=== PATIENT | female | born 1970 | race African-American/Black ===

== ENCOUNTER 2021-10-10 03:16 | Inpatient (IN) | payer OTHER ==
[2021-10-10] MEDS ORDERED: DEXAMETHASONE SOD PHOSPHATE 4 MG/1 ML VIAL IVPUSH ONE (04:01)
[2021-10-10 04:02] LABS: BASO % 1.1 % (0-2.0); EOS % 0.8 % (0-4.5); HEMATOCRIT 27.8 % (32.4-45.2); HEMOGLOBIN 9.1 GM/dL (10.7-15.3); LYMPH % 4.1 % (8-40); MCH 32.5 pg (25.7-33.7); MCHC 32.7 g/dl (32.0-36.0); MEAN CELL VOLUME 99.5 fl (80-96); MEAN PLT VOLUME 8.4 fl (7.5-11.1); MONO % 11.2 % (3.8-10.2); NEUT % 82.8 % (42.8-82.8); PLATELET COUNT 232 10^3/uL (134-434); RDW 18.2 % (11.6-15.6); WHITE BLOOD COUNT 8.8 K/mm3 (4.0-10.0)
[2021-10-10] MEDS ORDERED: DEXAMETHASONE SOD PHOSPHATE 10 MG/1 ML VIAL ONE (04:03)
[2021-10-10 04:19] LABS: CHLORIDE 93 mmol/L (98-107); SODIUM 133 mmol/L (136-145)
[2021-10-10 04:22] LABS: ALBUMIN 2.2 g/dl (3.4-5.0); ANION GAP 14 MMOL/L (8-16); BLOOD UREA NITROGEN 101.4 mg/dL (7-18); CALCIUM 7.9 mg/dL (8.5-10.1); CO2 27 mmol/L (21-32); GLUCOSE,RANDOM 122 mg/dL (74-106); MAGNESIUM 3.1 mg/dL (1.8-2.4)
[2021-10-10 04:25] LABS: PHOSPHOROUS 7.4 mg/dL (2.5-4.9); SGOT/AST 42 U/L (15-37); SGPT/ALT 29 U/L (13-61)
[2021-10-10 04:27] LABS: BILIRUBIN,TOTAL 0.6 mg/dL (0.2-1)
[2021-10-10 04:28] LABS: ALK PHOS 385 U/L (45-117)
[2021-10-10 04:37] LABS: CREATININE 9.6 mg/dL (0.55-1.3)
[2021-10-10 04:52] LABS: ACTIVATED PTT 36.1 SECONDS (25.2-36.5); INR 1.12 (0.83-1.09); PROTHROMBIN TIME (PATIENT) 12.9 SEC (9.7-13.0)
[2021-10-10] MEDS ORDERED: ACETAMINOPHEN 325 MG TABLET (FP) PO ONE (05:33)
[2021-10-10] MEDS ORDERED: morphine CARPU-JECT 2 MG/1 ML DISP.SYRIN IVPUSH ONE ×2 (07:35→08:09)
[2021-10-10] MEDS: GABAPENTIN 300 MG CAPSULE PO SCH ×3 (07:36→22:48)
[2021-10-10 08:33] LABS: BASO % 0.5 % (0-2.0); EOS % 0.2 % (0-4.5); HEMATOCRIT 26.8 % (32.4-45.2); LYMPH % 1.9 % (8-40); MCH 33.4 pg (25.7-33.7); MCHC 33.8 g/dl (32.0-36.0); MEAN CELL VOLUME 98.9 fl (80-96); MEAN PLT VOLUME 8.6 fl (7.5-11.1); MONO % 3.9 % (3.8-10.2); NEUT % 93.5 % (42.8-82.8); PLATELET COUNT 237 10^3/uL (134-434); RBC 2.71 M/mm3 (3.60-5.2); WHITE BLOOD COUNT 9.7 K/mm3 (4.0-10.0)
[2021-10-10] MEDS ORDERED: metoPROLOL SUCCINATE 25 MG TAB.SR.24H (FP) PO SCH (10:00)
[2021-10-10] MEDS ORDERED: FAMOTIDINE 20 MG TABLET ONE (10:18)
[2021-10-10] MEDS ORDERED: SODIUM ZIRCONIUM CYCLOSILICATE (LOKELMA) 5 GM PACKET ONE (10:18)
[2021-10-10] MEDS ORDERED: ASPIRIN 81 MG CHEWABLE TABLETS ONE (10:18)
[2021-10-10] MEDS ORDERED: MULTIVITAMINS (DAILY MVI) TABLET (FP) ONE (10:18)
[2021-10-10] MEDS ORDERED: oxyCODONE HCL 5 MG TABLET PO PRN (10:26)
[2021-10-10] MEDS ORDERED: HALOPERIDOL 2 MG TABLET PO PRN (10:26)
[2021-10-10] MEDS ORDERED: DOCUSATE SODIUM 100 MG CAPSULE (FP) PO PRN (10:26)
[2021-10-10] MEDS: TORSEMIDE 100 MG TABLET PO SCH (12:39)
[2021-10-10] MEDS: SODIUM ZIRCONIUM CYCLOSILICATE (LOKELMA) 10 GM PACKET PO SCH (12:39)
[2021-10-10] MEDS: ASPIRIN 81 MG CHEWABLE TABLETS PO SCH (12:39)
[2021-10-10] MEDS: VITAMIN B COMP W-C 1 EA TABLET (NEPHRO-VITE) PO SCH (12:39)
[2021-10-10] MEDS: MULTIVITAMINS (DAILY MVI) TABLET (FP) PO SCH (12:40)
[2021-10-10] MEDS: CALCITRIOL 0.25 MCG CAPSULE (FP) PO SCH (12:40)
[2021-10-10] MEDS: METOPROLOL SUCCINATE 100 MG, METOPROLOL SUCCINATE 25 MG PO SCH (12:40)
[2021-10-10] MEDS: FAMOTIDINE 20 MG TABLET PO SCH (12:40)
[2021-10-10 13:14] LABS: ALBUMIN 2.1 g/dl (3.4-5.0); ALK PHOS 385 U/L (45-117); ANION GAP 16 MMOL/L (8-16); BILIRUBIN,TOTAL 0.6 mg/dL (0.2-1); BLOOD UREA NITROGEN 99.4 mg/dL (7-18); CALCIUM 7.8 mg/dL (8.5-10.1); CHLORIDE 91 mmol/L (98-107); CO2 26 mmol/L (21-32); CREATININE 9.8 mg/dL (0.55-1.3); GLUCOSE,RANDOM 108 mg/dL (74-106); SGOT/AST 49 U/L (15-37); SGPT/ALT 32 U/L (13-61); SODIUM 133 mmol/L (136-145); TOT PROT 6.9 g/dl (6.4-8.2)
[2021-10-10] MEDS ORDERED: SODIUM CHLORIDE 250 ML IV PRN ×2 (14:04→14:09)
[2021-10-10] MEDS: HALOPERIDOL 5 MG TABLET PO PRN (15:16)
[2021-10-10] MEDS ORDERED: oxyCODONE HCL 5 MG TABLET ONE (17:31)
[2021-10-10] MEDS: oxyCODONE HCL 5 MG TABLET PO PRN (17:35)
[2021-10-10 18:58] VITALS: BMI 44.6
[2021-10-10] MEDS: ALBUMIN HUMAN 25% 12.5 GM/50 ML VIAL IV SCH ×4 (19:00→20:30)
[2021-10-10] MEDS ORDERED: PHENYTOIN NA EXTENDED 100 MG CAPSULE (FP) PO SCH (22:00)
[2021-10-10] MEDS ORDERED: VANCOMYCIN/WATER FOR INJ (PEG) 1,000 MG/200 ML BAG IVPB ONE (22:30)
[2021-10-10] MEDS: PHENYTOIN NA EXTENDED 100 MG CAPSULE (FP) PO SCH (22:40)
[2021-10-10] MEDS: MELATONIN 5 MG TABLETS PO SCH (22:48)
[2021-10-11] MEDS: oxyCODONE HCL 5 MG TABLET PO PRN (00:02)
[2021-10-11] MEDS: HALOPERIDOL 5 MG TABLET PO PRN ×2 (00:03→22:40)
[2021-10-11] MEDS: GABAPENTIN 300 MG CAPSULE PO SCH ×4 (06:03→22:15)
[2021-10-11] MEDS ORDERED: LORazepam 2 MG/ML SDV VIAL IVPUSH ONE (12:42)
[2021-10-11] MEDS ORDERED: metoPROLOL SUCCINATE 25 MG TAB.SR.24H (FP) ONE (13:13)
[2021-10-11] MEDS: ASPIRIN 81 MG CHEWABLE TABLETS PO SCH ×2 (13:22→13:51)
[2021-10-11] MEDS: MULTIVITAMINS (DAILY MVI) TABLET (FP) PO SCH ×2 (13:22→13:53)
[2021-10-11] MEDS: FAMOTIDINE 20 MG TABLET PO SCH ×2 (13:22→13:52)
[2021-10-11] MEDS: TORSEMIDE 100 MG TABLET PO SCH ×2 (13:22→13:27)
[2021-10-11] MEDS: VITAMIN B COMP W-C 1 EA TABLET (NEPHRO-VITE) PO SCH ×2 (13:22→13:51)
[2021-10-11] MEDS: CALCITRIOL 0.25 MCG CAPSULE (FP) PO SCH ×2 (13:23→13:53)
[2021-10-11] MEDS: PHENYTOIN NA EXTENDED 100 MG CAPSULE (FP) PO SCH ×3 (13:23→22:40)
[2021-10-11] MEDS: METOPROLOL SUCCINATE 100 MG, METOPROLOL SUCCINATE 25 MG PO SCH ×2 (13:23→13:53)
[2021-10-11] MEDS: HEPARIN NA (PORCINE) 5,000 UNITS/ML 1ML VIAL SQ SCH ×3 (13:24→22:15)
[2021-10-11] MEDS: SODIUM ZIRCONIUM CYCLOSILICATE (LOKELMA) 10 GM PACKET PO SCH (13:51)
[2021-10-11] MEDS: MELATONIN 5 MG TABLETS PO SCH (22:15)
[2021-10-12] MEDS: GABAPENTIN 300 MG CAPSULE PO SCH ×3 (06:41→23:37)
[2021-10-12] MEDS: HALOPERIDOL 5 MG TABLET PO PRN (06:48)
[2021-10-12] MEDS ORDERED: metoPROLOL SUCCINATE 25 MG TAB.SR.24H (FP) ONE (09:44)
[2021-10-12] MEDS: METOPROLOL SUCCINATE 100 MG, METOPROLOL SUCCINATE 25 MG PO SCH (10:25)
[2021-10-12] MEDS: TORSEMIDE 100 MG TABLET PO SCH (10:25)
[2021-10-12] MEDS: HEPARIN NA (PORCINE) 5,000 UNITS/ML 1ML VIAL SQ SCH ×2 (10:27→23:35)
[2021-10-12] MEDS: ASPIRIN 81 MG CHEWABLE TABLETS PO SCH (10:27)
[2021-10-12] MEDS: VITAMIN B COMP W-C 1 EA TABLET (NEPHRO-VITE) PO SCH (10:27)
[2021-10-12] MEDS: SODIUM ZIRCONIUM CYCLOSILICATE (LOKELMA) 10 GM PACKET PO SCH (10:27)
[2021-10-12] MEDS: CALCITRIOL 0.25 MCG CAPSULE (FP) PO SCH (10:27)
[2021-10-12] MEDS: FAMOTIDINE 20 MG TABLET PO SCH (10:27)
[2021-10-12] MEDS: MULTIVITAMINS (DAILY MVI) TABLET (FP) PO SCH (10:27)
[2021-10-12] MEDS: PHENYTOIN NA EXTENDED 100 MG CAPSULE (FP) PO SCH ×2 (10:28→23:36)
[2021-10-12] MEDS ORDERED: SODIUM CHLORIDE 250 ML IV PRN (11:22)
[2021-10-12] MEDS: CEFAZOLIN 500 MG in DEXTROSE 5%-WATER - 50 ML IVPB SCH ×2 (15:16→23:35)
[2021-10-12] MEDS: MELATONIN 5 MG TABLETS PO SCH (23:36)
[2021-10-13] MEDS: GABAPENTIN 300 MG CAPSULE PO SCH ×4 (06:22→23:00)
[2021-10-13] MEDS ORDERED: LORazepam 2 MG/ML SDV VIAL IVPB ONE ×2 (07:11)
[2021-10-13] MEDS: TORSEMIDE 100 MG TABLET PO SCH (10:08)
[2021-10-13] MEDS: PHENYTOIN NA EXTENDED 100 MG CAPSULE (FP) PO SCH ×2 (10:08→23:00)
[2021-10-13] MEDS: SODIUM ZIRCONIUM CYCLOSILICATE (LOKELMA) 10 GM PACKET PO SCH (10:08)
[2021-10-13] MEDS: ASPIRIN 81 MG CHEWABLE TABLETS PO SCH (10:08)
[2021-10-13] MEDS: MULTIVITAMINS (DAILY MVI) TABLET (FP) PO SCH (10:09)
[2021-10-13] MEDS: CALCITRIOL 0.25 MCG CAPSULE (FP) PO SCH (10:09)
[2021-10-13] MEDS: METOPROLOL SUCCINATE 100 MG, METOPROLOL SUCCINATE 25 MG PO SCH (10:09)
[2021-10-13] MEDS: VITAMIN B COMP W-C 1 EA TABLET (NEPHRO-VITE) PO SCH (10:09)
[2021-10-13] MEDS: FAMOTIDINE 20 MG TABLET PO SCH (10:09)
[2021-10-13] MEDS: HEPARIN NA (PORCINE) 5,000 UNITS/ML 1ML VIAL SQ SCH ×2 (13:02→23:00)
[2021-10-13] MEDS: CEFAZOLIN 500 MG in DEXTROSE 5%-WATER - 50 ML IVPB SCH ×2 (13:02→23:00)
[2021-10-13] MEDS ORDERED: EPOETIN ALFA-EPBX 4,000 UNIT/ML VIAL IVPUSH ONE (13:45)
[2021-10-13 14:24] LABS: HEMATOCRIT 24.9 % (32.4-45.2); HEMOGLOBIN 8.3 GM/dL (10.7-15.3); MCH 33.3 pg (25.7-33.7); MCHC 33.5 g/dl (32.0-36.0); MEAN CELL VOLUME 99.4 fl (80-96); MEAN PLT VOLUME 8.4 fl (7.5-11.1); PLATELET COUNT 218 10^3/uL (134-434); RDW 17.9 % (11.6-15.6); WHITE BLOOD COUNT 8.5 K/mm3 (4.0-10.0)
[2021-10-13 14:42] LABS: CHLORIDE 97 mmol/L (98-107); SODIUM 137 mmol/L (136-145)
[2021-10-13 14:43] LABS: CALCIUM 7.6 mg/dL (8.5-10.1)
[2021-10-13 14:45] LABS: ALBUMIN 1.8 g/dl (3.4-5.0); ANION GAP 13 MMOL/L (8-16); BLOOD UREA NITROGEN 82.4 mg/dL (7-18); CO2 27 mmol/L (21-32); GLUCOSE,RANDOM 104 mg/dL (74-106)
[2021-10-13 14:48] LABS: PHOSPHOROUS 6.9 mg/dL (2.5-4.9); SGOT/AST 37 U/L (15-37); SGPT/ALT 27 U/L (13-61)
[2021-10-13 14:49] LABS: BILIRUBIN,TOTAL 0.5 mg/dL (0.2-1); TOT PROT 6.7 g/dl (6.4-8.2)
[2021-10-13 14:50] LABS: ALK PHOS 485 U/L (45-117); CREATININE 8.4 mg/dL (0.55-1.3)
[2021-10-13 14:58] LABS: ANISOCYTOSIS 0; MACROCYTOSIS 0; ROULEAU 2+
[2021-10-13] MEDS: LORazepam 2 MG/ML SDV VIAL IVPUSH PRN ×2 (16:27→23:45)
[2021-10-13] MEDS: MELATONIN 5 MG TABLETS PO SCH (23:00)
[2021-10-13] MEDS: OLANZapine 5 MG TABLET PO SCH (23:00)
[2021-10-13] MEDS: oxyCODONE HCL 5 MG TABLET PO PRN (23:44)
[2021-10-14] MEDS: GABAPENTIN 300 MG CAPSULE PO SCH ×3 (06:03→22:16)
[2021-10-14] MEDS: LORazepam 2 MG/ML SDV VIAL IVPUSH PRN ×2 (06:59→18:20)
[2021-10-14] MEDS: oxyCODONE HCL 5 MG TABLET PO PRN (06:59)
[2021-10-14] MEDS: ASPIRIN 81 MG CHEWABLE TABLETS PO SCH (10:43)
[2021-10-14] MEDS: PHENYTOIN NA EXTENDED 100 MG CAPSULE (FP) PO SCH ×2 (10:43→22:16)
[2021-10-14] MEDS: VITAMIN B COMP W-C 1 EA TABLET (NEPHRO-VITE) PO SCH (10:44)
[2021-10-14] MEDS: SODIUM ZIRCONIUM CYCLOSILICATE (LOKELMA) 10 GM PACKET PO SCH (10:44)
[2021-10-14] MEDS: CALCITRIOL 0.25 MCG CAPSULE (FP) PO SCH (10:45)
[2021-10-14] MEDS: FAMOTIDINE 20 MG TABLET PO SCH (10:45)
[2021-10-14] MEDS: MULTIVITAMINS (DAILY MVI) TABLET (FP) PO SCH (10:45)
[2021-10-14] MEDS: OLANZapine 5 MG TABLET PO SCH ×2 (10:47→22:18)
[2021-10-14] MEDS: METOPROLOL SUCCINATE 100 MG, METOPROLOL SUCCINATE 25 MG PO SCH (10:47)
[2021-10-14] MEDS: FUROSEMIDE 40 MG/4 ML INJECTABLE VIAL IVPUSH SCH (11:13)
[2021-10-14] MEDS: HEPARIN NA (PORCINE) 5,000 UNITS/ML 1ML VIAL SQ SCH ×2 (11:14→22:15)
[2021-10-14] MEDS: CEFAZOLIN 500 MG in DEXTROSE 5%-WATER - 50 ML IVPB SCH ×2 (11:14→22:15)
[2021-10-14] MEDS ORDERED: HALOPERIDOL LACTATE 5 MG/ML IM ONE (19:15)
[2021-10-14] MEDS: MELATONIN 5 MG TABLETS PO SCH (22:16)
[2021-10-15] MEDS: GABAPENTIN 300 MG CAPSULE PO SCH ×3 (05:57→23:06)
[2021-10-15] MEDS: ASPIRIN 81 MG CHEWABLE TABLETS PO SCH (10:16)
[2021-10-15] MEDS: SODIUM ZIRCONIUM CYCLOSILICATE (LOKELMA) 10 GM PACKET PO SCH (10:17)
[2021-10-15] MEDS: PHENYTOIN NA EXTENDED 100 MG CAPSULE (FP) PO SCH ×2 (10:17→23:06)
[2021-10-15] MEDS: VITAMIN B COMP W-C 1 EA TABLET (NEPHRO-VITE) PO SCH (10:20)
[2021-10-15] MEDS: CALCITRIOL 0.25 MCG CAPSULE (FP) PO SCH (10:20)
[2021-10-15] MEDS: FAMOTIDINE 20 MG TABLET PO SCH (10:20)
[2021-10-15] MEDS: MULTIVITAMINS (DAILY MVI) TABLET (FP) PO SCH (10:21)
[2021-10-15] MEDS: METOPROLOL SUCCINATE 100 MG, METOPROLOL SUCCINATE 25 MG PO SCH (10:21)
[2021-10-15] MEDS: OLANZapine 5 MG TABLET PO SCH ×2 (10:22→23:11)
[2021-10-15] MEDS: CEFAZOLIN 500 MG in DEXTROSE 5%-WATER - 50 ML IVPB SCH ×2 (11:48→23:05)
[2021-10-15] MEDS: FUROSEMIDE 40 MG/4 ML INJECTABLE VIAL IVPUSH SCH (11:49)
[2021-10-15] MEDS: HEPARIN NA (PORCINE) 5,000 UNITS/ML 1ML VIAL SQ SCH ×2 (11:52→23:05)
[2021-10-15] MEDS: LORazepam 2 MG/ML SDV VIAL IVPUSH PRN (18:36)
[2021-10-15] MEDS: MELATONIN 5 MG TABLETS PO SCH (23:07)
[2021-10-16] MEDS: LORazepam 2 MG/ML SDV VIAL IVPUSH PRN ×2 (01:17→11:44)
[2021-10-16] MEDS: GABAPENTIN 300 MG CAPSULE PO SCH ×3 (06:56→22:57)
[2021-10-16] MEDS: CEFAZOLIN 500 MG in DEXTROSE 5%-WATER - 50 ML IVPB SCH ×2 (09:22→22:55)
[2021-10-16] MEDS: HEPARIN NA (PORCINE) 5,000 UNITS/ML 1ML VIAL SQ SCH ×2 (09:24→22:57)
[2021-10-16] MEDS: MULTIVITAMINS (DAILY MVI) TABLET (FP) PO SCH (09:32)
[2021-10-16] MEDS: FAMOTIDINE 20 MG TABLET PO SCH (09:32)
[2021-10-16] MEDS: VITAMIN B COMP W-C 1 EA TABLET (NEPHRO-VITE) PO SCH (09:32)
[2021-10-16] MEDS: CALCITRIOL 0.25 MCG CAPSULE (FP) PO SCH (09:32)
[2021-10-16] MEDS: OLANZapine 5 MG TABLET PO SCH (09:35)
[2021-10-16] MEDS: FUROSEMIDE 40 MG/4 ML INJECTABLE VIAL IVPUSH SCH (09:36)
[2021-10-16] MEDS: SODIUM ZIRCONIUM CYCLOSILICATE (LOKELMA) 10 GM PACKET PO SCH (09:36)
[2021-10-16] MEDS: PHENYTOIN NA EXTENDED 100 MG CAPSULE (FP) PO SCH ×2 (11:44→22:55)
[2021-10-16] MEDS ORDERED: SODIUM CHLORIDE 250 ML IV PRN (13:26)
[2021-10-16] MEDS ORDERED: EPOETIN ALFA-EPBX 10,000 UNIT/ML VIAL SQ ONE (14:00)
[2021-10-16] MEDS ORDERED: metoPROLOL SUCCINATE 25 MG TAB.SR.24H (FP) ONE ×2 (17:20→17:23)
[2021-10-16] MEDS: ASPIRIN 81 MG CHEWABLE TABLETS PO SCH (17:26)
[2021-10-16] MEDS: METOPROLOL SUCCINATE 100 MG, METOPROLOL SUCCINATE 25 MG PO SCH (17:27)
[2021-10-16] MEDS: MELATONIN 5 MG TABLETS PO SCH (22:55)
[2021-10-16] MEDS: oxyCODONE HCL 5 MG TABLET PO PRN (23:00)
[2021-10-17] MEDS: OLANZapine 5 MG TABLET PO SCH ×3 (00:24→21:39)
[2021-10-17] MEDS: LORazepam 2 MG/ML SDV VIAL IVPUSH PRN ×3 (00:27→21:41)
[2021-10-17] MEDS: GABAPENTIN 300 MG CAPSULE PO SCH ×3 (06:39→21:39)
[2021-10-17] MEDS: oxyCODONE HCL 5 MG TABLET PO PRN (07:22)
[2021-10-17] MEDS ORDERED: metoPROLOL SUCCINATE 25 MG TAB.SR.24H (FP) ONE (09:16)
[2021-10-17] MEDS: HEPARIN NA (PORCINE) 5,000 UNITS/ML 1ML VIAL SQ SCH ×2 (11:45→21:41)
[2021-10-17] MEDS: SODIUM ZIRCONIUM CYCLOSILICATE (LOKELMA) 10 GM PACKET PO SCH (11:45)
[2021-10-17] MEDS: VITAMIN B COMP W-C 1 EA TABLET (NEPHRO-VITE) PO SCH (11:46)
[2021-10-17] MEDS: CALCITRIOL 0.25 MCG CAPSULE (FP) PO SCH (11:46)
[2021-10-17] MEDS: METOPROLOL SUCCINATE 100 MG, METOPROLOL SUCCINATE 25 MG PO SCH (11:46)
[2021-10-17] MEDS: MULTIVITAMINS (DAILY MVI) TABLET (FP) PO SCH (11:46)
[2021-10-17] MEDS: ASPIRIN 81 MG CHEWABLE TABLETS PO SCH (11:47)
[2021-10-17] MEDS: PHENYTOIN NA EXTENDED 100 MG CAPSULE (FP) PO SCH ×2 (11:47→21:39)
[2021-10-17] MEDS: FUROSEMIDE 40 MG/4 ML INJECTABLE VIAL IVPUSH SCH (11:48)
[2021-10-17] MEDS: FAMOTIDINE 20 MG TABLET PO SCH (11:49)
[2021-10-17] MEDS: CEFAZOLIN 500 MG in DEXTROSE 5%-WATER - 50 ML IVPB SCH ×2 (12:40→21:41)
[2021-10-17] MEDS: MELATONIN 5 MG TABLETS PO SCH (21:39)
[2021-10-17] MEDS: TRIAMCINOLONE ACET 0.1% 60 ML LOTION TP SCH (22:20)
[2021-10-18] MEDS: GABAPENTIN 300 MG CAPSULE PO SCH ×3 (06:11→22:03)
[2021-10-18] MEDS ORDERED: SODIUM CHLORIDE 250 ML IV PRN (08:54)
[2021-10-18] MEDS ORDERED: EPOETIN ALFA-EPBX 10,000 UNIT/ML VIAL SQ ONE (09:00)
[2021-10-18] MEDS: HEPARIN NA (PORCINE) 5,000 UNITS/ML 1ML VIAL SQ SCH ×2 (09:55→22:03)
[2021-10-18] MEDS: VITAMIN B COMP W-C 1 EA TABLET (NEPHRO-VITE) PO SCH (09:57)
[2021-10-18] MEDS: SODIUM ZIRCONIUM CYCLOSILICATE (LOKELMA) 10 GM PACKET PO SCH (09:57)
[2021-10-18] MEDS: FAMOTIDINE 20 MG TABLET PO SCH (09:57)
[2021-10-18] MEDS: CALCITRIOL 0.25 MCG CAPSULE (FP) PO SCH (09:58)
[2021-10-18 10:27] LABS: HEMATOCRIT 24.7 % (32.4-45.2); HEMOGLOBIN 8.3 GM/dL (10.7-15.3); MCH 33.2 pg (25.7-33.7); MCHC 33.6 g/dl (32.0-36.0); MEAN CELL VOLUME 98.9 fl (80-96); MEAN PLT VOLUME 8.4 fl (7.5-11.1); PLATELET COUNT 247 10^3/uL (134-434); RBC 2.49 M/mm3 (3.60-5.2); RDW 18.2 % (11.6-15.6); WHITE BLOOD COUNT 7.2 K/mm3 (4.0-10.0)
[2021-10-18] MEDS: LORazepam 2 MG/ML SDV VIAL IVPUSH PRN (10:30)
[2021-10-18 10:38] LABS: CALCIUM 8.3 mg/dL (8.5-10.1)
[2021-10-18 10:39] LABS: BLOOD UREA NITROGEN 68.8 mg/dL (7-18)
[2021-10-18 10:42] LABS: CREATININE 7.4 mg/dL (0.55-1.3)
[2021-10-18] MEDS ORDERED: LORazepam 2 MG/ML SDV VIAL IVPUSH ONE (11:15)
[2021-10-18] MEDS: PHENYTOIN NA EXTENDED 100 MG CAPSULE (FP) PO SCH ×2 (11:55→22:05)
[2021-10-18] MEDS: ASPIRIN 81 MG CHEWABLE TABLETS PO SCH (11:55)
[2021-10-18] MEDS: OLANZapine 5 MG TABLET PO SCH ×2 (11:56→22:06)
[2021-10-18] MEDS: METOPROLOL SUCCINATE 100 MG, METOPROLOL SUCCINATE 25 MG PO SCH (11:56)
[2021-10-18] MEDS: CEFAZOLIN 500 MG in DEXTROSE 5%-WATER - 50 ML IVPB SCH ×2 (15:32→22:05)
[2021-10-18] MEDS: TRIAMCINOLONE ACET 0.1% 60 ML LOTION TP SCH ×2 (15:32→22:06)
[2021-10-18] MEDS: SILVER SULFADIAZINE 1% TOP CREAM 50 GM JAR TP SCH (15:33)
[2021-10-18] MEDS: FUROSEMIDE 40 MG/4 ML INJECTABLE VIAL IVPUSH SCH (15:33)
[2021-10-18] MEDS: MELATONIN 5 MG TABLETS PO SCH (22:03)
[2021-10-18] MEDS: oxyCODONE HCL 5 MG TABLET PO PRN (22:04)
[2021-10-19] MEDS: LORazepam 2 MG/ML SDV VIAL IVPUSH PRN ×3 (00:56→08:53)
[2021-10-19] MEDS: GABAPENTIN 300 MG CAPSULE PO SCH ×3 (06:36→22:00)
[2021-10-19] MEDS ORDERED: INSULIN (NOVOLOG) ASPART 100 UNITS/ML 10ML VIAL ONE (08:29)
[2021-10-19] MEDS ORDERED: metoPROLOL SUCCINATE 25 MG TAB.SR.24H (FP) ONE (09:05)
[2021-10-19] MEDS: ASPIRIN 81 MG CHEWABLE TABLETS PO SCH (09:12)
[2021-10-19] MEDS: CALCITRIOL 0.25 MCG CAPSULE (FP) PO SCH (09:12)
[2021-10-19] MEDS: FAMOTIDINE 20 MG TABLET PO SCH (09:12)
[2021-10-19] MEDS: METOPROLOL SUCCINATE 100 MG, METOPROLOL SUCCINATE 25 MG PO SCH (09:12)
[2021-10-19] MEDS: VITAMIN B COMP W-C 1 EA TABLET (NEPHRO-VITE) PO SCH (09:12)
[2021-10-19] MEDS: FUROSEMIDE 40 MG/4 ML INJECTABLE VIAL IVPUSH SCH ×2 (09:13→10:34)
[2021-10-19] MEDS: SILVER SULFADIAZINE 1% TOP CREAM 50 GM JAR TP SCH (09:13)
[2021-10-19] MEDS: PHENYTOIN NA EXTENDED 100 MG CAPSULE (FP) PO SCH ×2 (09:14→23:02)
[2021-10-19] MEDS: TRIAMCINOLONE ACET 0.1% 60 ML LOTION TP SCH ×2 (09:14→22:00)
[2021-10-19] MEDS: OLANZapine 5 MG TABLET PO SCH ×2 (09:14→23:02)
[2021-10-19] MEDS: HEPARIN NA (PORCINE) 5,000 UNITS/ML 1ML VIAL SQ SCH ×2 (09:14→22:00)
[2021-10-19] MEDS: CEFAZOLIN 500 MG in DEXTROSE 5%-WATER - 50 ML IVPB SCH ×2 (11:58→22:00)
[2021-10-19 12:08] LABS: SARS-CoV-2 NAA Not Detected (Not Detected)
[2021-10-19] MEDS: SODIUM ZIRCONIUM CYCLOSILICATE (LOKELMA) 10 GM PACKET PO SCH (13:52)
[2021-10-19 19:31] VITALS: BP 131/67; PULSE 76; TEMP 97.7
[2021-10-19] MEDS: MELATONIN 5 MG TABLETS PO SCH (22:00)
== END 2021-10-20 00:30 | DRG 194 ==
LOC: JER 03:16 → JERBED 04:58 → J7W 18:02
PROVIDERS: ADMIT Internal Medicine; ATTEND Internal Medicine
PROC: 5A1D70Z Performance of Urinary Filtration, Intermittent, Less than 6 Hours Per Day (ICD-10-PCS; principal; 2021-10-13)
PROC: 5A1D70Z Performance of Urinary Filtration, Intermittent, Less than 6 Hours Per Day (ICD-10-PCS; 2021-10-16)
PROC: 5A1D70Z Performance of Urinary Filtration, Intermittent, Less than 6 Hours Per Day (ICD-10-PCS; 2021-10-18)
DX: I13.2 Hypertensive heart and chronic kidney disease with heart failure and with stage 5 chronic kidney disease, or end stage renal disease (principal); N18.6 End stage renal disease; I50.22 Chronic systolic (congestive) heart failure; Z99.2 Dependence on renal dialysis; E66.9 Obesity, unspecified; Z68.41 Body mass index [BMI] 40.0-44.9, adult; E87.70 Fluid overload, unspecified; L03.115 Cellulitis of right lower limb; G62.9 Polyneuropathy, unspecified; B95.61 Methicillin susceptible Staphylococcus aureus infection as the cause of diseases classified elsewhere; Z91.15 Patient's noncompliance with renal dialysis; I44.7 Left bundle-branch block, unspecified; I25.10 Atherosclerotic heart disease of native coronary artery without angina pectoris; R45.1 Restlessness and agitation; R60.1 Generalized edema; E66.01 Morbid (severe) obesity due to excess calories; E87.5 Hyperkalemia; I43 Cardiomyopathy in diseases classified elsewhere; D64.9 Anemia, unspecified; G40.909 Epilepsy, unspecified, not intractable, without status epilepticus; L97.529 Non-pressure chronic ulcer of other part of left foot with unspecified severity; L97.519 Non-pressure chronic ulcer of other part of right foot with unspecified severity; B95.62 Methicillin resistant Staphylococcus aureus infection as the cause of diseases classified elsewhere; G92.8 Other toxic encephalopathy; Z91.19 Patient's noncompliance with other medical treatment and regimen; Z88.0 Allergy status to penicillin
CPT/HCPCS: 36415; 71045-TC-FY; 73610-TC-LT-FY; 73630-TC-LT; 73630-TC-RT-FY; 80048; 80053; 80185; 82962; 83735; 84100; 84484; 85025; 85027; 85610; 85730; 86803; 87040; 87186; 87340; 93005; 93010; 93306-TC; 97162-GP; 99285-25; C9803-CS; G0480; J1644; Q5106; U0003; U0005

== ENCOUNTER 2021-10-29 00:43 | Inpatient (IN) | payer OTHER ==
[2021-10-29] MEDS ORDERED: ACETAMINOPHEN 325 MG TABLET (FP) PO ONE (02:48)
[2021-10-29] MEDS ORDERED: ACETAMINOPHEN 325 MG TABLET (FP) ONE (03:28)
[2021-10-29 04:16] LABS: BASO % 0.6 % (0-2.0); EOS % 4.7 % (0-4.5); HEMATOCRIT 25.5 % (32.4-45.2); HEMOGLOBIN 8.5 GM/dL (10.7-15.3); LYMPH % 7.5 % (8-40); MCH 32.3 pg (25.7-33.7); MCHC 33.2 g/dl (32.0-36.0); MEAN CELL VOLUME 97.5 fl (80-96); MEAN PLT VOLUME 7.3 fl (7.5-11.1); MONO % 6.8 % (3.8-10.2); NEUT % 80.4 % (42.8-82.8); PLATELET COUNT 393 10^3/uL (134-434); RBC 2.62 M/mm3 (3.60-5.2); RDW 17.8 % (11.6-15.6); WHITE BLOOD COUNT 7.7 K/mm3 (4.0-10.0)
[2021-10-29 04:44] LABS: CALCIUM 8.1 mg/dL (8.5-10.1)
[2021-10-29 04:45] LABS: ALBUMIN 1.8 g/dl (3.4-5.0)
[2021-10-29 04:47] LABS: BILIRUBIN,TOTAL 0.3 mg/dL (0.2-1); TOT PROT 8.2 g/dl (6.4-8.2)
[2021-10-29 04:53] LABS: BLOOD UREA NITROGEN 34.6 mg/dL (7-18)
[2021-10-29] MEDS ORDERED: ACETAMINOPHEN 325 MG TABLET (FP) PO PRN (11:09)
[2021-10-29] MEDS ORDERED: metoPROLOL SUCCINATE 25 MG TAB.SR.24H (FP) PO SCH (11:15)
[2021-10-29] MEDS ORDERED: metoPROLOL SUCCINATE 25 MG TAB.SR.24H (FP) ONE (12:04)
[2021-10-29] MEDS: METOPROLOL SUCCINATE 100 MG, METOPROLOL SUCCINATE 25 MG PO SCH (12:07)
[2021-10-29] MEDS: HEPARIN NA (PORCINE) 5,000 UNITS/ML 1ML VIAL SQ SCH ×2 (13:17→21:04)
[2021-10-29] MEDS: GABAPENTIN 300 MG CAPSULE PO SCH ×2 (13:17→21:05)
[2021-10-29] MEDS: ACETAMINOPHEN 325 MG TABLET (FP) PO PRN (15:58)
[2021-10-29] MEDS ORDERED: SODIUM CHLORIDE 250 ML IV PRN (17:40)
[2021-10-29] MEDS: PHENYTOIN NA EXTENDED 100 MG CAPSULE (FP) PO SCH (21:04)
[2021-10-30] MEDS: ACETAMINOPHEN 325 MG TABLET (FP) PO PRN ×3 (02:08→17:50)
[2021-10-30] MEDS: GABAPENTIN 300 MG CAPSULE PO SCH ×3 (05:07→22:50)
[2021-10-30] MEDS: HEPARIN NA (PORCINE) 5,000 UNITS/ML 1ML VIAL SQ SCH ×3 (05:07→22:50)
[2021-10-30 08:34] LABS: BASO % 0.6 % (0-2.0); HEMATOCRIT 22.5 % (32.4-45.2); HEMOGLOBIN 7.3 GM/dL (10.7-15.3); LYMPH % 7.6 % (8-40); MCH 31.6 pg (25.7-33.7); MCHC 32.3 g/dl (32.0-36.0); MEAN CELL VOLUME 97.9 fl (80-96); MEAN PLT VOLUME 7.4 fl (7.5-11.1); MONO % 10.3 % (3.8-10.2); NEUT % 75.5 % (42.8-82.8); PLATELET COUNT 364 10^3/uL (134-434); RDW 17.6 % (11.6-15.6); WHITE BLOOD COUNT 6.6 K/mm3 (4.0-10.0)
[2021-10-30 08:59] LABS: ALBUMIN 1.8 g/dl (3.4-5.0); BLOOD UREA NITROGEN 47.4 mg/dL (7-18); CALCIUM 8.1 mg/dL (8.5-10.1); MAGNESIUM 2.6 mg/dL (1.8-2.4)
[2021-10-30 09:02] LABS: CREATININE 5.7 mg/dL (0.55-1.3); PHOSPHOROUS 4.9 mg/dL (2.5-4.9)
[2021-10-30 09:04] LABS: BILIRUBIN,TOTAL 0.4 mg/dL (0.2-1); TOT PROT 7.4 g/dl (6.4-8.2)
[2021-10-30] MEDS: TORSEMIDE 100 MG TABLET PO SCH (11:00)
[2021-10-30] MEDS ORDERED: HALOPERIDOL 5 MG TABLET PO ONE (11:30)
[2021-10-30] MEDS ORDERED: OXYBUTYNIN CHLORIDE 5 MG TABLET PO ONE (11:30)
[2021-10-30] MEDS ORDERED: LORazepam 2 MG/ML SDV VIAL IVPUSH ONE (11:30)
[2021-10-30] MEDS ORDERED: oxyCODONE HCL 5 MG TABLET PO ONE (12:30)
[2021-10-30] MEDS ORDERED: EPOETIN ALFA-EPBX 4,000 UNIT/ML VIAL IVPUSH ONE (13:00)
[2021-10-30] MEDS ORDERED: metoPROLOL SUCCINATE 25 MG TAB.SR.24H (FP) ONE (17:44)
[2021-10-30] MEDS: MULTIVITAMINS (DAILY MVI) TABLET (FP) PO SCH (17:45)
[2021-10-30] MEDS: VITAMIN B COMP W-C 1 EA TABLET (NEPHRO-VITE) PO SCH (17:45)
[2021-10-30] MEDS: METOPROLOL SUCCINATE 100 MG, METOPROLOL SUCCINATE 25 MG PO SCH (17:45)
[2021-10-30] MEDS: FAMOTIDINE 20 MG TABLET PO SCH (17:47)
[2021-10-30] MEDS: SILVER SULFADIAZINE 1% TOP CREAM 50 GM JAR TP SCH (17:50)
[2021-10-30] MEDS: PHENYTOIN NA EXTENDED 100 MG CAPSULE (FP) PO SCH (22:49)
[2021-10-31] MEDS: HEPARIN NA (PORCINE) 5,000 UNITS/ML 1ML VIAL SQ SCH ×3 (05:16→21:01)
[2021-10-31] MEDS: GABAPENTIN 300 MG CAPSULE PO SCH ×3 (05:16→21:01)
[2021-10-31 10:24] LABS: HEMATOCRIT 25.3 % (32.4-45.2); HEMOGLOBIN 8.4 GM/dL (10.7-15.3); MCH 32.4 pg (25.7-33.7); MCHC 33.1 g/dl (32.0-36.0); MEAN CELL VOLUME 98.1 fl (80-96); MEAN PLT VOLUME 7.7 fl (7.5-11.1); PLATELET COUNT 391 10^3/uL (134-434); RBC 2.58 M/mm3 (3.60-5.2); WHITE BLOOD COUNT 6.2 K/mm3 (4.0-10.0)
[2021-10-31] MEDS ORDERED: HALOPERIDOL 5 MG TABLET PO ONE ×2 (10:29)
[2021-10-31] MEDS ORDERED: metoPROLOL SUCCINATE 25 MG TAB.SR.24H (FP) ONE (10:44)
[2021-10-31 10:47] LABS: BLOOD UREA NITROGEN 37.9 mg/dL (7-18); CALCIUM 8.1 mg/dL (8.5-10.1)
[2021-10-31 10:48] LABS: ALBUMIN 1.9 g/dl (3.4-5.0); MAGNESIUM 2.6 mg/dL (1.8-2.4)
[2021-10-31 10:49] LABS: CREATININE 4.6 mg/dL (0.55-1.3); PHOSPHOROUS 4.4 mg/dL (2.5-4.9)
[2021-10-31 10:51] LABS: BILIRUBIN,TOTAL 0.4 mg/dL (0.2-1); TOT PROT 7.5 g/dl (6.4-8.2)
[2021-10-31] MEDS: METOPROLOL SUCCINATE 100 MG, METOPROLOL SUCCINATE 25 MG PO SCH (10:56)
[2021-10-31] MEDS: MULTIVITAMINS (DAILY MVI) TABLET (FP) PO SCH (10:56)
[2021-10-31] MEDS: VITAMIN B COMP W-C 1 EA TABLET (NEPHRO-VITE) PO SCH (10:56)
[2021-10-31] MEDS: FAMOTIDINE 20 MG TABLET PO SCH (10:56)
[2021-10-31] MEDS: TORSEMIDE 100 MG TABLET PO SCH (10:57)
[2021-10-31] MEDS: SILVER SULFADIAZINE 1% TOP CREAM 50 GM JAR TP SCH (17:10)
[2021-10-31] MEDS: LORazepam 2 MG/ML SDV VIAL IVPUSH SCH (17:13)
[2021-10-31] MEDS: PHENYTOIN NA EXTENDED 100 MG CAPSULE (FP) PO SCH (21:01)
[2021-11-01] MEDS: GABAPENTIN 300 MG CAPSULE PO SCH ×3 (05:10→21:24)
[2021-11-01] MEDS: HEPARIN NA (PORCINE) 5,000 UNITS/ML 1ML VIAL SQ SCH ×3 (05:10→21:24)
[2021-11-01] MEDS: HALOPERIDOL 5 MG TABLET PO PRN (10:28)
[2021-11-01] MEDS: AMINO ACIDS/PROTEIN HYDROLYS 30 ML LIQUID.PKT PO SCH (10:28)
[2021-11-01] MEDS: LORazepam 2 MG/ML SDV VIAL IVPUSH SCH (10:28)
[2021-11-01] MEDS ORDERED: EPOETIN ALFA-EPBX 10,000 UNIT/ML VIAL SQ ONE (11:00)
[2021-11-01 11:52] LABS: HEMATOCRIT 23.1 % (32.4-45.2); HEMOGLOBIN 7.6 GM/dL (10.7-15.3); MCH 31.7 pg (25.7-33.7); MCHC 32.8 g/dl (32.0-36.0); MEAN CELL VOLUME 96.6 fl (80-96); MEAN PLT VOLUME 7.7 fl (7.5-11.1); PLATELET COUNT 374 10^3/uL (134-434); RBC 2.39 M/mm3 (3.60-5.2); RDW 17.9 % (11.6-15.6); WHITE BLOOD COUNT 6.6 K/mm3 (4.0-10.0)
[2021-11-01 12:10] LABS: CALCIUM 7.7 mg/dL (8.5-10.1)
[2021-11-01 12:11] LABS: BLOOD UREA NITROGEN 43.1 mg/dL (7-18)
[2021-11-01 12:14] LABS: CREATININE 5.2 mg/dL (0.55-1.3)
[2021-11-01] MEDS ORDERED: metoPROLOL SUCCINATE 25 MG TAB.SR.24H (FP) ONE (13:41)
[2021-11-01] MEDS: VITAMIN B COMP W-C 1 EA TABLET (NEPHRO-VITE) PO SCH (14:47)
[2021-11-01] MEDS: METOPROLOL SUCCINATE 100 MG, METOPROLOL SUCCINATE 25 MG PO SCH (14:48)
[2021-11-01] MEDS: MULTIVITAMINS (DAILY MVI) TABLET (FP) PO SCH (14:48)
[2021-11-01] MEDS: ERGOCALCIFEROL (VIT D2) 50,000 UNIT (1.25 MG) CAPSULE PO SCH (14:48)
[2021-11-01] MEDS: FAMOTIDINE 20 MG TABLET PO SCH (14:49)
[2021-11-01] MEDS: SILVER SULFADIAZINE 1% TOP CREAM 50 GM JAR TP SCH (14:49)
[2021-11-01] MEDS: TORSEMIDE 100 MG TABLET PO SCH (14:50)
[2021-11-01] MEDS: PHENYTOIN NA EXTENDED 100 MG CAPSULE (FP) PO SCH (21:24)
[2021-11-02] MEDS: HEPARIN NA (PORCINE) 5,000 UNITS/ML 1ML VIAL SQ SCH ×2 (06:01→15:02)
[2021-11-02] MEDS: GABAPENTIN 300 MG CAPSULE PO SCH ×2 (06:01→15:00)
[2021-11-02] MEDS ORDERED: metoPROLOL SUCCINATE 25 MG TAB.SR.24H (FP) ONE ×2 (08:52→08:54)
[2021-11-02] MEDS: METOPROLOL SUCCINATE 100 MG, METOPROLOL SUCCINATE 25 MG PO SCH (09:29)
[2021-11-02] MEDS: VITAMIN B COMP W-C 1 EA TABLET (NEPHRO-VITE) PO SCH (09:29)
[2021-11-02] MEDS: AMINO ACIDS/PROTEIN HYDROLYS 30 ML LIQUID.PKT PO SCH (09:30)
[2021-11-02] MEDS: LORazepam 2 MG/ML SDV VIAL IVPUSH SCH (09:31)
[2021-11-02] MEDS: FAMOTIDINE 20 MG TABLET PO SCH (09:32)
[2021-11-02] MEDS: MULTIVITAMINS (DAILY MVI) TABLET (FP) PO SCH (09:33)
[2021-11-02] MEDS: ACETAMINOPHEN 325 MG TABLET (FP) PO PRN (09:58)
[2021-11-02] MEDS: TORSEMIDE 100 MG TABLET PO SCH (12:44)
[2021-11-02] MEDS: MINERAL OIL/PET HY-PHL TOPICAL OINTMENT 454 GM JAR TP SCH (16:27)
[2021-11-02] MEDS: SILVER SULFADIAZINE 1% TOP CREAM 50 GM JAR TP SCH (16:27)
[2021-11-03] MEDS: GABAPENTIN 300 MG CAPSULE PO SCH ×4 (00:02→21:13)
[2021-11-03] MEDS: PHENYTOIN NA EXTENDED 100 MG CAPSULE (FP) PO SCH ×2 (00:02→21:12)
[2021-11-03] MEDS: HEPARIN NA (PORCINE) 5,000 UNITS/ML 1ML VIAL SQ SCH ×4 (00:02→21:13)
[2021-11-03] MEDS: AMINO ACIDS/PROTEIN HYDROLYS 30 ML LIQUID.PKT PO SCH (07:46)
[2021-11-03] MEDS: MULTIVITAMINS (DAILY MVI) TABLET (FP) PO SCH (09:15)
[2021-11-03] MEDS: FAMOTIDINE 20 MG TABLET PO SCH (09:15)
[2021-11-03] MEDS: VITAMIN B COMP W-C 1 EA TABLET (NEPHRO-VITE) PO SCH (09:15)
[2021-11-03] MEDS: HALOPERIDOL 5 MG TABLET PO PRN (09:16)
[2021-11-03] MEDS: LORazepam 2 MG/ML SDV VIAL IVPUSH SCH (09:42)
[2021-11-03 10:25] LABS: BASO % 1.1 % (0-2.0); EOS % 8.1 % (0-4.5); HEMATOCRIT 23.3 % (32.4-45.2); HEMOGLOBIN 7.6 GM/dL (10.7-15.3); LYMPH % 7.5 % (8-40); MCH 31.6 pg (25.7-33.7); MCHC 32.6 g/dl (32.0-36.0); MEAN PLT VOLUME 7.8 fl (7.5-11.1); MONO % 14.3 % (3.8-10.2); PLATELET COUNT 358 10^3/uL (134-434); RDW 17.9 % (11.6-15.6); WHITE BLOOD COUNT 5.9 K/mm3 (4.0-10.0)
[2021-11-03 10:50] LABS: ALBUMIN 1.7 g/dl (3.4-5.0); BLOOD UREA NITROGEN 52.7 mg/dL (7-18); CALCIUM 7.7 mg/dL (8.5-10.1)
[2021-11-03 10:52] LABS: CREATININE 5.5 mg/dL (0.55-1.3)
[2021-11-03 10:54] LABS: BILIRUBIN,TOTAL 0.5 mg/dL (0.2-1); TOT PROT 7.3 g/dl (6.4-8.2)
[2021-11-03] MEDS ORDERED: SODIUM CHLORIDE 250 ML IV PRN (11:00)
[2021-11-03] MEDS ORDERED: EPOETIN ALFA-EPBX 10,000 UNIT/ML VIAL IVPUSH ONE (11:00)
[2021-11-03] MEDS: ALBUMIN HUMAN 25% 12.5 GM/50 ML VIAL IV SCH ×2 (11:00→11:30)
[2021-11-03] MEDS: ACETAMINOPHEN 325 MG TABLET (FP) PO PRN (12:41)
[2021-11-03] MEDS: MINERAL OIL/PET HY-PHL TOPICAL OINTMENT 454 GM JAR TP SCH (15:20)
[2021-11-03] MEDS: SILVER SULFADIAZINE 1% TOP CREAM 50 GM JAR TP SCH (15:25)
[2021-11-03] MEDS: TORSEMIDE 100 MG TABLET PO SCH (15:29)
[2021-11-03] MEDS: METOPROLOL SUCCINATE 100 MG, METOPROLOL SUCCINATE 25 MG PO SCH (15:29)
[2021-11-04] MEDS: HEPARIN NA (PORCINE) 5,000 UNITS/ML 1ML VIAL SQ SCH ×3 (05:36→21:10)
[2021-11-04] MEDS: GABAPENTIN 300 MG CAPSULE PO SCH ×3 (05:36→21:10)
[2021-11-04] MEDS: AMINO ACIDS/PROTEIN HYDROLYS 30 ML LIQUID.PKT PO SCH (08:41)
[2021-11-04] MEDS ORDERED: metoPROLOL SUCCINATE 25 MG TAB.SR.24H (FP) ONE (09:19)
[2021-11-04] MEDS: VITAMIN B COMP W-C 1 EA TABLET (NEPHRO-VITE) PO SCH (09:23)
[2021-11-04] MEDS: MULTIVITAMINS (DAILY MVI) TABLET (FP) PO SCH (09:23)
[2021-11-04] MEDS: METOPROLOL SUCCINATE 100 MG, METOPROLOL SUCCINATE 25 MG PO SCH (09:23)
[2021-11-04] MEDS: FAMOTIDINE 20 MG TABLET PO SCH (09:23)
[2021-11-04] MEDS: LORazepam 2 MG/ML SDV VIAL IVPUSH SCH (09:25)
[2021-11-04] MEDS: TORSEMIDE 100 MG TABLET PO SCH (09:33)
[2021-11-04 09:34] LABS: BASO % 1.2 % (0-2.0); EOS % 7.2 % (0-4.5); HEMATOCRIT 23.4 % (32.4-45.2); HEMOGLOBIN 7.8 GM/dL (10.7-15.3); LYMPH % 8.4 % (8-40); MCH 32.4 pg (25.7-33.7); MCHC 33.2 g/dl (32.0-36.0); MEAN CELL VOLUME 97.6 fl (80-96); MEAN PLT VOLUME 7.6 fl (7.5-11.1); NEUT % 66.2 % (42.8-82.8); PLATELET COUNT 357 10^3/uL (134-434); RDW 18.2 % (11.6-15.6); WHITE BLOOD COUNT 5.2 K/mm3 (4.0-10.0)
[2021-11-04 10:00] LABS: ALBUMIN 1.7 g/dl (3.4-5.0); CALCIUM 7.7 mg/dL (8.5-10.1)
[2021-11-04 10:03] LABS: BILIRUBIN,TOTAL 0.6 mg/dL (0.2-1); CREATININE 4.9 mg/dL (0.55-1.3)
[2021-11-04 10:04] LABS: TOT PROT 7.2 g/dl (6.4-8.2)
[2021-11-04] MEDS: MINERAL OIL/PET HY-PHL TOPICAL OINTMENT 454 GM JAR TP SCH (13:01)
[2021-11-04] MEDS: SILVER SULFADIAZINE 1% TOP CREAM 50 GM JAR TP SCH (13:08)
[2021-11-04] MEDS: PHENYTOIN NA EXTENDED 100 MG CAPSULE (FP) PO SCH (21:10)
[2021-11-05] MEDS: HEPARIN NA (PORCINE) 5,000 UNITS/ML 1ML VIAL SQ SCH ×4 (05:34→21:39)
[2021-11-05] MEDS: GABAPENTIN 300 MG CAPSULE PO SCH ×3 (05:34→21:35)
[2021-11-05] MEDS ORDERED: metoPROLOL SUCCINATE 25 MG TAB.SR.24H (FP) ONE ×2 (09:15→15:57)
[2021-11-05] MEDS: AMINO ACIDS/PROTEIN HYDROLYS 30 ML LIQUID.PKT PO SCH (09:47)
[2021-11-05] MEDS: VITAMIN B COMP W-C 1 EA TABLET (NEPHRO-VITE) PO SCH (09:47)
[2021-11-05] MEDS: FAMOTIDINE 20 MG TABLET PO SCH (09:47)
[2021-11-05] MEDS: LORazepam 2 MG/ML SDV VIAL IVPUSH SCH (13:45)
[2021-11-05] MEDS: MULTIVITAMINS (DAILY MVI) TABLET (FP) PO SCH (13:45)
[2021-11-05 14:21] LABS: BF WBC & OTHER NUCLEATED CELLS 738 /mm3
[2021-11-05 14:34] LABS: BODY FLUID MACROPHAGES 56 %; BODY FLUID MESOTHELIAL 1 %; BODY FLUID MONOCYTE 13 %
[2021-11-05] MEDS: TORSEMIDE 100 MG TABLET PO SCH (15:27)
[2021-11-05] MEDS: METOPROLOL SUCCINATE 100 MG, METOPROLOL SUCCINATE 25 MG PO SCH (16:01)
[2021-11-05] MEDS: SILVER SULFADIAZINE 1% TOP CREAM 50 GM JAR TP SCH (16:02)
[2021-11-05] MEDS: MINERAL OIL/PET HY-PHL TOPICAL OINTMENT 454 GM JAR TP SCH (16:02)
[2021-11-05] MEDS: PHENYTOIN NA EXTENDED 100 MG CAPSULE (FP) PO SCH (21:36)
[2021-11-06] MEDS: GABAPENTIN 300 MG CAPSULE PO SCH ×3 (07:04→22:09)
[2021-11-06] MEDS: HEPARIN NA (PORCINE) 5,000 UNITS/ML 1ML VIAL SQ SCH ×3 (07:04→22:09)
[2021-11-06] MEDS ORDERED: metoPROLOL SUCCINATE 25 MG TAB.SR.24H (FP) ONE (09:13)
[2021-11-06] MEDS: AMINO ACIDS/PROTEIN HYDROLYS 30 ML LIQUID.PKT PO SCH (09:24)
[2021-11-06] MEDS: TORSEMIDE 100 MG TABLET PO SCH (09:24)
[2021-11-06] MEDS: METOPROLOL SUCCINATE 100 MG, METOPROLOL SUCCINATE 25 MG PO SCH (09:24)
[2021-11-06] MEDS: MULTIVITAMINS (DAILY MVI) TABLET (FP) PO SCH (09:25)
[2021-11-06] MEDS: FAMOTIDINE 20 MG TABLET PO SCH (09:25)
[2021-11-06] MEDS: VITAMIN B COMP W-C 1 EA TABLET (NEPHRO-VITE) PO SCH (09:26)
[2021-11-06] MEDS: SILVER SULFADIAZINE 1% TOP CREAM 50 GM JAR TP SCH (09:27)
[2021-11-06] MEDS: MINERAL OIL/PET HY-PHL TOPICAL OINTMENT 454 GM JAR TP SCH (09:28)
[2021-11-06] MEDS: LORazepam 2 MG/ML SDV VIAL IVPUSH SCH (11:30)
[2021-11-06] MEDS ORDERED: SODIUM CHLORIDE 250 ML IV PRN (12:37)
[2021-11-06] MEDS: PHENYTOIN NA EXTENDED 100 MG CAPSULE (FP) PO SCH (22:08)
[2021-11-07] MEDS: HEPARIN NA (PORCINE) 5,000 UNITS/ML 1ML VIAL SQ SCH ×3 (05:44→21:22)
[2021-11-07] MEDS: GABAPENTIN 300 MG CAPSULE PO SCH ×3 (05:44→21:21)
[2021-11-07 07:44] LABS: BASO % 1.3 % (0-2.0); EOS % 7.8 % (0-4.5); LYMPH % 9.7 % (8-40); MCH 32.3 pg (25.7-33.7); MCHC 33.1 g/dl (32.0-36.0); MEAN CELL VOLUME 97.5 fl (80-96); MEAN PLT VOLUME 7.5 fl (7.5-11.1); MONO % 17.3 % (3.8-10.2); NEUT % 63.9 % (42.8-82.8); PLATELET COUNT 336 10^3/uL (134-434); RBC 2.46 M/mm3 (3.60-5.2); RDW 18.1 % (11.6-15.6)
[2021-11-07 08:01] LABS: BLOOD UREA NITROGEN 44.8 mg/dL (7-18); CALCIUM 7.9 mg/dL (8.5-10.1)
[2021-11-07] MEDS ORDERED: metoPROLOL SUCCINATE 25 MG TAB.SR.24H (FP) ONE (12:12)
[2021-11-07] MEDS: LORazepam 2 MG/ML SDV VIAL IVPUSH SCH (12:42)
[2021-11-07] MEDS: AMINO ACIDS/PROTEIN HYDROLYS 30 ML LIQUID.PKT PO SCH (12:42)
[2021-11-07] MEDS: METOPROLOL SUCCINATE 100 MG, METOPROLOL SUCCINATE 25 MG PO SCH (12:43)
[2021-11-07] MEDS: MULTIVITAMINS (DAILY MVI) TABLET (FP) PO SCH (12:44)
[2021-11-07] MEDS: VITAMIN B COMP W-C 1 EA TABLET (NEPHRO-VITE) PO SCH (12:44)
[2021-11-07] MEDS: MINERAL OIL/PET HY-PHL TOPICAL OINTMENT 454 GM JAR TP SCH (12:44)
[2021-11-07] MEDS: FAMOTIDINE 20 MG TABLET PO SCH (12:44)
[2021-11-07] MEDS: TORSEMIDE 100 MG TABLET PO SCH (12:45)
[2021-11-07] MEDS: SILVER SULFADIAZINE 1% TOP CREAM 50 GM JAR TP SCH (12:46)
[2021-11-07 14:11] LABS: BODY FLUID ALBUMIN 1.6 g/dL (Not Estab.)
[2021-11-07] MEDS: DOXYCYCLINE HYCLATE 100 MG CAPSULE PO SCH (18:54)
[2021-11-07] MEDS: PHENYTOIN NA EXTENDED 100 MG CAPSULE (FP) PO SCH (21:21)
[2021-11-08] MEDS: HEPARIN NA (PORCINE) 5,000 UNITS/ML 1ML VIAL SQ SCH ×3 (05:12→21:48)
[2021-11-08] MEDS: GABAPENTIN 300 MG CAPSULE PO SCH ×3 (05:12→21:48)
[2021-11-08] MEDS ORDERED: metoPROLOL SUCCINATE 25 MG TAB.SR.24H (FP) ONE (09:46)
[2021-11-08] MEDS: FAMOTIDINE 20 MG TABLET PO SCH (09:51)
[2021-11-08] MEDS: VITAMIN B COMP W-C 1 EA TABLET (NEPHRO-VITE) PO SCH (09:51)
[2021-11-08] MEDS: MULTIVITAMINS (DAILY MVI) TABLET (FP) PO SCH (09:51)
[2021-11-08] MEDS: AMINO ACIDS/PROTEIN HYDROLYS 30 ML LIQUID.PKT PO SCH (09:51)
[2021-11-08] MEDS: METOPROLOL SUCCINATE 100 MG, METOPROLOL SUCCINATE 25 MG PO SCH (09:52)
[2021-11-08] MEDS: DOXYCYCLINE HYCLATE 100 MG CAPSULE PO SCH ×2 (09:52→18:46)
[2021-11-08] MEDS: SILVER SULFADIAZINE 1% TOP CREAM 50 GM JAR TP SCH (09:53)
[2021-11-08] MEDS: MINERAL OIL/PET HY-PHL TOPICAL OINTMENT 454 GM JAR TP SCH (09:53)
[2021-11-08] MEDS: TORSEMIDE 100 MG TABLET PO SCH (09:55)
[2021-11-08] MEDS: ERGOCALCIFEROL (VIT D2) 50,000 UNIT (1.25 MG) CAPSULE PO SCH (09:56)
[2021-11-08] MEDS ORDERED: SODIUM CHLORIDE 250 ML IV PRN (13:03)
[2021-11-08] MEDS ORDERED: EPOETIN ALFA-EPBX 10,000 UNIT/ML VIAL SQ ONE (13:15)
[2021-11-08] MEDS: LORazepam 2 MG/ML SDV VIAL IVPUSH SCH (13:50)
[2021-11-08] MEDS: PHENYTOIN NA EXTENDED 100 MG CAPSULE (FP) PO SCH (21:48)
[2021-11-09] MEDS: GABAPENTIN 300 MG CAPSULE PO SCH ×4 (05:08→21:49)
[2021-11-09] MEDS: HEPARIN NA (PORCINE) 5,000 UNITS/ML 1ML VIAL SQ SCH ×2 (05:08→05:22)
[2021-11-09] MEDS ORDERED: ONDANSETRON 4 MG/2 ML VIAL IVPUSH PRN (09:05)
[2021-11-09] MEDS ORDERED: PROMETHAZINE HCL 25 MG/1 ML VIAL IVPUSH PRN (09:05)
[2021-11-09] MEDS ORDERED: MIDAZOLAM HCL 2 MG/2 ML SINGLE DOSE VIAL ONE (09:22)
[2021-11-09] MEDS ORDERED: LIDOCAINE HCL 1%, 10 MG/ML (20ML VIAL) NR ONE (09:28)
[2021-11-09] MEDS ORDERED: METOPROLOL TARTRATE 5 MG/5 ML VIAL ONE (09:30)
[2021-11-09] MEDS ORDERED: metoPROLOL SUCCINATE 25 MG TAB.SR.24H (FP) ONE (09:58)
[2021-11-09] MEDS: METOPROLOL SUCCINATE 100 MG, METOPROLOL SUCCINATE 25 MG PO SCH (10:44)
[2021-11-09] MEDS: AMINO ACIDS/PROTEIN HYDROLYS 30 ML LIQUID.PKT PO SCH (10:44)
[2021-11-09] MEDS: FAMOTIDINE 20 MG TABLET PO SCH (10:44)
[2021-11-09] MEDS: MULTIVITAMINS (DAILY MVI) TABLET (FP) PO SCH (10:44)
[2021-11-09] MEDS: TORSEMIDE 100 MG TABLET PO SCH (10:44)
[2021-11-09] MEDS: DOXYCYCLINE HYCLATE 100 MG CAPSULE PO SCH ×2 (10:45→17:24)
[2021-11-09] MEDS: VITAMIN B COMP W-C 1 EA TABLET (NEPHRO-VITE) PO SCH (10:45)
[2021-11-09] MEDS: MINERAL OIL/PET HY-PHL TOPICAL OINTMENT 454 GM JAR TP SCH (10:46)
[2021-11-09] MEDS: LORazepam 2 MG/ML SDV VIAL IVPUSH SCH (10:48)
[2021-11-09] MEDS: LACTATED RINGERS SOLUTION 1,000 ML IV SCH (10:50)
[2021-11-09] MEDS: SILVER SULFADIAZINE 1% TOP CREAM 50 GM JAR TP SCH (10:50)
[2021-11-09] MEDS ORDERED: ACETAMINOPHEN 325 MG TABLET (FP) PO ONE (19:45)
[2021-11-09] MEDS: PHENYTOIN NA EXTENDED 100 MG CAPSULE (FP) PO SCH (21:49)
[2021-11-10] MEDS ORDERED: ACETAMINOPHEN 325 MG TABLET (FP) PO ONE (02:48)
[2021-11-10] MEDS: GABAPENTIN 300 MG CAPSULE PO SCH ×3 (05:06→22:03)
[2021-11-10] MEDS: AMINO ACIDS/PROTEIN HYDROLYS 30 ML LIQUID.PKT PO SCH (08:59)
[2021-11-10] MEDS: LORazepam 2 MG/ML SDV VIAL IVPUSH SCH (08:59)
[2021-11-10] MEDS: MINERAL OIL/PET HY-PHL TOPICAL OINTMENT 454 GM JAR TP SCH (09:00)
[2021-11-10] MEDS: DOXYCYCLINE HYCLATE 100 MG CAPSULE PO SCH ×2 (09:03→17:19)
[2021-11-10] MEDS: MULTIVITAMINS (DAILY MVI) TABLET (FP) PO SCH (09:03)
[2021-11-10] MEDS: FAMOTIDINE 20 MG TABLET PO SCH (09:03)
[2021-11-10] MEDS: VITAMIN B COMP W-C 1 EA TABLET (NEPHRO-VITE) PO SCH (09:03)
[2021-11-10] MEDS: LACTATED RINGERS SOLUTION 1,000 ML IV SCH (09:04)
[2021-11-10] MEDS: SILVER SULFADIAZINE 1% TOP CREAM 50 GM JAR TP SCH (09:04)
[2021-11-10] MEDS ORDERED: SIMETHICONE 80 MG TAB.CHEW (FP) PO PRN ×2 (09:22→09:50)
[2021-11-10] MEDS ORDERED: BISMUTH SUBSALICYLATE 262 MG/15 ML BTL PO ONE (09:28)
[2021-11-10] MEDS: METOPROLOL SUCCINATE 100 MG, METOPROLOL SUCCINATE 25 MG PO SCH (10:40)
[2021-11-10] MEDS ORDERED: SODIUM CHLORIDE 250 ML IV PRN (10:50)
[2021-11-10] MEDS ORDERED: EPOETIN ALFA-EPBX 10,000 UNIT/ML VIAL SQ ONE (11:00)
[2021-11-10] MEDS: ACETAMINOPHEN 500 MG TABLET (FP) PO PRN (13:38)
[2021-11-10] MEDS: TORSEMIDE 100 MG TABLET PO SCH (13:39)
[2021-11-10] MEDS: PANTOPRAZOLE 40 MG TABLET PO SCH (13:39)
[2021-11-10] MEDS: HEPARIN NA (PORCINE) 5,000 UNITS/ML 1ML VIAL SQ SCH ×2 (13:39→22:03)
[2021-11-10] MEDS ORDERED: LORazepam 1 MG TABLET PO ONE (15:39)
[2021-11-10] MEDS ORDERED: ALPRAZolam 1 MG TABLET PO PRN (19:05)
[2021-11-10] MEDS: PHENYTOIN NA EXTENDED 100 MG CAPSULE (FP) PO SCH (22:03)
[2021-11-11] MEDS: GABAPENTIN 300 MG CAPSULE PO SCH ×3 (05:23→21:11)
[2021-11-11] MEDS: HEPARIN NA (PORCINE) 5,000 UNITS/ML 1ML VIAL SQ SCH ×3 (05:23→21:11)
[2021-11-11] MEDS ORDERED: metoPROLOL SUCCINATE 25 MG TAB.SR.24H (FP) ONE (09:46)
[2021-11-11] MEDS: PANTOPRAZOLE 40 MG TABLET PO SCH (09:52)
[2021-11-11] MEDS: ACETAMINOPHEN 500 MG TABLET (FP) PO PRN (09:52)
[2021-11-11] MEDS: DOXYCYCLINE HYCLATE 100 MG CAPSULE PO SCH ×2 (09:52→18:11)
[2021-11-11] MEDS: METOPROLOL SUCCINATE 100 MG, METOPROLOL SUCCINATE 25 MG PO SCH (09:52)
[2021-11-11] MEDS: FAMOTIDINE 20 MG TABLET PO SCH (09:53)
[2021-11-11] MEDS: MINERAL OIL/PET HY-PHL TOPICAL OINTMENT 454 GM JAR TP SCH (09:53)
[2021-11-11] MEDS: VITAMIN B COMP W-C 1 EA TABLET (NEPHRO-VITE) PO SCH (09:53)
[2021-11-11] MEDS: SILVER SULFADIAZINE 1% TOP CREAM 50 GM JAR TP SCH (09:54)
[2021-11-11] MEDS: TORSEMIDE 100 MG TABLET PO SCH (09:54)
[2021-11-11] MEDS: AMINO ACIDS/PROTEIN HYDROLYS 30 ML LIQUID.PKT PO SCH (09:54)
[2021-11-11] MEDS: MULTIVITAMINS (DAILY MVI) TABLET (FP) PO SCH (09:55)
[2021-11-11 10:57] LABS: HEMATOCRIT 25.2 % (32.4-45.2); HEMOGLOBIN 8.4 GM/dL (10.7-15.3); MCHC 33.2 g/dl (32.0-36.0); MEAN CELL VOLUME 96.4 fl (80-96); MEAN PLT VOLUME 7.6 fl (7.5-11.1); PLATELET COUNT 298 10^3/uL (134-434); RBC 2.61 M/mm3 (3.60-5.2); RDW 17.7 % (11.6-15.6); WHITE BLOOD COUNT 5.6 K/mm3 (4.0-10.0)
[2021-11-11 11:00] LABS: CALCIUM 7.7 mg/dL (8.5-10.1)
[2021-11-11 11:01] LABS: ALBUMIN 1.8 g/dl (3.4-5.0); MAGNESIUM 2.1 mg/dL (1.8-2.4); PHOSPHOROUS 5.9 mg/dL (2.5-4.9)
[2021-11-11 11:03] LABS: BILIRUBIN,TOTAL 0.4 mg/dL (0.2-1); CREATININE 5.2 mg/dL (0.55-1.3); TOT PROT 6.9 g/dl (6.4-8.2)
[2021-11-11 16:49] VITALS: BMI 40.8
[2021-11-11] MEDS: PHENYTOIN NA EXTENDED 100 MG CAPSULE (FP) PO SCH (21:11)
[2021-11-12] MEDS: ACETAMINOPHEN 500 MG TABLET (FP) PO PRN ×3 (03:13→18:49)
[2021-11-12] MEDS: HEPARIN NA (PORCINE) 5,000 UNITS/ML 1ML VIAL SQ SCH ×3 (05:08→21:33)
[2021-11-12] MEDS: GABAPENTIN 300 MG CAPSULE PO SCH ×3 (05:08→21:34)
[2021-11-12] MEDS: AMINO ACIDS/PROTEIN HYDROLYS 30 ML LIQUID.PKT PO SCH (08:53)
[2021-11-12] MEDS ORDERED: metoPROLOL SUCCINATE 25 MG TAB.SR.24H (FP) ONE ×2 (10:51→11:04)
[2021-11-12] MEDS: MULTIVITAMINS (DAILY MVI) TABLET (FP) PO SCH (10:59)
[2021-11-12] MEDS: VITAMIN B COMP W-C 1 EA TABLET (NEPHRO-VITE) PO SCH (11:00)
[2021-11-12] MEDS: PANTOPRAZOLE 40 MG TABLET PO SCH (11:00)
[2021-11-12] MEDS: DOXYCYCLINE HYCLATE 100 MG CAPSULE PO SCH (11:00)
[2021-11-12] MEDS: FAMOTIDINE 20 MG TABLET PO SCH (11:00)
[2021-11-12] MEDS: METOPROLOL SUCCINATE 100 MG, METOPROLOL SUCCINATE 25 MG PO SCH (11:06)
[2021-11-12] MEDS: TORSEMIDE 100 MG TABLET PO SCH (11:08)
[2021-11-12] MEDS: MINERAL OIL/PET HY-PHL TOPICAL OINTMENT 454 GM JAR TP SCH (17:58)
[2021-11-12] MEDS: SILVER SULFADIAZINE 1% TOP CREAM 50 GM JAR TP SCH (18:00)
[2021-11-12] MEDS: PHENYTOIN NA EXTENDED 100 MG CAPSULE (FP) PO SCH (21:34)
[2021-11-13] MEDS: ACETAMINOPHEN 500 MG TABLET (FP) PO PRN ×2 (04:31→22:16)
[2021-11-13] MEDS: HEPARIN NA (PORCINE) 5,000 UNITS/ML 1ML VIAL SQ SCH ×3 (05:20→22:15)
[2021-11-13] MEDS: GABAPENTIN 300 MG CAPSULE PO SCH ×3 (05:21→22:15)
[2021-11-13] MEDS: LORazepam 2 MG/ML SDV VIAL IVPUSH SCH (09:30)
[2021-11-13] MEDS ORDERED: EPOETIN ALFA-EPBX 10,000 UNIT/ML VIAL IVPUSH ONE (10:00)
[2021-11-13] MEDS ORDERED: SODIUM CHLORIDE 250 ML IV PRN (10:00)
[2021-11-13 12:24] LABS: BASO % 1.1 % (0-2.0); EOS % 7.8 % (0-4.5); HEMATOCRIT 25.1 % (32.4-45.2); HEMOGLOBIN 8.3 GM/dL (10.7-15.3); LYMPH % 13.5 % (8-40); MCH 31.4 pg (25.7-33.7); MCHC 32.9 g/dl (32.0-36.0); MEAN CELL VOLUME 95.4 fl (80-96); MEAN PLT VOLUME 7.3 fl (7.5-11.1); NEUT % 65.6 % (42.8-82.8); PLATELET COUNT 262 10^3/uL (134-434); RBC 2.63 M/mm3 (3.60-5.2); RDW 17.4 % (11.6-15.6); WHITE BLOOD COUNT 4.6 K/mm3 (4.0-10.0)
[2021-11-13 12:29] LABS: INR 1.34 (0.83-1.09); PROTHROMBIN TIME (PATIENT) 15.4 SEC (9.7-13.0)
[2021-11-13 12:32] LABS: ACTIVATED PTT 31.5 SECONDS (25.2-36.5)
[2021-11-13 12:43] LABS: CALCIUM 7.5 mg/dL (8.5-10.1)
[2021-11-13 12:44] LABS: BLOOD UREA NITROGEN 50.8 mg/dL (7-18); MAGNESIUM 2.1 mg/dL (1.8-2.4)
[2021-11-13 12:47] LABS: CREATININE 4.7 mg/dL (0.55-1.3); PHOSPHOROUS 5.8 mg/dL (2.5-4.9)
[2021-11-13] MEDS: AMINO ACIDS/PROTEIN HYDROLYS 30 ML LIQUID.PKT PO SCH (14:29)
[2021-11-13] MEDS: VITAMIN B COMP W-C 1 EA TABLET (NEPHRO-VITE) PO SCH (14:30)
[2021-11-13] MEDS: PANTOPRAZOLE 40 MG TABLET PO SCH (14:31)
[2021-11-13] MEDS: FAMOTIDINE 20 MG TABLET PO SCH (14:31)
[2021-11-13] MEDS: MULTIVITAMINS (DAILY MVI) TABLET (FP) PO SCH (14:31)
[2021-11-13] MEDS: MINERAL OIL/PET HY-PHL TOPICAL OINTMENT 454 GM JAR TP SCH (14:32)
[2021-11-13] MEDS ORDERED: metoPROLOL SUCCINATE 25 MG TAB.SR.24H (FP) ONE (14:34)
[2021-11-13] MEDS: METOPROLOL SUCCINATE 100 MG, METOPROLOL SUCCINATE 25 MG PO SCH (14:39)
[2021-11-13] MEDS ORDERED: MIDAZOLAM HCL 2 MG/2 ML SINGLE DOSE VIAL ONE ×2 (16:25)
[2021-11-13] MEDS ORDERED: LIDOCAINE HCL 1%, 10 MG/ML (20ML VIAL) NR ONE (16:44)
[2021-11-13] MEDS: TORSEMIDE 100 MG TABLET PO SCH (17:08)
[2021-11-13] MEDS: PHENYTOIN NA EXTENDED 100 MG CAPSULE (FP) PO SCH (22:15)
[2021-11-14] MEDS: HEPARIN NA (PORCINE) 5,000 UNITS/ML 1ML VIAL SQ SCH ×3 (05:27→22:00)
[2021-11-14] MEDS: GABAPENTIN 300 MG CAPSULE PO SCH ×3 (05:27→22:00)
[2021-11-14] MEDS ORDERED: metoPROLOL SUCCINATE 25 MG TAB.SR.24H (FP) ONE (09:52)
[2021-11-14] MEDS: METOPROLOL SUCCINATE 100 MG, METOPROLOL SUCCINATE 25 MG PO SCH (09:58)
[2021-11-14] MEDS: AMINO ACIDS/PROTEIN HYDROLYS 30 ML LIQUID.PKT PO SCH (09:58)
[2021-11-14] MEDS: MULTIVITAMINS (DAILY MVI) TABLET (FP) PO SCH (09:59)
[2021-11-14] MEDS: FAMOTIDINE 20 MG TABLET PO SCH (09:59)
[2021-11-14] MEDS: PANTOPRAZOLE 40 MG TABLET PO SCH (09:59)
[2021-11-14] MEDS: VITAMIN B COMP W-C 1 EA TABLET (NEPHRO-VITE) PO SCH (09:59)
[2021-11-14] MEDS: TORSEMIDE 100 MG TABLET PO SCH (10:00)
[2021-11-14] MEDS: MINERAL OIL/PET HY-PHL TOPICAL OINTMENT 454 GM JAR TP SCH (10:04)
[2021-11-14] MEDS: ACETAMINOPHEN 500 MG TABLET (FP) PO PRN ×2 (10:52→22:04)
[2021-11-14] MEDS ORDERED: VANCOMYCIN/WATER 1250 MG 1,250 MG/250 ML BAG IVPB SCH (11:45)
[2021-11-14] MEDS ORDERED: AZTREONAM 1 GM in DEXTROSE 5%-WATER - 50 ML IVPB ONE (14:15)
[2021-11-14] MEDS: PHENYTOIN NA EXTENDED 100 MG CAPSULE (FP) PO SCH (21:59)
[2021-11-15] MEDS ORDERED: AZTREONAM 1 GM in DEXTROSE 5%-WATER - 50 ML IVPB SCH (01:00)
[2021-11-15] MEDS: ACETAMINOPHEN 500 MG TABLET (FP) PO PRN ×3 (04:31→17:04)
[2021-11-15] MEDS: HEPARIN NA (PORCINE) 5,000 UNITS/ML 1ML VIAL SQ SCH ×3 (06:36→21:09)
[2021-11-15] MEDS: GABAPENTIN 300 MG CAPSULE PO SCH ×3 (06:36→21:10)
[2021-11-15] MEDS: LORazepam 2 MG/ML SDV VIAL IVPUSH SCH (08:31)
[2021-11-15] MEDS ORDERED: SODIUM CHLORIDE 250 ML IV PRN (08:36)
[2021-11-15] MEDS ORDERED: ACETAMINOPHEN 500 MG TABLET (FP) PO ONE (08:43)
[2021-11-15] MEDS ORDERED: VANCOMYCIN 1 GM in D5W (PRE-DOCKED) 1,000 MG/250 ML IVPB ONE (08:45)
[2021-11-15] MEDS ORDERED: LORazepam 2 MG/ML SDV VIAL IM SCH (10:00)
[2021-11-15] MEDS ORDERED: VANCOMYCIN 1 GM in D5W (PRE-DOCKED) 1,000 MG/250 ML IVPB SCH (10:00)
[2021-11-15] MEDS ORDERED: EPOETIN ALFA-EPBX 20,000 UNIT/ML VIAL IVPUSH ONE (10:00)
[2021-11-15] MEDS ORDERED: AZTREONAM 1 GM VIAL (RESTRICTED TO ID) IVPB SCH (11:45)
[2021-11-15 12:09] LABS: SARS-CoV-2 NAA Not Detected (Not Detected)
[2021-11-15] MEDS: AZTREONAM 1 GM in DEXTROSE 5%-WATER - 50 ML IVPB SCH (12:54)
[2021-11-15] MEDS ORDERED: metoPROLOL SUCCINATE 25 MG TAB.SR.24H (FP) ONE (13:51)
[2021-11-15] MEDS: ERGOCALCIFEROL (VIT D2) 50,000 UNIT (1.25 MG) CAPSULE PO SCH (14:05)
[2021-11-15] MEDS: TORSEMIDE 100 MG TABLET PO SCH (14:05)
[2021-11-15] MEDS: MULTIVITAMINS (DAILY MVI) TABLET (FP) PO SCH (14:06)
[2021-11-15] MEDS: FAMOTIDINE 20 MG TABLET PO SCH (14:06)
[2021-11-15] MEDS: PANTOPRAZOLE 40 MG TABLET PO SCH (14:06)
[2021-11-15] MEDS: AMINO ACIDS/PROTEIN HYDROLYS 30 ML LIQUID.PKT PO SCH (14:06)
[2021-11-15] MEDS: METOPROLOL SUCCINATE 100 MG, METOPROLOL SUCCINATE 25 MG PO SCH (14:07)
[2021-11-15] MEDS: VITAMIN B COMP W-C 1 EA TABLET (NEPHRO-VITE) PO SCH (14:07)
[2021-11-15] MEDS: MINERAL OIL/PET HY-PHL TOPICAL OINTMENT 454 GM JAR TP SCH (14:10)
[2021-11-15] MEDS: PHENYTOIN NA EXTENDED 100 MG CAPSULE (FP) PO SCH (21:10)
[2021-11-16] MEDS: AZTREONAM 1 GM in DEXTROSE 5%-WATER - 50 ML IVPB SCH ×2 (00:30→10:28)
[2021-11-16] MEDS ORDERED: AZTREONAM 1 GM VIAL (RESTRICTED TO ID) ONE ×2 (00:55→09:29)
[2021-11-16] MEDS ORDERED: DEXTROSE 5%-WATER - 50 ML IVPB ONE ×3 (00:56→21:09)
[2021-11-16] MEDS: HEPARIN NA (PORCINE) 5,000 UNITS/ML 1ML VIAL SQ SCH ×3 (06:02→21:28)
[2021-11-16] MEDS: GABAPENTIN 300 MG CAPSULE PO SCH ×4 (06:02→21:29)
[2021-11-16] MEDS: ACETAMINOPHEN 500 MG TABLET (FP) PO PRN ×2 (06:28→15:24)
[2021-11-16] MEDS ORDERED: metoPROLOL SUCCINATE 25 MG TAB.SR.24H (FP) ONE (09:28)
[2021-11-16] MEDS ORDERED: AZTREONAM 1 GM in DEXTROSE 5%-WATER - 50 ML IVPB SCH (10:00)
[2021-11-16] MEDS: AMINO ACIDS/PROTEIN HYDROLYS 30 ML LIQUID.PKT PO SCH (10:20)
[2021-11-16] MEDS: MINERAL OIL/PET HY-PHL TOPICAL OINTMENT 454 GM JAR TP SCH (10:20)
[2021-11-16] MEDS: TORSEMIDE 100 MG TABLET PO SCH (10:20)
[2021-11-16] MEDS: FAMOTIDINE 20 MG TABLET PO SCH (10:23)
[2021-11-16] MEDS: MULTIVITAMINS (DAILY MVI) TABLET (FP) PO SCH (10:24)
[2021-11-16] MEDS: METOPROLOL SUCCINATE 100 MG, METOPROLOL SUCCINATE 25 MG PO SCH (10:24)
[2021-11-16] MEDS: PANTOPRAZOLE 40 MG TABLET PO SCH (10:24)
[2021-11-16] MEDS: VITAMIN B COMP W-C 1 EA TABLET (NEPHRO-VITE) PO SCH (10:25)
[2021-11-16] MEDS ORDERED: AZTREONAM 2 GM in DEXTROSE 5%-WATER - 50 ML IVPB SCH (10:30)
[2021-11-16] MEDS: AZTREONAM 2 GM in DEXTROSE 5%-WATER - 50 ML IVPB SCH ×2 (11:09→23:30)
[2021-11-16 12:10] LABS: LACTIC ACID 3.4 mmol/L (0.4-2.0)
[2021-11-16] MEDS ORDERED: SODIUM CHLORIDE 250 ML IV PRN (13:21)
[2021-11-16] MEDS: COLLAGENASE CLOSTRIDIUM HIST. 30 GRAMS TUBE TP SCH (15:26)
[2021-11-16] MEDS ORDERED: SODIUM CHLORIDE 250 ML IV STA (17:40)
[2021-11-16] MEDS ORDERED: AMIKACIN SO4 IVPB ONE (18:01)
[2021-11-16] MEDS ORDERED: SODIUM CHLORIDE IVPB ONE (18:01)
[2021-11-16] MEDS ORDERED: ACETAMINOPHEN 325 MG TABLET (FP) PO ONE (19:49)
[2021-11-16] MEDS ORDERED: SIMETHICONE 80 MG TAB.CHEW (FP) PO PRN (20:18)
[2021-11-16] MEDS ORDERED: ACETAMINOPHEN 1000 MG/100 ML BAG IVPB PRN (20:29)
[2021-11-16] MEDS ORDERED: AZTREONAM 2 GM VIAL (RESTRICTED TO ID) ONE (21:08)
[2021-11-16] MEDS: PHENYTOIN NA EXTENDED 100 MG CAPSULE (FP) PO SCH (21:28)
[2021-11-17] MEDS ORDERED: SODIUM CHLORIDE 250 ML IV STA (01:14)
[2021-11-17] MEDS ORDERED: IBUPROFEN 800 MG/8 ML IJ IVPB PRN (01:20)
[2021-11-17] MEDS ORDERED: SODIUM CHLORIDE 500 ML IV STA (02:36)
[2021-11-17] MEDS: HEPARIN NA (PORCINE) 5,000 UNITS/ML 1ML VIAL SQ SCH ×3 (06:35→21:38)
[2021-11-17] MEDS: GABAPENTIN 300 MG CAPSULE PO SCH ×3 (06:36→21:37)
[2021-11-17] MEDS ORDERED: EPOETIN ALFA-EPBX 20,000 UNIT/ML VIAL IVPUSH ONE (08:00)
[2021-11-17 09:04] LABS: HEMOGLOBIN 7.7 GM/dL (10.7-15.3); MCH 30.4 pg (25.7-33.7); MCHC 32.2 g/dl (32.0-36.0); MEAN CELL VOLUME 94.5 fl (80-96); MEAN PLT VOLUME 8.5 fl (7.5-11.1); PLATELET COUNT 155 10^3/uL (134-434); RBC 2.54 M/mm3 (3.60-5.2); RDW 18.2 % (11.6-15.6); WHITE BLOOD COUNT 4.9 K/mm3 (4.0-10.0)
[2021-11-17 09:07] LABS: CALCIUM 8.2 mg/dL (8.5-10.1)
[2021-11-17 09:08] LABS: BLOOD UREA NITROGEN 66.3 mg/dL (7-18)
[2021-11-17 09:10] LABS: CREATININE 6.8 mg/dL (0.55-1.3)
[2021-11-17 09:11] LABS: PHOSPHOROUS 6.9 mg/dL (2.5-4.9)
[2021-11-17 09:12] LABS: BILIRUBIN,TOTAL 1.3 mg/dL (0.2-1)
[2021-11-17 09:13] LABS: ALBUMIN 1.4 g/dl (3.4-5.0)
[2021-11-17] MEDS: ALBUMIN HUMAN 25% 12.5 GM/50 ML VIAL IV SCH ×4 (09:15→13:28)
[2021-11-17 09:51] LABS: ANISOCYTOSIS 1+; MACROCYTOSIS 1+
[2021-11-17] MEDS ORDERED: LOSARTAN POTASSIUM 25 MG TABLET PO SCH (10:00)
[2021-11-17] MEDS: METOPROLOL SUCCINATE 100 MG, METOPROLOL SUCCINATE 25 MG PO SCH (10:48)
[2021-11-17] MEDS ORDERED: DEXTROSE 5%-WATER - 50 ML IVPB ONE (10:52)
[2021-11-17] MEDS ORDERED: AZTREONAM 2 GM VIAL (RESTRICTED TO ID) ONE (10:52)
[2021-11-17] MEDS: AMINO ACIDS/PROTEIN HYDROLYS 30 ML LIQUID.PKT PO SCH (10:56)
[2021-11-17] MEDS: LORazepam 2 MG/ML SDV VIAL IM SCH (10:56)
[2021-11-17] MEDS: FAMOTIDINE 20 MG TABLET PO SCH (10:58)
[2021-11-17] MEDS: VITAMIN B COMP W-C 1 EA TABLET (NEPHRO-VITE) PO SCH (10:58)
[2021-11-17] MEDS: AZTREONAM 2 GM in DEXTROSE 5%-WATER - 50 ML IVPB SCH (10:58)
[2021-11-17] MEDS: PANTOPRAZOLE 40 MG TABLET PO SCH (10:58)
[2021-11-17] MEDS: MULTIVITAMINS (DAILY MVI) TABLET (FP) PO SCH (10:58)
[2021-11-17] MEDS: ACETAMINOPHEN 500 MG TABLET (FP) PO PRN (11:01)
[2021-11-17] MEDS: TORSEMIDE 100 MG TABLET PO SCH (12:08)
[2021-11-17] MEDS: COLLAGENASE CLOSTRIDIUM HIST. 30 GRAMS TUBE TP SCH (12:09)
[2021-11-17] MEDS: MINERAL OIL/PET HY-PHL TOPICAL OINTMENT 454 GM JAR TP SCH (12:10)
[2021-11-17] MEDS ORDERED: ALBUMIN HUMAN 25% 12.5 GM/50 ML VIAL IV SCH (12:30)
[2021-11-17] MEDS ORDERED: SODIUM CHLORIDE 250 ML IV PRN (13:22)
[2021-11-17] MEDS: PHENYTOIN NA EXTENDED 100 MG CAPSULE (FP) PO SCH (21:37)
[2021-11-17] MEDS: MELATONIN 5 MG TABLETS PO PRN (21:37)
[2021-11-17] MEDS: LORazepam 2 MG/ML SDV VIAL IM ONE (23:46)
[2021-11-18] MEDS: LORazepam 2 MG/ML SDV VIAL IM ONE (01:35)
[2021-11-18] MEDS: HEPARIN NA (PORCINE) 5,000 UNITS/ML 1ML VIAL SQ SCH ×3 (05:18→21:38)
[2021-11-18] MEDS: GABAPENTIN 300 MG CAPSULE PO SCH ×3 (05:18→21:38)
[2021-11-18 07:29] LABS: HEMATOCRIT 25.3 % (32.4-45.2); MCH 30.2 pg (25.7-33.7); MCHC 31.6 g/dl (32.0-36.0); MEAN CELL VOLUME 95.5 fl (80-96); MEAN PLT VOLUME 8.8 fl (7.5-11.1); PLATELET COUNT 170 10^3/uL (134-434); RBC 2.65 M/mm3 (3.60-5.2); RDW 17.9 % (11.6-15.6); WHITE BLOOD COUNT 8.7 K/mm3 (4.0-10.0)
[2021-11-18 07:52] LABS: CALCIUM 8.5 mg/dL (8.5-10.1)
[2021-11-18 07:53] LABS: BLOOD UREA NITROGEN 57.5 mg/dL (7-18)
[2021-11-18 07:56] LABS: CREATININE 5.8 mg/dL (0.55-1.3)
[2021-11-18 07:57] LABS: BILIRUBIN,TOTAL 0.8 mg/dL (0.2-1)
[2021-11-18 07:58] LABS: TOT PROT 6.1 g/dl (6.4-8.2)
[2021-11-18 08:19] LABS: ALBUMIN 1.7 g/dl (3.4-5.0)
[2021-11-18] MEDS: AMINO ACIDS/PROTEIN HYDROLYS 30 ML LIQUID.PKT PO SCH (08:48)
[2021-11-18] MEDS ORDERED: metoPROLOL SUCCINATE 25 MG TAB.SR.24H (FP) ONE (09:16)
[2021-11-18 09:32] LABS: ANISOCYTOSIS 1+; MACROCYTOSIS 1+; PLATELET ESTIMATE NORMAL; TARGET CELLS 1+
[2021-11-18] MEDS: MINERAL OIL/PET HY-PHL TOPICAL OINTMENT 454 GM JAR TP SCH (09:32)
[2021-11-18] MEDS: VITAMIN B COMP W-C 1 EA TABLET (NEPHRO-VITE) PO SCH (09:32)
[2021-11-18] MEDS: COLLAGENASE CLOSTRIDIUM HIST. 30 GRAMS TUBE TP SCH (09:33)
[2021-11-18] MEDS: TORSEMIDE 100 MG TABLET PO SCH (09:33)
[2021-11-18] MEDS: MULTIVITAMINS (DAILY MVI) TABLET (FP) PO SCH (09:33)
[2021-11-18] MEDS: FAMOTIDINE 20 MG TABLET PO SCH (09:33)
[2021-11-18] MEDS: PANTOPRAZOLE 40 MG TABLET PO SCH (09:33)
[2021-11-18] MEDS: METOPROLOL SUCCINATE 100 MG, METOPROLOL SUCCINATE 25 MG PO SCH (09:33)
[2021-11-18] MEDS ORDERED: TIGECYCLINE 100 MG in DEXTROSE 5%-WATER - 100 ML IVPB ONE (13:00)
[2021-11-18] MEDS ORDERED: AZTREONAM 2 GM VIAL (RESTRICTED TO ID) ONE (13:02)
[2021-11-18] MEDS ORDERED: DEXTROSE 5%-WATER 100 ML IVPB ONE (13:03)
[2021-11-18] MEDS ORDERED: AZTREONAM 2 GM in DEXTROSE 5%-WATER 100 ML IVPB SCH (14:00)
[2021-11-18] MEDS ORDERED: SODIUM CHLORIDE IVPB ONE (14:00)
[2021-11-18] MEDS ORDERED: AMIKACIN SO4 IVPB ONE (14:00)
[2021-11-18] MEDS ORDERED: LORazepam 2 MG/ML SDV VIAL IVPUSH ONE ×2 (16:43→18:45)
[2021-11-18] MEDS: PHENYTOIN NA EXTENDED 100 MG CAPSULE (FP) PO SCH (21:38)
[2021-11-18] MEDS: MELATONIN 5 MG TABLETS PO PRN (21:38)
[2021-11-19] MEDS: TIGECYCLINE 50 MG in DEXTROSE 5%-WATER - 100 ML IVPB SCH ×2 (02:00→12:30)
[2021-11-19] MEDS: GABAPENTIN 300 MG CAPSULE PO SCH ×3 (05:51→21:33)
[2021-11-19] MEDS: HEPARIN NA (PORCINE) 5,000 UNITS/ML 1ML VIAL SQ SCH ×3 (05:51→21:33)
[2021-11-19] MEDS: AMINO ACIDS/PROTEIN HYDROLYS 30 ML LIQUID.PKT PO SCH (07:47)
[2021-11-19] MEDS ORDERED: metoPROLOL SUCCINATE 25 MG TAB.SR.24H (FP) ONE (09:53)
[2021-11-19] MEDS: FAMOTIDINE 20 MG TABLET PO SCH (09:56)
[2021-11-19] MEDS: TORSEMIDE 100 MG TABLET PO SCH (09:56)
[2021-11-19] MEDS: MULTIVITAMINS (DAILY MVI) TABLET (FP) PO SCH (09:56)
[2021-11-19] MEDS: VITAMIN B COMP W-C 1 EA TABLET (NEPHRO-VITE) PO SCH (09:56)
[2021-11-19] MEDS: MINERAL OIL/PET HY-PHL TOPICAL OINTMENT 454 GM JAR TP SCH (09:56)
[2021-11-19] MEDS: COLLAGENASE CLOSTRIDIUM HIST. 30 GRAMS TUBE TP SCH (09:56)
[2021-11-19] MEDS: PANTOPRAZOLE 40 MG TABLET PO SCH (09:56)
[2021-11-19] MEDS: METOPROLOL SUCCINATE 100 MG, METOPROLOL SUCCINATE 25 MG PO SCH (09:57)
[2021-11-19] MEDS ORDERED: TIGECYCLINE 50 MG in DEXTROSE 5%-WATER - 100 ML IVPB SCH (10:00)
[2021-11-19] MEDS: LORazepam 2 MG/ML SDV VIAL IM SCH (11:48)
[2021-11-19] MEDS ORDERED: SODIUM CHLORIDE 250 ML IV PRN ×2 (14:00→14:12)
[2021-11-19 16:23] LABS: BASO % 0.4 % (0-2.0); EOS % 1.9 % (0-4.5); HEMATOCRIT 26.2 % (32.4-45.2); HEMOGLOBIN 8.3 GM/dL (10.7-15.3); LYMPH % 1.8 % (8-40); MCH 29.6 pg (25.7-33.7); MCHC 31.8 g/dl (32.0-36.0); MEAN CELL VOLUME 92.9 fl (80-96); MEAN PLT VOLUME 8.3 fl (7.5-11.1); MONO % 3.8 % (3.8-10.2); NEUT % 92.1 % (42.8-82.8); PLATELET COUNT 204 10^3/uL (134-434); RBC 2.82 M/mm3 (3.60-5.2); RDW 18.6 % (11.6-15.6); WHITE BLOOD COUNT 19.5 K/mm3 (4.0-10.0)
[2021-11-19 16:31] LABS: CALCIUM 7.9 mg/dL (8.5-10.1)
[2021-11-19 16:32] LABS: ALBUMIN 1.5 g/dl (3.4-5.0); BLOOD UREA NITROGEN 70.3 mg/dL (7-18); MAGNESIUM 2.1 mg/dL (1.8-2.4)
[2021-11-19 16:35] LABS: CREATININE 6.4 mg/dL (0.55-1.3); PHOSPHOROUS 6.1 mg/dL (2.5-4.9); TOT PROT 6.2 g/dl (6.4-8.2)
[2021-11-19 16:37] LABS: BILIRUBIN,TOTAL 0.7 mg/dL (0.2-1)
[2021-11-19 17:30] LABS: ANISOCYTOSIS 1+; MACROCYTOSIS 0; OVALOCYTE 1+
[2021-11-19] MEDS ORDERED: VANCOMYCIN/WATER FOR INJ (PEG) 1,000 MG/200 ML BAG IVPB ONE (19:20)
[2021-11-19] MEDS: PHENYTOIN NA EXTENDED 100 MG CAPSULE (FP) PO SCH (21:32)
[2021-11-19] MEDS: MELATONIN 5 MG TABLETS PO PRN (21:33)
[2021-11-20] MEDS: TIGECYCLINE 50 MG in DEXTROSE 5%-WATER - 100 ML IVPB SCH ×2 (00:36→10:40)
[2021-11-20] MEDS: GABAPENTIN 300 MG CAPSULE PO SCH ×3 (05:41→21:19)
[2021-11-20] MEDS: HEPARIN NA (PORCINE) 5,000 UNITS/ML 1ML VIAL SQ SCH ×3 (05:41→21:19)
[2021-11-20] MEDS ORDERED: EPOETIN ALFA-EPBX 10,000 UNIT/ML VIAL IVPUSH ONE (07:00)
[2021-11-20] MEDS ORDERED: LORazepam 2 MG/ML SDV VIAL IM ONE (07:04)
[2021-11-20] MEDS: AMINO ACIDS/PROTEIN HYDROLYS 30 ML LIQUID.PKT PO SCH (07:54)
[2021-11-20 09:13] LABS: HEMATOCRIT 25.1 % (32.4-45.2); MCH 29.5 pg (25.7-33.7); MCHC 31.7 g/dl (32.0-36.0); MEAN PLT VOLUME 8.7 fl (7.5-11.1); PLATELET COUNT 203 10^3/uL (134-434); RDW 18.9 % (11.6-15.6); WHITE BLOOD COUNT 21.4 K/mm3 (4.0-10.0)
[2021-11-20 09:43] LABS: BLOOD UREA NITROGEN 74.4 mg/dL (7-18); CALCIUM 7.9 mg/dL (8.5-10.1); MAGNESIUM 2.1 mg/dL (1.8-2.4)
[2021-11-20 09:47] LABS: CREATININE 6.8 mg/dL (0.55-1.3); PHOSPHOROUS 6.5 mg/dL (2.5-4.9)
[2021-11-20] MEDS: PANTOPRAZOLE 40 MG TABLET PO SCH (10:38)
[2021-11-20] MEDS: VITAMIN B COMP W-C 1 EA TABLET (NEPHRO-VITE) PO SCH (10:38)
[2021-11-20] MEDS: FAMOTIDINE 20 MG TABLET PO SCH (10:38)
[2021-11-20] MEDS: MINERAL OIL/PET HY-PHL TOPICAL OINTMENT 454 GM JAR TP SCH (10:38)
[2021-11-20] MEDS: MULTIVITAMINS (DAILY MVI) TABLET (FP) PO SCH (10:39)
[2021-11-20 11:25] LABS: ANISOCYTOSIS 1+; MACROCYTOSIS 1+
[2021-11-20] MEDS: COLLAGENASE CLOSTRIDIUM HIST. 30 GRAMS TUBE TP SCH (12:39)
[2021-11-20] MEDS: METOPROLOL SUCCINATE 100 MG, METOPROLOL SUCCINATE 25 MG PO SCH (12:44)
[2021-11-20] MEDS ORDERED: VANCOMYCIN/WATER FOR INJ (PEG) 1,000 MG/200 ML BAG IVPB ONE (20:30)
[2021-11-20] MEDS: PHENYTOIN NA EXTENDED 100 MG CAPSULE (FP) PO SCH (21:18)
[2021-11-21] MEDS: TIGECYCLINE 50 MG in DEXTROSE 5%-WATER - 100 ML IVPB SCH ×2 (01:06→13:38)
[2021-11-21] MEDS: GABAPENTIN 300 MG CAPSULE PO SCH ×3 (05:17→22:57)
[2021-11-21] MEDS ORDERED: metoPROLOL SUCCINATE 25 MG TAB.SR.24H (FP) ONE (09:40)
[2021-11-21] MEDS: LORazepam 2 MG/ML SDV VIAL IM SCH (10:01)
[2021-11-21] MEDS: AMINO ACIDS/PROTEIN HYDROLYS 30 ML LIQUID.PKT PO SCH (10:03)
[2021-11-21] MEDS: MINERAL OIL/PET HY-PHL TOPICAL OINTMENT 454 GM JAR TP SCH (10:03)
[2021-11-21] MEDS: VITAMIN B COMP W-C 1 EA TABLET (NEPHRO-VITE) PO SCH (10:04)
[2021-11-21] MEDS: PANTOPRAZOLE 40 MG TABLET PO SCH (10:04)
[2021-11-21] MEDS: COLLAGENASE CLOSTRIDIUM HIST. 30 GRAMS TUBE TP SCH (10:04)
[2021-11-21] MEDS: METOPROLOL SUCCINATE 100 MG, METOPROLOL SUCCINATE 25 MG PO SCH (10:04)
[2021-11-21] MEDS: FAMOTIDINE 20 MG TABLET PO SCH (10:04)
[2021-11-21] MEDS: ACETAMINOPHEN 500 MG TABLET (FP) PO PRN (10:05)
[2021-11-21] MEDS: MULTIVITAMINS (DAILY MVI) TABLET (FP) PO SCH (10:58)
[2021-11-21] MEDS ORDERED: oxyCODONE HCL 5 MG TABLET PO ONE (11:10)
[2021-11-21] MEDS ORDERED: SODIUM CHLORIDE 250 ML IV PRN (13:07)
[2021-11-21 15:50] LABS: HEMOGLOBIN 8.6 GM/dL (10.7-15.3); MCH 29.3 pg (25.7-33.7); MCHC 31.8 g/dl (32.0-36.0); MEAN CELL VOLUME 92.1 fl (80-96); MEAN PLT VOLUME 8.3 fl (7.5-11.1); PLATELET COUNT 214 10^3/uL (134-434); RBC 2.93 M/mm3 (3.60-5.2); RDW 19.5 % (11.6-15.6); WHITE BLOOD COUNT 18.2 K/mm3 (4.0-10.0)
[2021-11-21 16:00] LABS: ALBUMIN 1.4 g/dl (3.4-5.0); BLOOD UREA NITROGEN 76.4 mg/dL (7-18); CALCIUM 7.9 mg/dL (8.5-10.1); MAGNESIUM 2.2 mg/dL (1.8-2.4)
[2021-11-21 16:03] LABS: CREATININE 5.9 mg/dL (0.55-1.3); PHOSPHOROUS 6.8 mg/dL (2.5-4.9)
[2021-11-21 16:05] LABS: TOT PROT 6.2 g/dl (6.4-8.2)
[2021-11-21 16:10] LABS: BILIRUBIN,TOTAL 0.6 mg/dL (0.2-1)
[2021-11-21 16:59] LABS: ERYTHROCYTE SEDIMENTATION RATE > 140 mm/hr (0-30)
[2021-11-21 17:03] LABS: ANISOCYTOSIS 0; MACROCYTOSIS 0; TARGET CELLS 1+
[2021-11-21] MEDS ORDERED: SODIUM CHLORIDE IVPB ONE (19:30)
[2021-11-21] MEDS ORDERED: AMIKACIN SO4 IVPB ONE (19:30)
[2021-11-21] MEDS: PHENYTOIN NA EXTENDED 100 MG CAPSULE (FP) PO SCH (22:56)
[2021-11-22] MEDS: TIGECYCLINE 50 MG in DEXTROSE 5%-WATER - 100 ML IVPB SCH ×2 (01:17→13:16)
[2021-11-22] MEDS: GABAPENTIN 300 MG CAPSULE PO SCH ×3 (06:44→21:23)
[2021-11-22] MEDS ORDERED: metoPROLOL SUCCINATE 25 MG TAB.SR.24H (FP) ONE (07:40)
[2021-11-22] MEDS ORDERED: EPOETIN ALFA-EPBX 10,000 UNIT/ML VIAL IVPUSH ONE (08:00)
[2021-11-22] MEDS: AMINO ACIDS/PROTEIN HYDROLYS 30 ML LIQUID.PKT PO SCH (08:10)
[2021-11-22] MEDS ORDERED: LORazepam 2 MG/ML SDV VIAL IVPUSH ONE (08:41)
[2021-11-22 09:08] LABS: HEMOGLOBIN 8.6 GM/dL (10.7-15.3); MCH 29.3 pg (25.7-33.7); MCHC 31.8 g/dl (32.0-36.0); MEAN PLT VOLUME 8.6 fl (7.5-11.1); PLATELET COUNT 245 10^3/uL (134-434); RBC 2.93 M/mm3 (3.60-5.2); RDW 18.8 % (11.6-15.6); WHITE BLOOD COUNT 17.9 K/mm3 (4.0-10.0)
[2021-11-22 09:37] LABS: MAGNESIUM 2.1 mg/dL (1.8-2.4)
[2021-11-22 09:40] LABS: CREATININE 6.3 mg/dL (0.55-1.3)
[2021-11-22] MEDS: MINERAL OIL/PET HY-PHL TOPICAL OINTMENT 454 GM JAR TP SCH (09:49)
[2021-11-22] MEDS: COLLAGENASE CLOSTRIDIUM HIST. 30 GRAMS TUBE TP SCH (09:53)
[2021-11-22] MEDS ORDERED: ERGOCALCIFEROL (VIT D2) 50,000 UNIT (1.25 MG) CAPSULE PO SCH (10:00)
[2021-11-22 11:20] LABS: ANISOCYTOSIS 2+; MACROCYTOSIS 2+; TOXIC GRANULATION 2+
[2021-11-22] MEDS: METOPROLOL SUCCINATE 100 MG, METOPROLOL SUCCINATE 25 MG PO SCH (12:00)
[2021-11-22] MEDS: FAMOTIDINE 20 MG TABLET PO SCH (12:00)
[2021-11-22] MEDS: MULTIVITAMINS (DAILY MVI) TABLET (FP) PO SCH (12:00)
[2021-11-22] MEDS: PANTOPRAZOLE 40 MG TABLET PO SCH (12:00)
[2021-11-22] MEDS: VITAMIN B COMP W-C 1 EA TABLET (NEPHRO-VITE) PO SCH (12:00)
[2021-11-22] MEDS: ACETAMINOPHEN 500 MG TABLET (FP) PO PRN (13:17)
[2021-11-22] MEDS ORDERED: oxyCODONE HCL 5 MG TABLET PO ONE (17:17)
[2021-11-22] MEDS ORDERED: SODIUM CHLORIDE 250 ML IV STA (17:24)
[2021-11-22] MEDS: PHENYTOIN NA EXTENDED 100 MG CAPSULE (FP) PO SCH (21:23)
[2021-11-22] MEDS: HEPARIN NA (PORCINE) 5,000 UNITS/ML 1ML VIAL SQ SCH (21:23)
[2021-11-23] MEDS: TIGECYCLINE 50 MG in DEXTROSE 5%-WATER - 100 ML IVPB SCH ×2 (00:13→13:00)
[2021-11-23] MEDS: GABAPENTIN 300 MG CAPSULE PO SCH ×3 (05:56→21:23)
[2021-11-23] MEDS: HEPARIN NA (PORCINE) 5,000 UNITS/ML 1ML VIAL SQ SCH ×3 (05:56→21:23)
[2021-11-23] MEDS: AMINO ACIDS/PROTEIN HYDROLYS 30 ML LIQUID.PKT PO SCH (08:24)
[2021-11-23] MEDS: MINERAL OIL/PET HY-PHL TOPICAL OINTMENT 454 GM JAR TP SCH (10:24)
[2021-11-23] MEDS: PANTOPRAZOLE 40 MG TABLET PO SCH (10:25)
[2021-11-23] MEDS: LORazepam 2 MG/ML SDV VIAL IM SCH (10:25)
[2021-11-23] MEDS: FAMOTIDINE 20 MG TABLET PO SCH (10:25)
[2021-11-23] MEDS: VITAMIN B COMP W-C 1 EA TABLET (NEPHRO-VITE) PO SCH (10:25)
[2021-11-23] MEDS: COLLAGENASE CLOSTRIDIUM HIST. 30 GRAMS TUBE TP SCH (10:26)
[2021-11-23] MEDS: MULTIVITAMINS (DAILY MVI) TABLET (FP) PO SCH (10:26)
[2021-11-23] MEDS: METOPROLOL SUCCINATE 100 MG, METOPROLOL SUCCINATE 25 MG PO SCH (10:35)
[2021-11-23] MEDS ORDERED: SODIUM CHLORIDE 250 ML IV PRN (13:37)
[2021-11-23 18:20] LABS: BASO % 0.4 % (0-2.0); EOS % 2.1 % (0-4.5); HEMATOCRIT 26.7 % (32.4-45.2); HEMOGLOBIN 8.6 GM/dL (10.7-15.3); LYMPH % 4.2 % (8-40); MCH 29.7 pg (25.7-33.7); MCHC 32.4 g/dl (32.0-36.0); MEAN CELL VOLUME 91.7 fl (80-96); MEAN PLT VOLUME 8.2 fl (7.5-11.1); MONO % 5.1 % (3.8-10.2); NEUT % 88.2 % (42.8-82.8); PLATELET COUNT 243 10^3/uL (134-434); RBC 2.91 M/mm3 (3.60-5.2); RDW 19.2 % (11.6-15.6); WHITE BLOOD COUNT 18.6 K/mm3 (4.0-10.0)
[2021-11-23 18:42] LABS: CALCIUM 7.7 mg/dL (8.5-10.1)
[2021-11-23 18:43] LABS: BLOOD UREA NITROGEN 86.7 mg/dL (7-18); MAGNESIUM 2.2 mg/dL (1.8-2.4)
[2021-11-23 18:46] LABS: CREATININE 5.9 mg/dL (0.55-1.3)
[2021-11-23] MEDS: PHENYTOIN NA EXTENDED 100 MG CAPSULE (FP) PO SCH (21:23)
[2021-11-24] MEDS: TIGECYCLINE 50 MG in DEXTROSE 5%-WATER - 100 ML IVPB SCH ×2 (01:30→13:45)
[2021-11-24] MEDS: GABAPENTIN 300 MG CAPSULE PO SCH ×3 (05:05→21:54)
[2021-11-24] MEDS: HEPARIN NA (PORCINE) 5,000 UNITS/ML 1ML VIAL SQ SCH ×3 (05:05→21:54)
[2021-11-24] MEDS ORDERED: EPOETIN ALFA-EPBX 10,000 UNIT/ML VIAL IVPUSH ONE (08:15)
[2021-11-24 08:37] LABS: HEMATOCRIT 28.1 % (32.4-45.2); HEMOGLOBIN 8.8 GM/dL (10.7-15.3); MCH 28.9 pg (25.7-33.7); MCHC 31.4 g/dl (32.0-36.0); MEAN CELL VOLUME 91.9 fl (80-96); MEAN PLT VOLUME 8.7 fl (7.5-11.1); PLATELET COUNT 266 10^3/uL (134-434); RBC 3.06 M/mm3 (3.60-5.2); RDW 19.4 % (11.6-15.6); WHITE BLOOD COUNT 16.9 K/mm3 (4.0-10.0)
[2021-11-24 08:50] LABS: CALCIUM 7.6 mg/dL (8.5-10.1)
[2021-11-24 08:51] LABS: BLOOD UREA NITROGEN 94.6 mg/dL (7-18); MAGNESIUM 2.2 mg/dL (1.8-2.4)
[2021-11-24 08:54] LABS: CREATININE 6.2 mg/dL (0.55-1.3); PHOSPHOROUS 8.4 mg/dL (2.5-4.9)
[2021-11-24] MEDS: PANTOPRAZOLE 40 MG TABLET PO SCH (10:24)
[2021-11-24] MEDS: AMINO ACIDS/PROTEIN HYDROLYS 30 ML LIQUID.PKT PO SCH (10:24)
[2021-11-24] MEDS: VITAMIN B COMP W-C 1 EA TABLET (NEPHRO-VITE) PO SCH (10:24)
[2021-11-24] MEDS: FAMOTIDINE 20 MG TABLET PO SCH (10:24)
[2021-11-24] MEDS: MINERAL OIL/PET HY-PHL TOPICAL OINTMENT 454 GM JAR TP SCH (10:24)
[2021-11-24] MEDS: MULTIVITAMINS (DAILY MVI) TABLET (FP) PO SCH (10:24)
[2021-11-24] MEDS: COLLAGENASE CLOSTRIDIUM HIST. 30 GRAMS TUBE TP SCH (10:24)
[2021-11-24] MEDS ORDERED: VANCOMYCIN/WATER FOR INJ (PEG) 1,000 MG/200 ML BAG IVPB ONE (10:30)
[2021-11-24 11:29] LABS: ANISOCYTOSIS 2+; MACROCYTOSIS 0
[2021-11-24] MEDS ORDERED: metoPROLOL SUCCINATE 25 MG TAB.SR.24H (FP) ONE (13:00)
[2021-11-24] MEDS: METOPROLOL SUCCINATE 100 MG, METOPROLOL SUCCINATE 25 MG PO SCH (13:07)
[2021-11-24] MEDS ORDERED: AMIKACIN SO4 IVPB ONE (14:00)
[2021-11-24] MEDS ORDERED: SODIUM CHLORIDE IVPB ONE (14:00)
[2021-11-24] MEDS: ACETAMINOPHEN 500 MG TABLET (FP) PO PRN (15:03)
[2021-11-24] MEDS: PHENYTOIN NA EXTENDED 100 MG CAPSULE (FP) PO SCH (21:54)
[2021-11-25] MEDS: TIGECYCLINE 50 MG in DEXTROSE 5%-WATER - 100 ML IVPB SCH ×2 (01:19→13:09)
[2021-11-25] MEDS: HEPARIN NA (PORCINE) 5,000 UNITS/ML 1ML VIAL SQ SCH ×3 (05:59→22:23)
[2021-11-25] MEDS: GABAPENTIN 300 MG CAPSULE PO SCH ×3 (06:00→22:23)
[2021-11-25 06:47] LABS: CHLORIDE 97 mmol/L (98-107); SODIUM 134 mmol/L (136-145)
[2021-11-25 06:53] LABS: ANION GAP 10 MMOL/L (8-16); CALCIUM 7.5 mg/dL (8.5-10.1); CO2 27 mmol/L (21-32); GLUCOSE,RANDOM 112 mg/dL (74-106); MAGNESIUM 2.1 mg/dL (1.8-2.4)
[2021-11-25 06:54] LABS: ALBUMIN 1.4 g/dl (3.4-5.0)
[2021-11-25 06:56] LABS: SGOT/AST 16 U/L (15-37); SGPT/ALT < 6 U/L (13-61)
[2021-11-25 06:57] LABS: CREATININE 4.9 mg/dL (0.55-1.3)
[2021-11-25 06:58] LABS: BILIRUBIN,TOTAL 0.5 mg/dL (0.2-1); TOT PROT 6.3 g/dl (6.4-8.2)
[2021-11-25 06:59] LABS: ALK PHOS 433 U/L (45-117)
[2021-11-25 07:24] LABS: BLOOD UREA NITROGEN 67.4 mg/dL (7-18)
[2021-11-25] MEDS ORDERED: metoPROLOL SUCCINATE 25 MG TAB.SR.24H (FP) ONE (10:01)
[2021-11-25] MEDS: LORazepam 2 MG/ML SDV VIAL IM SCH (10:02)
[2021-11-25] MEDS: MINERAL OIL/PET HY-PHL TOPICAL OINTMENT 454 GM JAR TP SCH (10:02)
[2021-11-25] MEDS: AMINO ACIDS/PROTEIN HYDROLYS 30 ML LIQUID.PKT PO SCH (10:02)
[2021-11-25] MEDS: PANTOPRAZOLE 40 MG TABLET PO SCH (10:03)
[2021-11-25] MEDS: MULTIVITAMINS (DAILY MVI) TABLET (FP) PO SCH (10:03)
[2021-11-25] MEDS: FAMOTIDINE 20 MG TABLET PO SCH (10:03)
[2021-11-25] MEDS: VITAMIN B COMP W-C 1 EA TABLET (NEPHRO-VITE) PO SCH (10:03)
[2021-11-25] MEDS: METOPROLOL SUCCINATE 100 MG, METOPROLOL SUCCINATE 25 MG PO SCH (10:03)
[2021-11-25] MEDS: COLLAGENASE CLOSTRIDIUM HIST. 30 GRAMS TUBE TP SCH (10:03)
[2021-11-25 14:28] LABS: BASO % 0.6 % (0-2.0); EOS % 1.6 % (0-4.5); HEMATOCRIT 28.1 % (32.4-45.2); HEMOGLOBIN 8.8 GM/dL (10.7-15.3); LYMPH % 4.8 % (8-40); MCH 28.9 pg (25.7-33.7); MCHC 31.1 g/dl (32.0-36.0); MEAN CELL VOLUME 92.7 fl (80-96); MEAN PLT VOLUME 8.9 fl (7.5-11.1); MONO % 5.1 % (3.8-10.2); NEUT % 87.9 % (42.8-82.8); PLATELET COUNT 258 10^3/uL (134-434); RBC 3.03 M/mm3 (3.60-5.2); RDW 19.2 % (11.6-15.6); WHITE BLOOD COUNT 19.4 K/mm3 (4.0-10.0)
[2021-11-25 15:00] LABS: ANISOCYTOSIS 2+; MACROCYTOSIS 2+
[2021-11-25] MEDS ORDERED: LORazepam 2 MG/ML SDV VIAL IM ONE ×2 (20:05→20:28)
[2021-11-25] MEDS: PHENYTOIN NA EXTENDED 100 MG CAPSULE (FP) PO SCH (22:23)
[2021-11-26] MEDS: TIGECYCLINE 50 MG in DEXTROSE 5%-WATER - 100 ML IVPB SCH ×2 (02:13→13:11)
[2021-11-26] MEDS: HEPARIN NA (PORCINE) 5,000 UNITS/ML 1ML VIAL SQ SCH ×4 (06:55→22:20)
[2021-11-26] MEDS: GABAPENTIN 300 MG CAPSULE PO SCH ×4 (06:55→22:20)
[2021-11-26] MEDS: AMINO ACIDS/PROTEIN HYDROLYS 30 ML LIQUID.PKT PO SCH (09:00)
[2021-11-26] MEDS ORDERED: SODIUM CHLORIDE 250 ML IV PRN (10:10)
[2021-11-26] MEDS ORDERED: EPOETIN ALFA-EPBX 10,000 UNIT/ML VIAL IVPUSH ONE (10:10)
[2021-11-26] MEDS: MINERAL OIL/PET HY-PHL TOPICAL OINTMENT 454 GM JAR TP SCH (10:24)
[2021-11-26] MEDS: VITAMIN B COMP W-C 1 EA TABLET (NEPHRO-VITE) PO SCH (10:24)
[2021-11-26] MEDS: FAMOTIDINE 20 MG TABLET PO SCH (10:24)
[2021-11-26] MEDS: METOPROLOL SUCCINATE 100 MG, METOPROLOL SUCCINATE 25 MG PO SCH (10:25)
[2021-11-26] MEDS: PANTOPRAZOLE 40 MG TABLET PO SCH (10:25)
[2021-11-26] MEDS: MULTIVITAMINS (DAILY MVI) TABLET (FP) PO SCH (10:25)
[2021-11-26] MEDS: COLLAGENASE CLOSTRIDIUM HIST. 30 GRAMS TUBE TP SCH (10:43)
[2021-11-26] MEDS ORDERED: HALOPERIDOL 2 MG TABLET PO PRN (12:52)
[2021-11-26] MEDS ORDERED: metoPROLOL SUCCINATE 25 MG TAB.SR.24H (FP) ONE (13:03)
[2021-11-26] MEDS ORDERED: HALOPERIDOL 1 MG TABLET PO PRN (13:55)
[2021-11-26] MEDS ORDERED: HALOPERIDOL LACTATE 5 MG/ML IM ONE (16:56)
[2021-11-26] MEDS: MELATONIN 5 MG TABLETS PO PRN (21:09)
[2021-11-26] MEDS: PHENYTOIN NA EXTENDED 100 MG CAPSULE (FP) PO SCH ×2 (21:09→22:20)
[2021-11-26] MEDS ORDERED: SIMETHICONE 80 MG TAB.CHEW (FP) PO PRN (21:41)
[2021-11-27] MEDS: TIGECYCLINE 50 MG in DEXTROSE 5%-WATER - 100 ML IVPB SCH ×2 (01:14→15:41)
[2021-11-27] MEDS: GABAPENTIN 300 MG CAPSULE PO SCH ×3 (06:11→22:00)
[2021-11-27] MEDS: HEPARIN NA (PORCINE) 5,000 UNITS/ML 1ML VIAL SQ SCH ×3 (06:12→22:00)
[2021-11-27] MEDS: AMINO ACIDS/PROTEIN HYDROLYS 30 ML LIQUID.PKT PO SCH (08:23)
[2021-11-27] MEDS: LORazepam 2 MG/ML SDV VIAL IM SCH (09:01)
[2021-11-27] MEDS ORDERED: EPOETIN ALFA-EPBX 10,000 UNIT/ML VIAL IVPUSH ONE (10:00)
[2021-11-27] MEDS ORDERED: SODIUM CHLORIDE 250 ML IV PRN (10:00)
[2021-11-27] MEDS: HALOPERIDOL 2 MG TABLET PO SCH ×2 (10:37→22:01)
[2021-11-27] MEDS ORDERED: LORazepam 2 MG/ML SDV VIAL IVPUSH ONE (11:00)
[2021-11-27 11:29] LABS: HEMATOCRIT 26.9 % (32.4-45.2); HEMOGLOBIN 8.7 GM/dL (10.7-15.3); MCH 29.3 pg (25.7-33.7); MCHC 32.2 g/dl (32.0-36.0); MEAN PLT VOLUME 8.6 fl (7.5-11.1); PLATELET COUNT 292 10^3/uL (134-434); RBC 2.95 M/mm3 (3.60-5.2); RDW 19.5 % (11.6-15.6)
[2021-11-27 12:16] LABS: ANISOCYTOSIS 1+; MACROCYTOSIS 1+; OVALOCYTE 1+
[2021-11-27] MEDS ORDERED: metoPROLOL SUCCINATE 25 MG TAB.SR.24H (FP) ONE (14:13)
[2021-11-27] MEDS: MULTIVITAMINS (DAILY MVI) TABLET (FP) PO SCH (14:26)
[2021-11-27] MEDS: METOPROLOL SUCCINATE 100 MG, METOPROLOL SUCCINATE 25 MG PO SCH (14:26)
[2021-11-27] MEDS: PANTOPRAZOLE 40 MG TABLET PO SCH (14:26)
[2021-11-27] MEDS: FAMOTIDINE 10 MG TABLET PO SCH (14:27)
[2021-11-27 15:18] LABS: CALCIUM 7.9 mg/dL (8.5-10.1)
[2021-11-27 15:19] LABS: ALBUMIN 1.4 g/dl (3.4-5.0); BLOOD UREA NITROGEN 63.9 mg/dL (7-18); MAGNESIUM 2.1 mg/dL (1.8-2.4)
[2021-11-27 15:22] LABS: CREATININE 4.1 mg/dL (0.55-1.3)
[2021-11-27 15:23] LABS: BILIRUBIN,TOTAL 0.4 mg/dL (0.2-1); TOT PROT 6.4 g/dl (6.4-8.2)
[2021-11-27] MEDS: MINERAL OIL/PET HY-PHL TOPICAL OINTMENT 454 GM JAR TP SCH (16:36)
[2021-11-27] MEDS: COLLAGENASE CLOSTRIDIUM HIST. 30 GRAMS TUBE TP SCH (16:36)
[2021-11-27] MEDS: VITAMIN B COMP W-C 1 EA TABLET (NEPHRO-VITE) PO SCH (16:37)
[2021-11-27] MEDS ORDERED: VANCOMYCIN 1 GM PREMIX - 1 GM/200 ML BAG IVPB ONE (17:19)
[2021-11-27] MEDS ORDERED: AMIKACIN SO4 IVPB ONE (17:20)
[2021-11-27] MEDS ORDERED: SODIUM CHLORIDE IVPB ONE (17:20)
[2021-11-27 18:13] LABS: BASO % 0.6 % (0-2.0); EOS % 1.9 % (0-4.5); HEMATOCRIT 29.9 % (32.4-45.2); HEMOGLOBIN 9.5 GM/dL (10.7-15.3); LYMPH % 4.3 % (8-40); MCH 29.6 pg (25.7-33.7); MCHC 31.6 g/dl (32.0-36.0); MEAN CELL VOLUME 93.7 fl (80-96); MEAN PLT VOLUME 8.9 fl (7.5-11.1); MONO % 5.9 % (3.8-10.2); NEUT % 87.3 % (42.8-82.8); PLATELET COUNT 232 10^3/uL (134-434); RBC 3.19 M/mm3 (3.60-5.2); WHITE BLOOD COUNT 17.6 K/mm3 (4.0-10.0)
[2021-11-27] MEDS: PHENYTOIN NA EXTENDED 100 MG CAPSULE (FP) PO SCH (21:59)
[2021-11-28] MEDS: TIGECYCLINE 50 MG in DEXTROSE 5%-WATER - 100 ML IVPB SCH ×2 (00:51→12:59)
[2021-11-28] MEDS: GABAPENTIN 300 MG CAPSULE PO SCH ×2 (06:08→13:00)
[2021-11-28] MEDS: HEPARIN NA (PORCINE) 5,000 UNITS/ML 1ML VIAL SQ SCH ×2 (06:08→13:00)
[2021-11-28] MEDS ORDERED: LORazepam 2 MG/ML SDV VIAL IM ONE ×2 (07:56→10:30)
[2021-11-28] MEDS ORDERED: metoPROLOL SUCCINATE 25 MG TAB.SR.24H (FP) ONE (09:00)
[2021-11-28] MEDS: AMINO ACIDS/PROTEIN HYDROLYS 30 ML LIQUID.PKT PO SCH (09:12)
[2021-11-28] MEDS: MULTIVITAMINS (DAILY MVI) TABLET (FP) PO SCH (09:13)
[2021-11-28] MEDS: METOPROLOL SUCCINATE 100 MG, METOPROLOL SUCCINATE 25 MG PO SCH (09:13)
[2021-11-28] MEDS: VITAMIN B COMP W-C 1 EA TABLET (NEPHRO-VITE) PO SCH (09:14)
[2021-11-28] MEDS: HALOPERIDOL 1 MG TABLET PO SCH (09:14)
[2021-11-28] MEDS: MINERAL OIL/PET HY-PHL TOPICAL OINTMENT 454 GM JAR TP SCH (09:14)
[2021-11-28] MEDS: PANTOPRAZOLE 40 MG TABLET PO SCH (09:14)
[2021-11-28] MEDS: COLLAGENASE CLOSTRIDIUM HIST. 30 GRAMS TUBE TP SCH (09:15)
[2021-11-29] MEDS: PHENYTOIN NA EXTENDED 100 MG CAPSULE (FP) PO SCH ×2 (00:01→22:02)
[2021-11-29] MEDS: ACETAMINOPHEN 500 MG TABLET (FP) PO PRN (00:02)
[2021-11-29] MEDS: GABAPENTIN 300 MG CAPSULE PO SCH ×4 (00:07→22:02)
[2021-11-29] MEDS: HALOPERIDOL 1 MG TABLET PO SCH ×2 (00:07→09:16)
[2021-11-29] MEDS: HEPARIN NA (PORCINE) 5,000 UNITS/ML 1ML VIAL SQ SCH ×5 (00:07→22:02)
[2021-11-29] MEDS: MELATONIN 5 MG TABLETS PO PRN (00:07)
[2021-11-29] MEDS: TIGECYCLINE 50 MG in DEXTROSE 5%-WATER - 100 ML IVPB SCH ×2 (00:08→12:01)
[2021-11-29] MEDS: AMINO ACIDS/PROTEIN HYDROLYS 30 ML LIQUID.PKT PO SCH (08:37)
[2021-11-29] MEDS ORDERED: SODIUM CHLORIDE 250 ML IV PRN (09:00)
[2021-11-29] MEDS ORDERED: metoPROLOL SUCCINATE 25 MG TAB.SR.24H (FP) ONE (09:09)
[2021-11-29] MEDS: METOPROLOL SUCCINATE 100 MG, METOPROLOL SUCCINATE 25 MG PO SCH (09:14)
[2021-11-29] MEDS: VITAMIN B COMP W-C 1 EA TABLET (NEPHRO-VITE) PO SCH (09:14)
[2021-11-29] MEDS: MULTIVITAMINS (DAILY MVI) TABLET (FP) PO SCH (09:14)
[2021-11-29] MEDS: PANTOPRAZOLE 40 MG TABLET PO SCH (09:14)
[2021-11-29] MEDS: FAMOTIDINE 10 MG TABLET PO SCH (09:14)
[2021-11-29] MEDS ORDERED: EPOETIN ALFA-EPBX 10,000 UNIT/ML VIAL SQ ONE (09:15)
[2021-11-29] MEDS: MINERAL OIL/PET HY-PHL TOPICAL OINTMENT 454 GM JAR TP SCH (09:15)
[2021-11-29] MEDS: COLLAGENASE CLOSTRIDIUM HIST. 30 GRAMS TUBE TP SCH (09:16)
[2021-11-29] MEDS: ERGOCALCIFEROL (VIT D2) 50,000 UNIT (1.25 MG) CAPSULE PO SCH (09:16)
[2021-11-29 09:44] LABS: BASO % 0.7 % (0-2.0); HEMATOCRIT 27.6 % (32.4-45.2); HEMOGLOBIN 8.8 GM/dL (10.7-15.3); LYMPH % 3.5 % (8-40); MCH 29.3 pg (25.7-33.7); MCHC 31.9 g/dl (32.0-36.0); MEAN CELL VOLUME 91.9 fl (80-96); MEAN PLT VOLUME 8.9 fl (7.5-11.1); NEUT % 89.8 % (42.8-82.8); PLATELET COUNT 329 10^3/uL (134-434); RDW 20.6 % (11.6-15.6); WHITE BLOOD COUNT 19.9 K/mm3 (4.0-10.0)
[2021-11-29] MEDS: LORazepam 2 MG/ML SDV VIAL IM SCH (09:59)
[2021-11-29 10:09] LABS: ALBUMIN 1.7 g/dl (3.4-5.0); CALCIUM 7.9 mg/dL (8.5-10.1); MAGNESIUM 2.5 mg/dL (1.8-2.4)
[2021-11-29 10:14] LABS: BILIRUBIN,TOTAL 0.6 mg/dL (0.2-1)
[2021-11-29 10:20] LABS: ANISOCYTOSIS 1+; MACROCYTOSIS 1+
[2021-11-29] MEDS: LORazepam 0.5 MG TABLET PO PRN ×2 (10:25→18:11)
[2021-11-29 11:48] LABS: PHOSPHOROUS 8.4 mg/dL (2.5-4.9)
[2021-11-29 12:12] LABS: SARS-CoV-2 NAA Not Detected (Not Detected)
[2021-11-30] MEDS: HEPARIN NA (PORCINE) 5,000 UNITS/ML 1ML VIAL SQ SCH ×3 (06:00→22:18)
[2021-11-30] MEDS: GABAPENTIN 300 MG CAPSULE PO SCH ×4 (06:08→22:18)
[2021-11-30] MEDS: AMINO ACIDS/PROTEIN HYDROLYS 30 ML LIQUID.PKT PO SCH (08:52)
[2021-11-30] MEDS ORDERED: metoPROLOL SUCCINATE 25 MG TAB.SR.24H (FP) ONE (09:44)
[2021-11-30] MEDS: MINERAL OIL/PET HY-PHL TOPICAL OINTMENT 454 GM JAR TP SCH (10:17)
[2021-11-30] MEDS: MULTIVITAMINS (DAILY MVI) TABLET (FP) PO SCH (10:18)
[2021-11-30] MEDS: COLLAGENASE CLOSTRIDIUM HIST. 30 GRAMS TUBE TP SCH (10:18)
[2021-11-30] MEDS: PANTOPRAZOLE 40 MG TABLET PO SCH (10:18)
[2021-11-30] MEDS: VITAMIN B COMP W-C 1 EA TABLET (NEPHRO-VITE) PO SCH (10:19)
[2021-11-30] MEDS ORDERED: EPOETIN ALFA-EPBX 10,000 UNIT/ML VIAL IVPUSH ONE (12:45)
[2021-11-30] MEDS: METOPROLOL SUCCINATE 100 MG, METOPROLOL SUCCINATE 25 MG PO SCH (12:58)
[2021-11-30] MEDS: LORazepam 0.5 MG TABLET PO PRN (13:37)
[2021-11-30] MEDS: SACUBITRIL/VALSARTAN 24 MG-26 MG TABLET PO SCH (22:17)
[2021-11-30] MEDS: PHENYTOIN NA EXTENDED 100 MG CAPSULE (FP) PO SCH (22:18)
[2021-12-01] MEDS: GABAPENTIN 300 MG CAPSULE PO SCH ×3 (06:36→22:17)
[2021-12-01] MEDS: HEPARIN NA (PORCINE) 5,000 UNITS/ML 1ML VIAL SQ SCH ×3 (06:38→22:16)
[2021-12-01] MEDS ORDERED: LORazepam 2 MG/ML SDV VIAL IVPUSH ONE ×2 (08:37→10:22)
[2021-12-01 10:04] LABS: BASO % 0.9 % (0-2.0); EOS % 0.9 % (0-4.5); HEMATOCRIT 29.5 % (32.4-45.2); HEMOGLOBIN 9.2 GM/dL (10.7-15.3); LYMPH % 3.7 % (8-40); MCH 28.8 pg (25.7-33.7); MCHC 31.2 g/dl (32.0-36.0); MEAN CELL VOLUME 92.1 fl (80-96); MEAN PLT VOLUME 8.6 fl (7.5-11.1); MONO % 6.9 % (3.8-10.2); NEUT % 87.6 % (42.8-82.8); PLATELET COUNT 403 10^3/uL (134-434); RDW 20.3 % (11.6-15.6)
[2021-12-01 10:14] LABS: CHLORIDE 97 mmol/L (98-107); SODIUM 135 mmol/L (136-145)
[2021-12-01] MEDS ORDERED: EPOETIN ALFA-EPBX 10,000 UNIT/ML VIAL IVPUSH ONE (10:15)
[2021-12-01 10:24] LABS: ALBUMIN 1.7 g/dl (3.4-5.0); ANION GAP 16 MMOL/L (8-16); CALCIUM 7.6 mg/dL (8.5-10.1); CO2 22 mmol/L (21-32); GLUCOSE,RANDOM 114 mg/dL (74-106); MAGNESIUM 2.7 mg/dL (1.8-2.4)
[2021-12-01 10:27] LABS: SGOT/AST 16 U/L (15-37); SGPT/ALT 8 U/L (13-61)
[2021-12-01 10:29] LABS: BILIRUBIN,TOTAL 0.7 mg/dL (0.2-1)
[2021-12-01 10:30] LABS: ALK PHOS 381 U/L (45-117); TOT PROT 7.1 g/dl (6.4-8.2)
[2021-12-01 11:02] LABS: BLOOD UREA NITROGEN 106.9 mg/dL (7-18); PHOSPHOROUS 10.2 mg/dL (2.5-4.9)
[2021-12-01] MEDS ORDERED: metoPROLOL SUCCINATE 25 MG TAB.SR.24H (FP) ONE (13:09)
[2021-12-01] MEDS: MULTIVITAMINS (DAILY MVI) TABLET (FP) PO SCH (13:29)
[2021-12-01] MEDS: PANTOPRAZOLE 40 MG TABLET PO SCH (13:30)
[2021-12-01] MEDS: FAMOTIDINE 10 MG TABLET PO SCH (13:30)
[2021-12-01] MEDS: VITAMIN B COMP W-C 1 EA TABLET (NEPHRO-VITE) PO SCH (13:30)
[2021-12-01] MEDS: MINERAL OIL/PET HY-PHL TOPICAL OINTMENT 454 GM JAR TP SCH (13:31)
[2021-12-01] MEDS: COLLAGENASE CLOSTRIDIUM HIST. 30 GRAMS TUBE TP SCH (13:31)
[2021-12-01] MEDS: AMINO ACIDS/PROTEIN HYDROLYS 30 ML LIQUID.PKT PO SCH (13:31)
[2021-12-01] MEDS: SACUBITRIL/VALSARTAN 24 MG-26 MG TABLET PO SCH ×2 (18:39→22:15)
[2021-12-01] MEDS: METOPROLOL SUCCINATE 100 MG, METOPROLOL SUCCINATE 25 MG PO SCH (18:39)
[2021-12-01] MEDS: PHENYTOIN NA EXTENDED 100 MG CAPSULE (FP) PO SCH (22:17)
[2021-12-01] MEDS: ACETAMINOPHEN 500 MG TABLET (FP) PO PRN (22:18)
[2021-12-02] MEDS: GABAPENTIN 300 MG CAPSULE PO SCH ×4 (05:34→23:06)
[2021-12-02] MEDS: HEPARIN NA (PORCINE) 5,000 UNITS/ML 1ML VIAL SQ SCH ×3 (05:35→23:07)
[2021-12-02] MEDS ORDERED: metoPROLOL SUCCINATE 25 MG TAB.SR.24H (FP) ONE (10:08)
[2021-12-02] MEDS: AMINO ACIDS/PROTEIN HYDROLYS 30 ML LIQUID.PKT PO SCH (10:16)
[2021-12-02] MEDS: MULTIVITAMINS (DAILY MVI) TABLET (FP) PO SCH (10:16)
[2021-12-02] MEDS: PANTOPRAZOLE 40 MG TABLET PO SCH (10:16)
[2021-12-02] MEDS: VITAMIN B COMP W-C 1 EA TABLET (NEPHRO-VITE) PO SCH (10:16)
[2021-12-02] MEDS: METOPROLOL SUCCINATE 100 MG, METOPROLOL SUCCINATE 25 MG PO SCH (10:16)
[2021-12-02] MEDS: COLLAGENASE CLOSTRIDIUM HIST. 30 GRAMS TUBE TP SCH (10:16)
[2021-12-02] MEDS: MINERAL OIL/PET HY-PHL TOPICAL OINTMENT 454 GM JAR TP SCH (10:17)
[2021-12-02] MEDS: OLANZapine 10 MG TABLET PO SCH (14:04)
[2021-12-02] MEDS: SACUBITRIL/VALSARTAN 24 MG-26 MG TABLET PO SCH ×2 (14:04→23:06)
[2021-12-02] MEDS: PHENYTOIN NA EXTENDED 100 MG CAPSULE (FP) PO SCH (23:06)
[2021-12-02] MEDS: MELATONIN 5 MG TABLETS PO PRN (23:06)
[2021-12-02] MEDS: ACETAMINOPHEN 500 MG TABLET (FP) PO PRN (23:10)
[2021-12-03] MEDS: ACETAMINOPHEN 500 MG TABLET (FP) PO PRN (06:37)
[2021-12-03] MEDS: OLANZapine 10 MG TABLET PO SCH ×3 (06:40→12:16)
[2021-12-03] MEDS: GABAPENTIN 300 MG CAPSULE PO SCH ×4 (06:41→22:11)
[2021-12-03] MEDS: HEPARIN NA (PORCINE) 5,000 UNITS/ML 1ML VIAL SQ SCH ×3 (06:48→21:44)
[2021-12-03 11:25] LABS: BASO % 1.3 % (0-2.0); HEMATOCRIT 28.7 % (32.4-45.2); HEMOGLOBIN 9.2 GM/dL (10.7-15.3); LYMPH % 7.2 % (8-40); MCH 29.6 pg (25.7-33.7); MEAN CELL VOLUME 92.5 fl (80-96); MEAN PLT VOLUME 8.5 fl (7.5-11.1); MONO % 13.1 % (3.8-10.2); NEUT % 75.4 % (42.8-82.8); PLATELET COUNT 372 10^3/uL (134-434); RDW 21.2 % (11.6-15.6); WHITE BLOOD COUNT 7.9 K/mm3 (4.0-10.0)
[2021-12-03] MEDS: AMINO ACIDS/PROTEIN HYDROLYS 30 ML LIQUID.PKT PO SCH ×2 (11:32→12:20)
[2021-12-03] MEDS: FAMOTIDINE 10 MG TABLET PO SCH ×2 (11:32→12:20)
[2021-12-03] MEDS: PANTOPRAZOLE 40 MG TABLET PO SCH ×2 (11:32→12:20)
[2021-12-03] MEDS: VITAMIN B COMP W-C 1 EA TABLET (NEPHRO-VITE) PO SCH (11:32)
[2021-12-03] MEDS: MULTIVITAMINS (DAILY MVI) TABLET (FP) PO SCH ×2 (11:33→12:20)
[2021-12-03] MEDS: COLLAGENASE CLOSTRIDIUM HIST. 30 GRAMS TUBE TP SCH (11:33)
[2021-12-03] MEDS: MINERAL OIL/PET HY-PHL TOPICAL OINTMENT 454 GM JAR TP SCH (11:34)
[2021-12-03] MEDS: METOPROLOL SUCCINATE 100 MG, METOPROLOL SUCCINATE 25 MG PO SCH (11:35)
[2021-12-03] MEDS: SACUBITRIL/VALSARTAN 24 MG-26 MG TABLET PO SCH ×3 (11:36→22:13)
[2021-12-03 12:00] LABS: ALBUMIN 1.5 g/dl (3.4-5.0); MAGNESIUM 2.4 mg/dL (1.8-2.4)
[2021-12-03 12:04] LABS: BILIRUBIN,TOTAL 0.5 mg/dL (0.2-1); TOT PROT 6.4 g/dl (6.4-8.2)
[2021-12-03 12:31] LABS: BLOOD UREA NITROGEN 77.4 mg/dL (7-18); CALCIUM 7.1 mg/dL (8.5-10.1); PHOSPHOROUS 8.7 mg/dL (2.5-4.9)
[2021-12-03 12:58] LABS: ANISOCYTOSIS 0; MACROCYTOSIS 0; TARGET CELLS 1+
[2021-12-03] MEDS ORDERED: LORazepam 0.5 MG TABLET PO ONE (14:16)
[2021-12-03] MEDS ORDERED: LORazepam 2 MG/ML SDV VIAL IVPUSH ONE (15:08)
[2021-12-03] MEDS ORDERED: EPOETIN ALFA-EPBX 10,000 UNIT/ML VIAL IVPUSH ONE (15:15)
[2021-12-03] MEDS: PHENYTOIN NA EXTENDED 100 MG CAPSULE (FP) PO SCH ×2 (21:44→22:13)
[2021-12-03] MEDS: OLANZapine 5 MG TABLET PO SCH ×2 (21:44→22:13)
[2021-12-04] MEDS: GABAPENTIN 300 MG CAPSULE PO SCH ×3 (05:42→21:28)
[2021-12-04] MEDS: HEPARIN NA (PORCINE) 5,000 UNITS/ML 1ML VIAL SQ SCH ×3 (05:45→21:29)
[2021-12-04] MEDS ORDERED: metoPROLOL SUCCINATE 25 MG TAB.SR.24H (FP) ONE (09:59)
[2021-12-04] MEDS: METOPROLOL SUCCINATE 100 MG, METOPROLOL SUCCINATE 25 MG PO SCH (10:08)
[2021-12-04] MEDS: MULTIVITAMINS (DAILY MVI) TABLET (FP) PO SCH (10:08)
[2021-12-04] MEDS: VITAMIN B COMP W-C 1 EA TABLET (NEPHRO-VITE) PO SCH (10:10)
[2021-12-04] MEDS: PANTOPRAZOLE 40 MG TABLET PO SCH (10:11)
[2021-12-04] MEDS: AMINO ACIDS/PROTEIN HYDROLYS 30 ML LIQUID.PKT PO SCH (10:11)
[2021-12-04] MEDS: SACUBITRIL/VALSARTAN 24 MG-26 MG TABLET PO SCH ×2 (10:12→22:29)
[2021-12-04] MEDS: OLANZapine 5 MG TABLET PO SCH ×2 (10:13→21:28)
[2021-12-04] MEDS ORDERED: SODIUM CHLORIDE 250 ML IV PRN (15:46)
[2021-12-04] MEDS: MINERAL OIL/PET HY-PHL TOPICAL OINTMENT 454 GM JAR TP SCH (15:46)
[2021-12-04] MEDS: COLLAGENASE CLOSTRIDIUM HIST. 30 GRAMS TUBE TP SCH (15:46)
[2021-12-04] MEDS: PHENYTOIN NA EXTENDED 100 MG CAPSULE (FP) PO SCH (21:28)
[2021-12-05] MEDS: HEPARIN NA (PORCINE) 5,000 UNITS/ML 1ML VIAL SQ SCH ×3 (05:57→22:26)
[2021-12-05] MEDS: GABAPENTIN 300 MG CAPSULE PO SCH ×3 (05:57→22:26)
[2021-12-05] MEDS ORDERED: metoPROLOL SUCCINATE 25 MG TAB.SR.24H (FP) ONE (09:30)
[2021-12-05] MEDS: AMINO ACIDS/PROTEIN HYDROLYS 30 ML LIQUID.PKT PO SCH (10:18)
[2021-12-05] MEDS: METOPROLOL SUCCINATE 100 MG, METOPROLOL SUCCINATE 25 MG PO SCH (10:18)
[2021-12-05] MEDS: SACUBITRIL/VALSARTAN 24 MG-26 MG TABLET PO SCH ×2 (10:19→22:26)
[2021-12-05] MEDS: OLANZapine 5 MG TABLET PO SCH ×2 (10:19→22:26)
[2021-12-05] MEDS: MULTIVITAMINS (DAILY MVI) TABLET (FP) PO SCH (10:19)
[2021-12-05] MEDS: PANTOPRAZOLE 40 MG TABLET PO SCH (10:19)
[2021-12-05] MEDS: MINERAL OIL/PET HY-PHL TOPICAL OINTMENT 454 GM JAR TP SCH (10:20)
[2021-12-05] MEDS: FAMOTIDINE 10 MG TABLET PO SCH (10:20)
[2021-12-05] MEDS: VITAMIN B COMP W-C 1 EA TABLET (NEPHRO-VITE) PO SCH (10:21)
[2021-12-05] MEDS ORDERED: EPOETIN ALFA-EPBX 10,000 UNIT/ML VIAL IVPUSH ONE (11:00)
[2021-12-05] MEDS: COLLAGENASE CLOSTRIDIUM HIST. 30 GRAMS TUBE TP SCH (11:45)
[2021-12-05] MEDS ORDERED: LORazepam 1 MG TABLET PO ONE (13:20)
[2021-12-05 14:08] LABS: SARS-CoV-2 NAA Not Detected (Not Detected)
[2021-12-05] MEDS ORDERED: LORazepam 2 MG/ML SDV VIAL IVPUSH ONE (15:30)
[2021-12-05] MEDS ORDERED: LORazepam 2 MG/ML SDV VIAL IVPUSH PRN (15:38)
[2021-12-05] MEDS: PHENYTOIN NA EXTENDED 100 MG CAPSULE (FP) PO SCH (22:25)
[2021-12-06] MEDS: HEPARIN NA (PORCINE) 5,000 UNITS/ML 1ML VIAL SQ SCH ×3 (05:39→21:18)
[2021-12-06] MEDS: GABAPENTIN 300 MG CAPSULE PO SCH ×3 (05:39→21:18)
[2021-12-06] MEDS: AMINO ACIDS/PROTEIN HYDROLYS 30 ML LIQUID.PKT PO SCH (08:45)
[2021-12-06 09:06] LABS: EOS % 5.1 % (0-4.5); HEMATOCRIT 27.8 % (32.4-45.2); HEMOGLOBIN 8.7 GM/dL (10.7-15.3); LYMPH % 8.9 % (8-40); MCH 29.3 pg (25.7-33.7); MCHC 31.2 g/dl (32.0-36.0); MEAN CELL VOLUME 93.9 fl (80-96); MEAN PLT VOLUME 7.9 fl (7.5-11.1); PLATELET COUNT 300 10^3/uL (134-434); RBC 2.96 M/mm3 (3.60-5.2); WHITE BLOOD COUNT 6.4 K/mm3 (4.0-10.0)
[2021-12-06 09:10] LABS: ALBUMIN 1.6 g/dl (3.4-5.0); MAGNESIUM 2.3 mg/dL (1.8-2.4)
[2021-12-06 09:13] LABS: CREATININE 4.8 mg/dL (0.55-1.3)
[2021-12-06 09:14] LABS: BILIRUBIN,TOTAL 0.4 mg/dL (0.2-1)
[2021-12-06 09:15] LABS: TOT PROT 6.4 g/dl (6.4-8.2)
[2021-12-06 09:18] LABS: BLOOD UREA NITROGEN 51.9 mg/dL (7-18)
[2021-12-06] MEDS ORDERED: metoPROLOL SUCCINATE 25 MG TAB.SR.24H (FP) ONE (09:41)
[2021-12-06] MEDS: MULTIVITAMINS (DAILY MVI) TABLET (FP) PO SCH (09:48)
[2021-12-06] MEDS: VITAMIN B COMP W-C 1 EA TABLET (NEPHRO-VITE) PO SCH (09:49)
[2021-12-06] MEDS: METOPROLOL SUCCINATE 100 MG, METOPROLOL SUCCINATE 25 MG PO SCH (09:49)
[2021-12-06] MEDS: PANTOPRAZOLE 40 MG TABLET PO SCH (09:49)
[2021-12-06] MEDS: OLANZapine 5 MG TABLET PO SCH ×2 (09:49→21:18)
[2021-12-06] MEDS: ERGOCALCIFEROL (VIT D2) 50,000 UNIT (1.25 MG) CAPSULE PO SCH (10:08)
[2021-12-06] MEDS: COLLAGENASE CLOSTRIDIUM HIST. 30 GRAMS TUBE TP SCH (10:18)
[2021-12-06] MEDS: MINERAL OIL/PET HY-PHL TOPICAL OINTMENT 454 GM JAR TP SCH (10:19)
[2021-12-06] MEDS: SACUBITRIL/VALSARTAN 24 MG-26 MG TABLET PO SCH ×2 (11:35→21:18)
[2021-12-06] MEDS: PHENYTOIN NA EXTENDED 100 MG CAPSULE (FP) PO SCH (21:18)
[2021-12-07] MEDS: GABAPENTIN 300 MG CAPSULE PO SCH ×2 (06:22→17:38)
[2021-12-07] MEDS: HEPARIN NA (PORCINE) 5,000 UNITS/ML 1ML VIAL SQ SCH ×2 (06:22→17:38)
[2021-12-07 13:10] LABS: BASO % 0.7 % (0-2.0); EOS % 4.9 % (0-4.5); HEMATOCRIT 23.2 % (32.4-45.2); HEMOGLOBIN 7.3 GM/dL (10.7-15.3); MCH 29.2 pg (25.7-33.7); MCHC 31.3 g/dl (32.0-36.0); MEAN CELL VOLUME 93.2 fl (80-96); MEAN PLT VOLUME 8.2 fl (7.5-11.1); MONO % 14.4 % (3.8-10.2); PLATELET COUNT 255 10^3/uL (134-434); RBC 2.49 M/mm3 (3.60-5.2); RDW 21.3 % (11.6-15.6); WHITE BLOOD COUNT 6.5 K/mm3 (4.0-10.0)
[2021-12-07 13:24] LABS: CHLORIDE 105 mmol/L (98-107); SODIUM 142 mmol/L (136-145)
[2021-12-07 13:28] LABS: ALBUMIN 1.4 g/dl (3.4-5.0); ANION GAP 7 MMOL/L (8-16); BLOOD UREA NITROGEN 38.5 mg/dL (7-18); CO2 30 mmol/L (21-32); MAGNESIUM 2.1 mg/dL (1.8-2.4)
[2021-12-07 13:29] LABS: GLUCOSE,RANDOM 155 mg/dL (74-106)
[2021-12-07 13:31] LABS: CREATININE 3.6 mg/dL (0.55-1.3); PHOSPHOROUS 4.6 mg/dL (2.5-4.9); SGOT/AST 18 U/L (15-37)
[2021-12-07 13:32] LABS: BILIRUBIN,TOTAL 0.6 mg/dL (0.2-1); TOT PROT 5.6 g/dl (6.4-8.2)
[2021-12-07 13:35] LABS: ALK PHOS 272 U/L (45-117); CALCIUM 6.9 mg/dL (8.5-10.1); SGPT/ALT 11 U/L (13-61)
[2021-12-07] MEDS ORDERED: EPOETIN ALFA-EPBX 10,000 UNIT/ML VIAL IVPUSH ONE (14:00)
[2021-12-07 14:24] LABS: ANISOCYTOSIS 2+; MACROCYTOSIS 0; TEAR DROP CELLS 1+
[2021-12-07] MEDS ORDERED: POTASSIUM CHLORIDE ORAL LIQUID 20 MEQ/15 ML PO ONE ×3 (15:40→23:15)
[2021-12-07] MEDS: AMINO ACIDS/PROTEIN HYDROLYS 30 ML LIQUID.PKT PO SCH (17:30)
[2021-12-07] MEDS: SACUBITRIL/VALSARTAN 24 MG-26 MG TABLET PO SCH (17:36)
[2021-12-07] MEDS: VITAMIN B COMP W-C 1 EA TABLET (NEPHRO-VITE) PO SCH (17:36)
[2021-12-07] MEDS: FAMOTIDINE 10 MG TABLET PO SCH (17:36)
[2021-12-07] MEDS: MULTIVITAMINS (DAILY MVI) TABLET (FP) PO SCH (17:37)
[2021-12-07] MEDS: METOPROLOL SUCCINATE 100 MG, METOPROLOL SUCCINATE 25 MG PO SCH (17:37)
[2021-12-07] MEDS: OLANZapine 5 MG TABLET PO SCH (17:37)
[2021-12-07] MEDS: PANTOPRAZOLE 40 MG TABLET PO SCH (18:34)
[2021-12-07] MEDS: KCL 10 MEQ IVPB 10 MEQ/100 ML INFUS.BAG IVPB SCH (18:35)
[2021-12-07] MEDS: MINERAL OIL/PET HY-PHL TOPICAL OINTMENT 454 GM JAR TP SCH (18:39)
[2021-12-07] MEDS: COLLAGENASE CLOSTRIDIUM HIST. 30 GRAMS TUBE TP SCH (18:40)
[2021-12-07] MEDS ORDERED: LORazepam 2 MG/ML SDV VIAL IVPUSH ONE (23:52)
[2021-12-08] MEDS ORDERED: LORazepam 2 MG/ML SDV VIAL IM ONE (00:17)
[2021-12-08] MEDS: PHENYTOIN NA EXTENDED 100 MG CAPSULE (FP) PO SCH ×2 (00:30→21:32)
[2021-12-08] MEDS: SACUBITRIL/VALSARTAN 24 MG-26 MG TABLET PO SCH ×3 (00:30→21:31)
[2021-12-08] MEDS: GABAPENTIN 300 MG CAPSULE PO SCH ×4 (00:30→21:33)
[2021-12-08] MEDS: OLANZapine 5 MG TABLET PO SCH ×4 (00:30→21:33)
[2021-12-08] MEDS: HEPARIN NA (PORCINE) 5,000 UNITS/ML 1ML VIAL SQ SCH ×4 (00:30→21:32)
[2021-12-08] MEDS ORDERED: metoPROLOL SUCCINATE 25 MG TAB.SR.24H (FP) ONE (09:22)
[2021-12-08] MEDS: METOPROLOL SUCCINATE 100 MG, METOPROLOL SUCCINATE 25 MG PO SCH ×2 (09:27→13:35)
[2021-12-08] MEDS: AMINO ACIDS/PROTEIN HYDROLYS 30 ML LIQUID.PKT PO SCH (09:27)
[2021-12-08] MEDS: VITAMIN B COMP W-C 1 EA TABLET (NEPHRO-VITE) PO SCH (10:05)
[2021-12-08] MEDS: MULTIVITAMINS (DAILY MVI) TABLET (FP) PO SCH (10:05)
[2021-12-08] MEDS: PANTOPRAZOLE 40 MG TABLET PO SCH (10:05)
[2021-12-08 13:53] LABS: HEMATOCRIT 28.4 % (32.4-45.2); HEMOGLOBIN 8.9 GM/dL (10.7-15.3); MCH 29.2 pg (25.7-33.7); MCHC 31.3 g/dl (32.0-36.0); MEAN CELL VOLUME 93.4 fl (80-96); MEAN PLT VOLUME 7.7 fl (7.5-11.1); PLATELET COUNT 300 10^3/uL (134-434); RBC 3.04 M/mm3 (3.60-5.2); RDW 21.7 % (11.6-15.6); WHITE BLOOD COUNT 6.8 K/mm3 (4.0-10.0)
[2021-12-08] MEDS: COLLAGENASE CLOSTRIDIUM HIST. 30 GRAMS TUBE TP SCH (16:25)
[2021-12-08] MEDS: MINERAL OIL/PET HY-PHL TOPICAL OINTMENT 454 GM JAR TP SCH (16:25)
[2021-12-08] MEDS: ACETAMINOPHEN 500 MG TABLET (FP) PO PRN (21:33)
[2021-12-09 01:50] VITALS: BP 119/43; PULSE 84; TEMP 98.8
== END 2021-12-09 01:51 | DRG 180 ==
LOC: JER 00:43 → JERBED 05:57 → OBSVTOIN 09:41 → J5S 12:29 → J8W 11-13 18:50 → J2W 11-16 20:16 → J8W 11-26 21:28
PROVIDERS: ADMIT Internal Medicine; ATTEND Internal Medicine
PROC: 0W9G3ZX Drainage of Peritoneal Cavity, Percutaneous Approach, Diagnostic (ICD-10-PCS; principal; 2021-11-05)
PROC: 0HBNXZZ Excision of Left Foot Skin, External Approach (ICD-10-PCS; 2021-11-09)
PROC: 0Y9N0ZZ Drainage of Left Foot, Open Approach (ICD-10-PCS; 2021-11-09)
PROC: 3E10X8Z Irrigation of Skin and Mucous Membranes using Irrigating Substance (ICD-10-PCS; 2021-11-09)
PROC: 0JBR0ZZ Excision of Left Foot Subcutaneous Tissue and Fascia, Open Approach (ICD-10-PCS; 2021-11-13)
PROC: 3E10X8Z Irrigation of Skin and Mucous Membranes using Irrigating Substance (ICD-10-PCS; 2021-11-13)
PROC: 5A1D70Z Performance of Urinary Filtration, Intermittent, Less than 6 Hours Per Day (ICD-10-PCS; 2021-11-28)
PROC: 5A1D70Z Performance of Urinary Filtration, Intermittent, Less than 6 Hours Per Day (ICD-10-PCS; 2021-12-02)
DX: I13.2 Hypertensive heart and chronic kidney disease with heart failure and with stage 5 chronic kidney disease, or end stage renal disease (principal); N18.6 End stage renal disease; Z99.2 Dependence on renal dialysis; G40.909 Epilepsy, unspecified, not intractable, without status epilepticus; I50.23 Acute on chronic systolic (congestive) heart failure; F41.9 Anxiety disorder, unspecified; R18.8 Other ascites; E87.5 Hyperkalemia; I73.9 Peripheral vascular disease, unspecified; I25.10 Atherosclerotic heart disease of native coronary artery without angina pectoris; E66.9 Obesity, unspecified; L03.116 Cellulitis of left lower limb; M25.562 Pain in left knee; R94.31 Abnormal electrocardiogram [ECG] [EKG]; I31.9 Disease of pericardium, unspecified; I43 Cardiomyopathy in diseases classified elsewhere; D63.1 Anemia in chronic kidney disease; A41.51 Sepsis due to Escherichia coli [E. coli]; I31.3 Pericardial effusion (noninflammatory); I44.7 Left bundle-branch block, unspecified; F31.9 Bipolar disorder, unspecified; L89.153 Pressure ulcer of sacral region, stage 3; I32 Pericarditis in diseases classified elsewhere; L97.529 Non-pressure chronic ulcer of other part of left foot with unspecified severity; S80.822A Blister (nonthermal), left lower leg, initial encounter; W19.XXXA Unspecified fall, initial encounter; Y93.9 Activity, unspecified; Y92.009 Unspecified place in unspecified non-institutional (private) residence as the place of occurrence of the external cause; Y99.8 Other external cause status
CPT/HCPCS: 36415; 70450-TC; 71045-TC-FY; 72125-TC; 72131-TC; 72170-TC-FY; 73560-TC-LT-FY; 73630-TC-LT; 73718-TC-LT; 74176-TC; 76700-TC; 76705-TC; 76942-TC; 80048; 80053; 80150; 82042; 82150; 82465; 82945; 82962; 82977; 83605; 83615; 83735; 83986; 84100; 84155; 84157; 84165; 84478; 84484; 85025; 85027; 85610; 85651; 85730; 86140; 86803; 86850; 86900; 86901; 87040; 87070; 87075; 87102; 87116; 87186; 87205; 87206; 87210; 87340; 88108; 88305-TC; 93005; 93010; 93306-TC; 93926-TC; 93970-TC; 94760; 97116-GP; 97162-GP; 99285-25; C9803-CS; G0378; G0480; J1644; J3243; P9047; Q5106; U0003; U0005

== ENCOUNTER 2021-12-11 15:00 | Inpatient (IN) | payer OTHER ==
[2021-12-11 18:33] LABS: BASO % 0.8 % (0-2.0); EOS % 3.9 % (0-4.5); HEMATOCRIT 30.1 % (32.4-45.2); HEMOGLOBIN 9.3 GM/dL (10.7-15.3); LYMPH % 5.4 % (8-40); MCH 29.1 pg (25.7-33.7); MCHC 30.9 g/dl (32.0-36.0); MEAN CELL VOLUME 94.2 fl (80-96); MEAN PLT VOLUME 8.7 fl (7.5-11.1); MONO % 11.6 % (3.8-10.2); NEUT % 78.3 % (42.8-82.8); PLATELET COUNT 372 10^3/uL (134-434); WHITE BLOOD COUNT 8.1 K/mm3 (4.0-10.0)
[2021-12-11 18:51] LABS: CALCIUM 7.9 mg/dL (8.5-10.1)
[2021-12-11 18:53] LABS: CREATININE 6.4 mg/dL (0.55-1.3)
[2021-12-11 18:55] LABS: ALBUMIN 1.7 g/dl (3.4-5.0)
[2021-12-11 18:56] LABS: BILIRUBIN,TOTAL 0.4 mg/dL (0.2-1)
[2021-12-11 18:57] LABS: TOT PROT 7.7 g/dl (6.4-8.2)
[2021-12-11 20:06] LABS: ANISOCYTOSIS 2+; MACROCYTOSIS 1+; OVALOCYTE 1+; PLATELET ESTIMATE ADEQUATE; TARGET CELLS 1+
[2021-12-11] MEDS ORDERED: DAPTOMYCIN 400 MG in SODIUM CHLORIDE 50 ML IVPB ONE (21:15)
[2021-12-12] MEDS ORDERED: MAG HYDROX/AL HYDROX/SIMETH 30 ML UNIT-DOSE CUP PO PRN (01:39)
[2021-12-12] MEDS ORDERED: OLANZapine 5 MG TABLET PO SCH (01:42)
[2021-12-12] MEDS ORDERED: SODIUM PHOSPHATE/NA BIPHOS 133 ML ENEMA RC PRN (01:50)
[2021-12-12] MEDS: INSULIN SLIDING SCALE (NOVOLOG) 1 VIAL SQ SCH ×5 (03:03→22:17)
[2021-12-12] MEDS ORDERED: LORazepam 2 MG/ML SDV VIAL IVPUSH ONE (03:23)
[2021-12-12] MEDS ORDERED: HALOPERIDOL LACTATE 5 MG/ML IM ONE (03:27)
[2021-12-12] MEDS: MELATONIN 5 MG TABLETS PO SCH ×2 (04:31→22:17)
[2021-12-12] MEDS: PHENYTOIN NA EXTENDED 100 MG CAPSULE (FP) PO SCH ×2 (04:31→22:16)
[2021-12-12] MEDS: GABAPENTIN 300 MG CAPSULE PO SCH ×4 (04:31→22:16)
[2021-12-12] MEDS: ACETAMINOPHEN 325 MG TABLET (FP) PO PRN ×2 (04:32→22:17)
[2021-12-12 08:06] VITALS: BMI 34.3
[2021-12-12] MEDS ORDERED: LORazepam 2 MG/ML SDV VIAL IVPUSH SCH (09:30)
[2021-12-12] MEDS: VITAMIN B COMP W-C 1 EA TABLET (NEPHRO-VITE) PO SCH (09:52)
[2021-12-12] MEDS: TORSEMIDE 100 MG TABLET PO SCH (09:52)
[2021-12-12] MEDS: SACUBITRIL/VALSARTAN 24 MG-26 MG TABLET PO SCH ×2 (09:52→22:17)
[2021-12-12] MEDS: CALCIUM (OYSTER SHELL) 500 MG TABLET (FP) PO SCH (09:52)
[2021-12-12] MEDS: FAMOTIDINE 20 MG TABLET PO SCH (09:52)
[2021-12-12] MEDS: MULTIVITAMINS (DAILY MVI) TABLET (FP) PO SCH (09:52)
[2021-12-12] MEDS: ASPIRIN 81 MG CHEWABLE TABLETS PO SCH (09:52)
[2021-12-12] MEDS: CALCITRIOL 0.25 MCG CAPSULE (FP) PO SCH (09:53)
[2021-12-12] MEDS: metoPROLOL SUCCINATE 25 MG TAB.SR.24H (FP) PO SCH (09:54)
[2021-12-12] MEDS: SODIUM ZIRCONIUM CYCLOSILICATE (LOKELMA) 5 GM PACKET PO SCH (09:56)
[2021-12-12] MEDS ORDERED: LORazepam 2 MG/ML SDV VIAL IVPUSH PRN (10:04)
[2021-12-12 11:44] LABS: BASO % 0.5 % (0-2.0); EOS % 4.3 % (0-4.5); HEMATOCRIT 30.1 % (32.4-45.2); HEMOGLOBIN 9.2 GM/dL (10.7-15.3); LYMPH % 9.1 % (8-40); MCH 28.8 pg (25.7-33.7); MCHC 30.7 g/dl (32.0-36.0); MEAN CELL VOLUME 93.8 fl (80-96); MEAN PLT VOLUME 8.2 fl (7.5-11.1); MONO % 13.3 % (3.8-10.2); NEUT % 72.8 % (42.8-82.8); PLATELET COUNT 291 10^3/uL (134-434); RBC 3.21 M/mm3 (3.60-5.2); RDW 22.5 % (11.6-15.6)
[2021-12-12] MEDS: COLLAGENASE CLOSTRIDIUM HIST. 30 GRAMS TUBE TP SCH (12:37)
[2021-12-12] MEDS ORDERED: SODIUM CHLORIDE 250 ML IV PRN (13:00)
[2021-12-12] MEDS ORDERED: EPOETIN ALFA-EPBX 10,000 UNIT/ML VIAL IVPUSH ONE (13:00)
[2021-12-12] MEDS ORDERED: LORazepam 2 MG/ML SDV VIAL IM PRN (20:36)
[2021-12-12] MEDS: OLANZapine 5 MG TABLET PO SCH (22:17)
[2021-12-12] MEDS: LORazepam 0.5 MG TABLET PO PRN (22:17)
[2021-12-13] MEDS: GABAPENTIN 300 MG CAPSULE PO SCH ×3 (05:42→21:18)
[2021-12-13] MEDS: INSULIN SLIDING SCALE (NOVOLOG) 1 VIAL SQ SCH ×4 (06:00→21:18)
[2021-12-13] MEDS: metoPROLOL SUCCINATE 25 MG TAB.SR.24H (FP) PO SCH ×2 (07:35→11:45)
[2021-12-13] MEDS: CALCITRIOL 0.25 MCG CAPSULE (FP) PO SCH (10:58)
[2021-12-13] MEDS: TORSEMIDE 100 MG TABLET PO SCH (11:01)
[2021-12-13] MEDS: FAMOTIDINE 20 MG TABLET PO SCH (11:02)
[2021-12-13] MEDS: SODIUM ZIRCONIUM CYCLOSILICATE (LOKELMA) 5 GM PACKET PO SCH (11:02)
[2021-12-13] MEDS: VITAMIN B COMP W-C 1 EA TABLET (NEPHRO-VITE) PO SCH (11:02)
[2021-12-13] MEDS: OLANZapine 5 MG TABLET PO SCH ×2 (11:02→21:18)
[2021-12-13] MEDS: SACUBITRIL/VALSARTAN 24 MG-26 MG TABLET PO SCH ×2 (11:02→21:18)
[2021-12-13] MEDS: MULTIVITAMINS (DAILY MVI) TABLET (FP) PO SCH (11:02)
[2021-12-13] MEDS: ASPIRIN 81 MG CHEWABLE TABLETS PO SCH (11:04)
[2021-12-13] MEDS: ERGOCALCIFEROL (VIT D2) 50,000 UNIT (1.25 MG) CAPSULE PO SCH (11:04)
[2021-12-13] MEDS: PHENYTOIN NA EXTENDED 100 MG CAPSULE (FP) PO SCH ×2 (11:05→21:18)
[2021-12-13] MEDS: COLLAGENASE CLOSTRIDIUM HIST. 30 GRAMS TUBE TP SCH (11:06)
[2021-12-13] MEDS: CALCIUM (OYSTER SHELL) 500 MG TABLET (FP) PO SCH (11:44)
[2021-12-13] MEDS: MINERAL OIL/PET HY-PHL TOPICAL OINTMENT 454 GM JAR TP SCH (13:15)
[2021-12-13] MEDS: SILVER SULFADIAZINE 1% TOP CREAM 50 GM JAR TP SCH (16:17)
[2021-12-13] MEDS: MELATONIN 5 MG TABLETS PO SCH (21:18)
[2021-12-14] MEDS: LORazepam 0.5 MG TABLET PO PRN ×2 (01:38→22:10)
[2021-12-14] MEDS: GABAPENTIN 300 MG CAPSULE PO SCH ×3 (06:31→22:09)
[2021-12-14] MEDS: INSULIN SLIDING SCALE (NOVOLOG) 1 VIAL SQ SCH ×4 (06:31→22:10)
[2021-12-14] MEDS ORDERED: EPOETIN ALFA-EPBX 10,000 UNIT/ML VIAL IVPUSH ONE (09:00)
[2021-12-14] MEDS ORDERED: SODIUM CHLORIDE 250 ML IV PRN (09:00)
[2021-12-14] MEDS: AMINO ACIDS/PROTEIN HYDROLYS 30 ML LIQUID.PKT PO SCH (11:48)
[2021-12-14] MEDS: MINERAL OIL/PET HY-PHL TOPICAL OINTMENT 454 GM JAR TP SCH (11:49)
[2021-12-14] MEDS: SODIUM ZIRCONIUM CYCLOSILICATE (LOKELMA) 5 GM PACKET PO SCH (11:49)
[2021-12-14] MEDS: TORSEMIDE 100 MG TABLET PO SCH (11:49)
[2021-12-14] MEDS: OLANZapine 5 MG TABLET PO SCH ×2 (11:50→22:10)
[2021-12-14] MEDS: SACUBITRIL/VALSARTAN 24 MG-26 MG TABLET PO SCH ×2 (11:50→22:10)
[2021-12-14] MEDS: FAMOTIDINE 20 MG TABLET PO SCH (11:50)
[2021-12-14] MEDS: CALCITRIOL 0.25 MCG CAPSULE (FP) PO SCH (11:51)
[2021-12-14] MEDS: ZINC SULFATE 220 MG CAPSULE (FP) PO SCH (11:51)
[2021-12-14] MEDS: MULTIVITAMINS (DAILY MVI) TABLET (FP) PO SCH (11:51)
[2021-12-14] MEDS: VITAMIN B COMP W-C 1 EA TABLET (NEPHRO-VITE) PO SCH (11:51)
[2021-12-14] MEDS: CALCIUM (OYSTER SHELL) 500 MG TABLET (FP) PO SCH (11:51)
[2021-12-14] MEDS: ASPIRIN 81 MG CHEWABLE TABLETS PO SCH (11:51)
[2021-12-14] MEDS: SILVER SULFADIAZINE 1% TOP CREAM 50 GM JAR TP SCH (12:00)
[2021-12-14] MEDS: metoPROLOL SUCCINATE 25 MG TAB.SR.24H (FP) PO SCH (12:04)
[2021-12-14] MEDS: AZTREONAM 1 GM in DEXTROSE 5%-WATER - 50 ML IVPB SCH (14:46)
[2021-12-14] MEDS ORDERED: DEXTROSE 5%-WATER - 50 ML IVPB ONE (14:46)
[2021-12-14] MEDS ORDERED: AZTREONAM 1 GM VIAL (RESTRICTED TO ID) ONE (14:46)
[2021-12-14] MEDS: MELATONIN 5 MG TABLETS PO SCH (22:09)
[2021-12-14] MEDS: PHENYTOIN NA EXTENDED 100 MG CAPSULE (FP) PO SCH (22:09)
[2021-12-15] MEDS: INSULIN SLIDING SCALE (NOVOLOG) 1 VIAL SQ SCH ×4 (06:02→22:49)
[2021-12-15] MEDS: GABAPENTIN 300 MG CAPSULE PO SCH ×3 (06:21→22:27)
[2021-12-15] MEDS: AMINO ACIDS/PROTEIN HYDROLYS 30 ML LIQUID.PKT PO SCH (09:20)
[2021-12-15] MEDS: SODIUM ZIRCONIUM CYCLOSILICATE (LOKELMA) 5 GM PACKET PO SCH (09:20)
[2021-12-15] MEDS: TORSEMIDE 100 MG TABLET PO SCH (09:21)
[2021-12-15] MEDS: ASPIRIN 81 MG CHEWABLE TABLETS PO SCH (09:21)
[2021-12-15] MEDS: CALCITRIOL 0.25 MCG CAPSULE (FP) PO SCH (09:21)
[2021-12-15] MEDS: VITAMIN B COMP W-C 1 EA TABLET (NEPHRO-VITE) PO SCH (09:23)
[2021-12-15] MEDS: ZINC SULFATE 220 MG CAPSULE (FP) PO SCH (09:23)
[2021-12-15] MEDS: FAMOTIDINE 20 MG TABLET PO SCH (09:23)
[2021-12-15] MEDS: MULTIVITAMINS (DAILY MVI) TABLET (FP) PO SCH (09:23)
[2021-12-15] MEDS: OLANZapine 5 MG TABLET PO SCH ×2 (09:23→22:27)
[2021-12-15] MEDS: SACUBITRIL/VALSARTAN 24 MG-26 MG TABLET PO SCH ×2 (09:23→22:27)
[2021-12-15] MEDS: CALCIUM (OYSTER SHELL) 500 MG TABLET (FP) PO SCH (09:23)
[2021-12-15] MEDS: SILVER SULFADIAZINE 1% TOP CREAM 50 GM JAR TP SCH (09:24)
[2021-12-15] MEDS: MINERAL OIL/PET HY-PHL TOPICAL OINTMENT 454 GM JAR TP SCH (09:24)
[2021-12-15] MEDS: metoPROLOL SUCCINATE 25 MG TAB.SR.24H (FP) PO SCH (11:36)
[2021-12-15] MEDS ORDERED: AZTREONAM 1 GM VIAL (RESTRICTED TO ID) ONE (13:45)
[2021-12-15] MEDS ORDERED: DEXTROSE 5%-WATER - 50 ML IVPB ONE (13:46)
[2021-12-15] MEDS: AZTREONAM 1 GM in DEXTROSE 5%-WATER - 50 ML IVPB SCH (13:49)
[2021-12-15] MEDS: PHENYTOIN NA EXTENDED 100 MG CAPSULE (FP) PO SCH ×2 (22:27→23:59)
[2021-12-16] MEDS: MELATONIN 5 MG TABLETS PO SCH ×2 (01:28→23:21)
[2021-12-16] MEDS: GABAPENTIN 300 MG CAPSULE PO SCH ×3 (06:13→23:22)
[2021-12-16] MEDS: INSULIN SLIDING SCALE (NOVOLOG) 1 VIAL SQ SCH ×4 (06:13→22:36)
[2021-12-16] MEDS: AMINO ACIDS/PROTEIN HYDROLYS 30 ML LIQUID.PKT PO SCH ×2 (09:32→18:10)
[2021-12-16] MEDS: FAMOTIDINE 20 MG TABLET PO SCH (09:32)
[2021-12-16] MEDS: CALCIUM (OYSTER SHELL) 500 MG TABLET (FP) PO SCH (09:32)
[2021-12-16] MEDS: SODIUM ZIRCONIUM CYCLOSILICATE (LOKELMA) 5 GM PACKET PO SCH (09:32)
[2021-12-16] MEDS: ASPIRIN 81 MG CHEWABLE TABLETS PO SCH (09:32)
[2021-12-16] MEDS: ZINC SULFATE 220 MG CAPSULE (FP) PO SCH (09:33)
[2021-12-16] MEDS: SACUBITRIL/VALSARTAN 24 MG-26 MG TABLET PO SCH ×2 (09:33→23:21)
[2021-12-16] MEDS: OLANZapine 5 MG TABLET PO SCH ×2 (09:33→23:22)
[2021-12-16] MEDS: CALCITRIOL 0.25 MCG CAPSULE (FP) PO SCH (09:33)
[2021-12-16] MEDS: VITAMIN B COMP W-C 1 EA TABLET (NEPHRO-VITE) PO SCH (09:33)
[2021-12-16] MEDS: TORSEMIDE 100 MG TABLET PO SCH (09:34)
[2021-12-16] MEDS: MINERAL OIL/PET HY-PHL TOPICAL OINTMENT 454 GM JAR TP SCH (09:43)
[2021-12-16] MEDS: SILVER SULFADIAZINE 1% TOP CREAM 50 GM JAR TP SCH (09:43)
[2021-12-16] MEDS: MULTIVITAMINS (DAILY MVI) TABLET (FP) PO SCH (09:43)
[2021-12-16] MEDS: metoPROLOL SUCCINATE 25 MG TAB.SR.24H (FP) PO SCH (09:45)
[2021-12-16] MEDS: PHENYTOIN NA EXTENDED 100 MG CAPSULE (FP) PO SCH ×2 (09:48→23:21)
[2021-12-16] MEDS ORDERED: AZTREONAM 1 GM VIAL (RESTRICTED TO ID) ONE (13:04)
[2021-12-16] MEDS ORDERED: DEXTROSE 5%-WATER - 50 ML IVPB ONE (13:04)
[2021-12-16] MEDS: AZTREONAM 1 GM in DEXTROSE 5%-WATER - 50 ML IVPB SCH (13:05)
[2021-12-16] MEDS: HEPARIN NA (PORCINE) 5,000 UNITS/ML 1ML VIAL SQ SCH ×2 (13:57→22:25)
[2021-12-16] MEDS ORDERED: SODIUM CHLORIDE 0.9% 250 ML INFUS.BAG IV ONE (17:45)
[2021-12-16] MEDS ORDERED: SODIUM CHLORIDE 250 ML IV PRN (18:13)
[2021-12-16 20:26] LABS: ALBUMIN 1.5 g/dl (3.4-5.0); BLOOD UREA NITROGEN 37.4 mg/dL (7-18)
[2021-12-16 20:29] LABS: CREATININE 5.9 mg/dL (0.55-1.3)
[2021-12-16 20:30] LABS: TOT PROT 7.1 g/dl (6.4-8.2)
[2021-12-16 20:31] LABS: BILIRUBIN,TOTAL 0.3 mg/dL (0.2-1)
[2021-12-16] MEDS ORDERED: LORazepam 2 MG/ML SDV VIAL IVPUSH ONE (20:33)
[2021-12-16] MEDS: NYSTATIN 500,000 UNITS/5 ML SUSPENSION PO SCH (23:23)
[2021-12-17] MEDS: HEPARIN NA (PORCINE) 5,000 UNITS/ML 1ML VIAL SQ SCH ×3 (05:35→21:04)
[2021-12-17] MEDS: NYSTATIN 500,000 UNITS/5 ML SUSPENSION PO SCH ×3 (05:41→17:44)
[2021-12-17] MEDS: GABAPENTIN 300 MG CAPSULE PO SCH ×3 (05:41→21:05)
[2021-12-17] MEDS ORDERED: DEXTROSE 50%-WATER - 25 GM/50 ML VIAL IVPUSH ONE (05:42)
[2021-12-17] MEDS ORDERED: DEXTROSE 50%-WATER 25 GM/50 ML DISP.SYRIN ONE (06:02)
[2021-12-17] MEDS: INSULIN SLIDING SCALE (NOVOLOG) 1 VIAL SQ SCH ×4 (06:32→21:05)
[2021-12-17] MEDS: AMINO ACIDS/PROTEIN HYDROLYS 30 ML LIQUID.PKT PO SCH (08:36)
[2021-12-17 10:08] LABS: BASO % 0.3 % (0-2.0); EOS % 4.9 % (0-4.5); HEMATOCRIT 28.5 % (32.4-45.2); LYMPH % 20.8 % (8-40); MCH 29.3 pg (25.7-33.7); MCHC 31.5 g/dl (32.0-36.0); MEAN CELL VOLUME 93.1 fl (80-96); MEAN PLT VOLUME 7.8 fl (7.5-11.1); MONO % 4.4 % (3.8-10.2); NEUT % 69.6 % (42.8-82.8); PLATELET COUNT 226 10^3/uL (134-434); RBC 3.06 M/mm3 (3.60-5.2); RDW 21.1 % (11.6-15.6); WHITE BLOOD COUNT 3.1 K/mm3 (4.0-10.0)
[2021-12-17 10:20] LABS: VENOUS BASE EXCESS 3.8 mmol/L (-2-2); VENOUS O2 SATURATION 99.4 % (70-80); VENOUS PCO2 56.2 mmHg (38-52); VENOUS PH 7.357 (7.310-7.410)
[2021-12-17] MEDS: MINERAL OIL/PET HY-PHL TOPICAL OINTMENT 454 GM JAR TP SCH (10:27)
[2021-12-17] MEDS: SILVER SULFADIAZINE 1% TOP CREAM 50 GM JAR TP SCH (10:28)
[2021-12-17 10:30] LABS: CHLORIDE 101 mmol/L (98-107); SODIUM 140 mmol/L (136-145)
[2021-12-17 10:33] LABS: ALBUMIN 1.6 g/dl (3.4-5.0); BLOOD UREA NITROGEN 17.9 mg/dL (7-18); CALCIUM 7.7 mg/dL (8.5-10.1); CO2 32 mmol/L (21-32); GLUCOSE,RANDOM 136 mg/dL (74-106); MAGNESIUM 2.1 mg/dL (1.8-2.4)
[2021-12-17 10:36] LABS: PHOSPHOROUS 3.4 mg/dL (2.5-4.9); SGOT/AST 16 U/L (15-37); SGPT/ALT 9 U/L (13-61)
[2021-12-17 10:37] LABS: BILIRUBIN,TOTAL 0.3 mg/dL (0.2-1)
[2021-12-17 10:38] LABS: TOT PROT 7.5 g/dl (6.4-8.2)
[2021-12-17 10:39] LABS: ALK PHOS 316 U/L (45-117)
[2021-12-17 10:53] LABS: ANION GAP 6 MMOL/L (8-16); CREATININE 3.3 mg/dL (0.55-1.3)
[2021-12-17] MEDS: ASPIRIN 81 MG CHEWABLE TABLETS PO SCH (11:17)
[2021-12-17] MEDS: TORSEMIDE 100 MG TABLET PO SCH (11:18)
[2021-12-17] MEDS: SACUBITRIL/VALSARTAN 24 MG-26 MG TABLET PO SCH ×2 (11:19→21:04)
[2021-12-17] MEDS: ZINC SULFATE 220 MG CAPSULE (FP) PO SCH (11:20)
[2021-12-17] MEDS: CALCIUM (OYSTER SHELL) 500 MG TABLET (FP) PO SCH (11:20)
[2021-12-17] MEDS: SODIUM ZIRCONIUM CYCLOSILICATE (LOKELMA) 5 GM PACKET PO SCH (11:20)
[2021-12-17] MEDS: VITAMIN B COMP W-C 1 EA TABLET (NEPHRO-VITE) PO SCH (11:20)
[2021-12-17] MEDS: FAMOTIDINE 20 MG TABLET PO SCH (11:21)
[2021-12-17] MEDS: CALCITRIOL 0.25 MCG CAPSULE (FP) PO SCH (11:21)
[2021-12-17] MEDS: MULTIVITAMINS (DAILY MVI) TABLET (FP) PO SCH (11:21)
[2021-12-17] MEDS: metoPROLOL SUCCINATE 25 MG TAB.SR.24H (FP) PO SCH (11:22)
[2021-12-17] MEDS: OLANZapine 5 MG TABLET PO SCH ×2 (11:22→21:04)
[2021-12-17] MEDS ORDERED: DEXTROSE 5%-WATER - 50 ML IVPB ONE (12:39)
[2021-12-17] MEDS ORDERED: AZTREONAM 1 GM VIAL (RESTRICTED TO ID) ONE (12:39)
[2021-12-17 12:42] LABS: ANISOCYTOSIS 1+; MACROCYTOSIS 1+; OVALOCYTE 2+; TARGET CELLS 1+
[2021-12-17] MEDS: AZTREONAM 1 GM in DEXTROSE 5%-WATER - 50 ML IVPB SCH (12:46)
[2021-12-17] MEDS: KCL 10 MEQ IVPB 10 MEQ/100 ML INFUS.BAG IVPB SCH ×3 (13:21→15:37)
[2021-12-17] MEDS: LEVOTHYROXINE SODIUM 100 MCG VIAL IVPUSH SCH (17:49)
[2021-12-17] MEDS: PHENYTOIN NA EXTENDED 100 MG CAPSULE (FP) PO SCH (21:04)
[2021-12-17] MEDS: MELATONIN 5 MG TABLETS PO SCH (21:05)
[2021-12-18] MEDS: NYSTATIN 500,000 UNITS/5 ML SUSPENSION PO SCH ×5 (00:11→23:02)
[2021-12-18] MEDS ORDERED: DEXTROSE 50%-WATER - 25 GM/50 ML VIAL IVPUSH ONE ×2 (02:27→09:22)
[2021-12-18] MEDS: GABAPENTIN 300 MG CAPSULE PO SCH ×3 (05:23→21:48)
[2021-12-18] MEDS: HEPARIN NA (PORCINE) 5,000 UNITS/ML 1ML VIAL SQ SCH ×3 (05:23→21:52)
[2021-12-18] MEDS ORDERED: DEXTROSE 50%-WATER 25 GM/50 ML DISP.SYRIN IVPUSH ONE (05:39)
[2021-12-18] MEDS: INSULIN SLIDING SCALE (NOVOLOG) 1 VIAL SQ SCH ×4 (06:22→21:16)
[2021-12-18] MEDS ORDERED: LACTULOSE 20 GM/30 ML UDC (FOR RECTAL USE ONLY) PR ONE (08:00)
[2021-12-18] MEDS ORDERED: SODIUM CHLORIDE 250 ML IV STA (09:22)
[2021-12-18] MEDS: FAMOTIDINE 20 MG TABLET PO SCH (09:26)
[2021-12-18] MEDS: ASPIRIN 81 MG CHEWABLE TABLETS PO SCH (09:26)
[2021-12-18] MEDS: CALCIUM (OYSTER SHELL) 500 MG TABLET (FP) PO SCH (09:26)
[2021-12-18] MEDS: OLANZapine 5 MG TABLET PO SCH ×3 (09:26→21:48)
[2021-12-18] MEDS: ZINC SULFATE 220 MG CAPSULE (FP) PO SCH (09:26)
[2021-12-18] MEDS: VITAMIN B COMP W-C 1 EA TABLET (NEPHRO-VITE) PO SCH (09:26)
[2021-12-18] MEDS: CALCITRIOL 0.25 MCG CAPSULE (FP) PO SCH (09:26)
[2021-12-18] MEDS: MULTIVITAMINS (DAILY MVI) TABLET (FP) PO SCH (09:26)
[2021-12-18] MEDS: TORSEMIDE 100 MG TABLET PO SCH (09:27)
[2021-12-18] MEDS: SILVER SULFADIAZINE 1% TOP CREAM 50 GM JAR TP SCH (09:30)
[2021-12-18] MEDS: SACUBITRIL/VALSARTAN 24 MG-26 MG TABLET PO SCH ×2 (09:30→21:48)
[2021-12-18] MEDS: metoPROLOL SUCCINATE 25 MG TAB.SR.24H (FP) PO SCH (09:31)
[2021-12-18] MEDS: MINERAL OIL/PET HY-PHL TOPICAL OINTMENT 454 GM JAR TP SCH (09:37)
[2021-12-18] MEDS: LEVOTHYROXINE SODIUM 100 MCG VIAL IVPUSH SCH ×2 (09:37→13:43)
[2021-12-18] MEDS: AMINO ACIDS/PROTEIN HYDROLYS 30 ML LIQUID.PKT PO SCH (09:38)
[2021-12-18] MEDS ORDERED: HYDROCORTISONE SOD SUCCINATE 100 MG/2 ML VIAL IVPB ONE (10:15)
[2021-12-18] MEDS ORDERED: DEXTROSE 5%-WATER - 50 ML IVPB ONE (13:36)
[2021-12-18] MEDS ORDERED: AZTREONAM 1 GM VIAL (RESTRICTED TO ID) ONE (13:36)
[2021-12-18] MEDS ORDERED: VANCOMYCIN/WATER FOR INJ (PEG) 1,000 MG/200 ML BAG IVPB ONE (13:37)
[2021-12-18] MEDS: AZTREONAM 1 GM in DEXTROSE 5%-WATER - 50 ML IVPB SCH (13:41)
[2021-12-18] MEDS: PHENYTOIN NA EXTENDED 100 MG CAPSULE (FP) PO SCH (21:47)
[2021-12-18] MEDS: MELATONIN 5 MG TABLETS PO SCH (21:48)
[2021-12-18] MEDS ORDERED: OLANZapine 5 MG TABLET PO SCH (22:00)
[2021-12-19] MEDS: NYSTATIN 500,000 UNITS/5 ML SUSPENSION PO SCH ×4 (05:48→23:11)
[2021-12-19] MEDS: GABAPENTIN 300 MG CAPSULE PO SCH ×3 (05:48→23:10)
[2021-12-19] MEDS: HEPARIN NA (PORCINE) 5,000 UNITS/ML 1ML VIAL SQ SCH ×3 (05:48→22:24)
[2021-12-19] MEDS: INSULIN SLIDING SCALE (NOVOLOG) 1 VIAL SQ SCH ×4 (06:12→22:04)
[2021-12-19] MEDS: AMINO ACIDS/PROTEIN HYDROLYS 30 ML LIQUID.PKT PO SCH (08:02)
[2021-12-19] MEDS ORDERED: SODIUM CHLORIDE 250 ML IV PRN (08:57)
[2021-12-19] MEDS: SACUBITRIL/VALSARTAN 24 MG-26 MG TABLET PO SCH ×2 (09:33→23:10)
[2021-12-19] MEDS: TORSEMIDE 100 MG TABLET PO SCH (09:33)
[2021-12-19] MEDS: ASPIRIN 81 MG CHEWABLE TABLETS PO SCH (09:33)
[2021-12-19] MEDS: VITAMIN B COMP W-C 1 EA TABLET (NEPHRO-VITE) PO SCH (09:33)
[2021-12-19] MEDS: ZINC SULFATE 220 MG CAPSULE (FP) PO SCH (09:33)
[2021-12-19] MEDS: CALCIUM (OYSTER SHELL) 500 MG TABLET (FP) PO SCH (09:33)
[2021-12-19] MEDS: FAMOTIDINE 20 MG TABLET PO SCH (09:33)
[2021-12-19] MEDS: LEVOTHYROXINE SODIUM 100 MCG VIAL IVPUSH SCH (09:34)
[2021-12-19] MEDS: CALCITRIOL 0.25 MCG CAPSULE (FP) PO SCH (09:34)
[2021-12-19] MEDS: metoPROLOL SUCCINATE 25 MG TAB.SR.24H (FP) PO SCH (09:34)
[2021-12-19] MEDS: MULTIVITAMINS (DAILY MVI) TABLET (FP) PO SCH (09:34)
[2021-12-19] MEDS: SILVER SULFADIAZINE 1% TOP CREAM 50 GM JAR TP SCH (11:09)
[2021-12-19] MEDS: MINERAL OIL/PET HY-PHL TOPICAL OINTMENT 454 GM JAR TP SCH (11:09)
[2021-12-19] MEDS ORDERED: LORazepam 2 MG/ML SDV VIAL IM ONE ×2 (13:47→17:59)
[2021-12-19] MEDS: AZTREONAM 1 GM in DEXTROSE 5%-WATER - 50 ML IVPB SCH (15:11)
[2021-12-19 15:15] LABS: BASO % 0.5 % (0-2.0); HEMATOCRIT 27.5 % (32.4-45.2); HEMOGLOBIN 8.7 GM/dL (10.7-15.3); LYMPH % 15.1 % (8-40); MCHC 31.7 g/dl (32.0-36.0); MEAN CELL VOLUME 91.4 fl (80-96); MONO % 2.9 % (3.8-10.2); NEUT % 77.5 % (42.8-82.8); PLATELET COUNT 194 10^3/uL (134-434); RBC 3.01 M/mm3 (3.60-5.2); RDW 20.9 % (11.6-15.6); WHITE BLOOD COUNT 4.3 K/mm3 (4.0-10.0)
[2021-12-19] MEDS ORDERED: VANCOMYCIN 1 GM/200 ML PREMIX BAG IVPB ONE (15:45)
[2021-12-19] MEDS ORDERED: cefTAZidime PENTAHYDRATE 2 GM/11.5 ML SYRINGE (RESTRICTED TO ID) IVPUSH SCH (18:15)
[2021-12-19] MEDS: OLANZapine 5 MG TABLET PO SCH (23:10)
[2021-12-19] MEDS: MELATONIN 5 MG TABLETS PO SCH (23:10)
[2021-12-19] MEDS: PHENYTOIN NA EXTENDED 100 MG CAPSULE (FP) PO SCH (23:10)
[2021-12-20] MEDS: HEPARIN NA (PORCINE) 5,000 UNITS/ML 1ML VIAL SQ SCH ×3 (05:47→21:38)
[2021-12-20] MEDS: GABAPENTIN 300 MG CAPSULE PO SCH ×3 (05:48→23:06)
[2021-12-20] MEDS: NYSTATIN 500,000 UNITS/5 ML SUSPENSION PO SCH ×3 (05:48→17:30)
[2021-12-20] MEDS: INSULIN SLIDING SCALE (NOVOLOG) 1 VIAL SQ SCH ×4 (06:06→21:57)
[2021-12-20] MEDS ORDERED: SODIUM CHLORIDE 250 ML IV PRN (10:48)
[2021-12-20] MEDS ORDERED: EPOETIN ALFA-EPBX 10,000 UNIT/ML VIAL SQ ONE (10:48)
[2021-12-20] MEDS ORDERED: GLUCAGON 1 MG KIT IM ONE (11:52)
[2021-12-20] MEDS ORDERED: HYDROCORTISONE SOD SUCCINATE 100 MG/2 ML VIAL IVPUSH ONE ×2 (12:00→13:30)
[2021-12-20] MEDS: AMINO ACIDS/PROTEIN HYDROLYS 30 ML LIQUID.PKT PO SCH (13:00)
[2021-12-20] MEDS: VITAMIN B COMP W-C 1 EA TABLET (NEPHRO-VITE) PO SCH (13:01)
[2021-12-20] MEDS: SACUBITRIL/VALSARTAN 24 MG-26 MG TABLET PO SCH ×2 (13:01→23:05)
[2021-12-20] MEDS: MINERAL OIL/PET HY-PHL TOPICAL OINTMENT 454 GM JAR TP SCH (13:01)
[2021-12-20] MEDS: ASPIRIN 81 MG CHEWABLE TABLETS PO SCH (13:01)
[2021-12-20] MEDS: TORSEMIDE 100 MG TABLET PO SCH (13:01)
[2021-12-20] MEDS: ERGOCALCIFEROL (VIT D2) 50,000 UNIT (1.25 MG) CAPSULE PO SCH (13:01)
[2021-12-20] MEDS: FAMOTIDINE 20 MG TABLET PO SCH (13:02)
[2021-12-20] MEDS: ZINC SULFATE 220 MG CAPSULE (FP) PO SCH (13:02)
[2021-12-20] MEDS: CALCIUM (OYSTER SHELL) 500 MG TABLET (FP) PO SCH (13:02)
[2021-12-20] MEDS: LEVOTHYROXINE SODIUM 100 MCG VIAL IVPUSH SCH (13:03)
[2021-12-20] MEDS: CALCITRIOL 0.25 MCG CAPSULE (FP) PO SCH (13:03)
[2021-12-20] MEDS: MULTIVITAMINS (DAILY MVI) TABLET (FP) PO SCH (13:03)
[2021-12-20] MEDS: SILVER SULFADIAZINE 1% TOP CREAM 50 GM JAR TP SCH (13:04)
[2021-12-20] MEDS: metoPROLOL SUCCINATE 25 MG TAB.SR.24H (FP) PO SCH (13:09)
[2021-12-20] MEDS ORDERED: SODIUM CHLORIDE 500 ML IV STA (13:09)
[2021-12-20] MEDS ORDERED: DEXTROSE 50%-WATER 25 GM/50 ML DISP.SYRIN IVPUSH ONE ×2 (13:45→23:00)
[2021-12-20] MEDS ORDERED: LEVOTHYROXINE SODIUM 100 MCG VIAL IVPUSH ONE (14:00)
[2021-12-20] MEDS ORDERED: AZTREONAM 1 GM VIAL (RESTRICTED TO ID) ONE (14:13)
[2021-12-20] MEDS ORDERED: DEXTROSE 5%-WATER - 50 ML IVPB ONE (14:14)
[2021-12-20] MEDS: AZTREONAM 1 GM in DEXTROSE 5%-WATER - 50 ML IVPB SCH (14:20)
[2021-12-20 14:50] LABS: ARTERIAL BLD GAS O2 SATURATION 98.5 % (95-98); ARTERIAL BLOOD GAS BASE EXCESS 5.7 mmol/L (-2-2); ARTERIAL BLOOD GAS PO2 129.5 mmHg (80-100)
[2021-12-20 14:51] LABS: ALLENS TEST POSITIVE
[2021-12-20 16:09] LABS: BASO % 0.6 % (0-2.0); EOS % 2.6 % (0-4.5); HEMATOCRIT 26.8 % (32.4-45.2); HEMOGLOBIN 8.4 GM/dL (10.7-15.3); LYMPH % 8.3 % (8-40); MCH 28.9 pg (25.7-33.7); MCHC 31.4 g/dl (32.0-36.0); MEAN CELL VOLUME 92.2 fl (80-96); MONO % 4.3 % (3.8-10.2); NEUT % 84.2 % (42.8-82.8); PLATELET COUNT 181 10^3/uL (134-434); WHITE BLOOD COUNT 8.3 K/mm3 (4.0-10.0)
[2021-12-20 16:22] LABS: CALCIUM 8.2 mg/dL (8.5-10.1)
[2021-12-20 16:23] LABS: ALBUMIN 1.5 g/dl (3.4-5.0); BLOOD UREA NITROGEN 26.3 mg/dL (7-18)
[2021-12-20 16:26] LABS: CREATININE 4.8 mg/dL (0.55-1.3)
[2021-12-20 16:28] LABS: BILIRUBIN,TOTAL 0.3 mg/dL (0.2-1); TOT PROT 6.9 g/dl (6.4-8.2)
[2021-12-20 16:52] LABS: ANISOCYTOSIS 2+; MACROCYTOSIS 0; TARGET CELLS 1+
[2021-12-20] MEDS: MUPIROCIN 2% TOPICAL OINTMENT FOR DECOLONIZATION NS SCH (21:38)
[2021-12-20] MEDS: HYDROCORTISONE SOD SUCCINATE 100 MG/2 ML VIAL IVPUSH SCH (21:38)
[2021-12-20] MEDS: CHLORHEXIDINE GLUCONATE 4% CLEANSER FOR DECOLONIZATION TP SCH (21:38)
[2021-12-20] MEDS ORDERED: DEXTROSE 50%-WATER 25 GM/50 ML DISP.SYRIN ONE (22:58)
[2021-12-20] MEDS: MELATONIN 5 MG TABLETS PO SCH (23:05)
[2021-12-20] MEDS: PHENYTOIN NA EXTENDED 100 MG CAPSULE (FP) PO SCH (23:05)
[2021-12-20] MEDS: OLANZapine 5 MG TABLET PO SCH (23:06)
[2021-12-21] MEDS: NYSTATIN 500,000 UNITS/5 ML SUSPENSION PO SCH ×5 (01:24→23:23)
[2021-12-21] MEDS: GABAPENTIN 300 MG CAPSULE PO SCH ×3 (06:20→21:32)
[2021-12-21] MEDS: HEPARIN NA (PORCINE) 5,000 UNITS/ML 1ML VIAL SQ SCH ×3 (06:20→21:31)
[2021-12-21] MEDS: HYDROCORTISONE SOD SUCCINATE 100 MG/2 ML VIAL IVPUSH SCH ×3 (06:20→21:30)
[2021-12-21 07:18] LABS: HEMATOCRIT 29.6 % (32.4-45.2); MCH 28.2 pg (25.7-33.7); MCHC 30.4 g/dl (32.0-36.0); MEAN CELL VOLUME 92.8 fl (80-96); MEAN PLT VOLUME 8.5 fl (7.5-11.1); PLATELET COUNT 212 10^3/uL (134-434); RBC 3.19 M/mm3 (3.60-5.2); RDW 20.2 % (11.6-15.6); WHITE BLOOD COUNT 5.3 K/mm3 (4.0-10.0)
[2021-12-21 07:38] LABS: ALBUMIN 1.7 g/dl (3.4-5.0); BLOOD UREA NITROGEN 29.6 mg/dL (7-18); CALCIUM 8.4 mg/dL (8.5-10.1); MAGNESIUM 2.5 mg/dL (1.8-2.4)
[2021-12-21 07:39] LABS: CREATININE 5.1 mg/dL (0.55-1.3); PHOSPHOROUS 5.6 mg/dL (2.5-4.9)
[2021-12-21 07:40] LABS: BILIRUBIN,TOTAL 0.3 mg/dL (0.2-1)
[2021-12-21 07:41] LABS: TOT PROT 7.7 g/dl (6.4-8.2)
[2021-12-21] MEDS: AMINO ACIDS/PROTEIN HYDROLYS 30 ML LIQUID.PKT PO SCH (08:21)
[2021-12-21] MEDS ORDERED: AZTREONAM 1 GM VIAL (RESTRICTED TO ID) ONE (09:20)
[2021-12-21] MEDS ORDERED: DEXTROSE 5%-WATER - 50 ML IVPB ONE (09:21)
[2021-12-21] MEDS: AZTREONAM 1 GM in DEXTROSE 5%-WATER - 50 ML IVPB SCH (09:26)
[2021-12-21] MEDS: MINERAL OIL/PET HY-PHL TOPICAL OINTMENT 454 GM JAR TP SCH (09:28)
[2021-12-21] MEDS: SILVER SULFADIAZINE 1% TOP CREAM 50 GM JAR TP SCH (09:29)
[2021-12-21] MEDS: ASPIRIN 81 MG CHEWABLE TABLETS PO SCH (09:31)
[2021-12-21] MEDS: TORSEMIDE 100 MG TABLET PO SCH (09:32)
[2021-12-21] MEDS: VITAMIN B COMP W-C 1 EA TABLET (NEPHRO-VITE) PO SCH (09:33)
[2021-12-21] MEDS: SACUBITRIL/VALSARTAN 24 MG-26 MG TABLET PO SCH ×2 (09:33→21:30)
[2021-12-21] MEDS: ZINC SULFATE 220 MG CAPSULE (FP) PO SCH (09:34)
[2021-12-21] MEDS: CALCIUM (OYSTER SHELL) 500 MG TABLET (FP) PO SCH (09:35)
[2021-12-21] MEDS: FAMOTIDINE 20 MG TABLET PO SCH (09:35)
[2021-12-21] MEDS: CALCITRIOL 0.25 MCG CAPSULE (FP) PO SCH (09:35)
[2021-12-21] MEDS: metoPROLOL SUCCINATE 25 MG TAB.SR.24H (FP) PO SCH (09:36)
[2021-12-21] MEDS: MULTIVITAMINS (DAILY MVI) TABLET (FP) PO SCH (09:36)
[2021-12-21] MEDS ORDERED: ERGOCALCIFEROL (VIT D2) 50,000 UNIT (1.25 MG) CAPSULE PO SCH (10:00)
[2021-12-21] MEDS: levETIRAcetam 500 MG/5 ML INJECTION VIAL IVPB SCH ×2 (10:22→21:31)
[2021-12-21] MEDS: MUPIROCIN 2% TOPICAL OINTMENT FOR DECOLONIZATION NS SCH ×2 (10:34→21:30)
[2021-12-21] MEDS: LEVOTHYROXINE SODIUM 100 MCG VIAL IVPUSH SCH (10:37)
[2021-12-21] MEDS ORDERED: LORazepam 2 MG/ML SDV VIAL IVPUSH ONE ×3 (10:51→23:42)
[2021-12-21] MEDS: INSULIN SLIDING SCALE (NOVOLOG) 1 VIAL SQ SCH ×3 (10:53→22:35)
[2021-12-21] MEDS ORDERED: SODIUM CHLORIDE 250 ML IV PRN ×2 (13:02→13:04)
[2021-12-21] MEDS ORDERED: EPOETIN ALFA-EPBX 10,000 UNIT/ML VIAL SQ ONE (13:30)
[2021-12-21] MEDS ORDERED: DEXTROSE 50%-WATER - 25 GM/50 ML VIAL IVPUSH ONE (16:41)
[2021-12-21] MEDS ORDERED: DEXTROSE 50%-WATER 25 GM/50 ML DISP.SYRIN ONE (16:42)
[2021-12-21] MEDS: CHLORHEXIDINE GLUCONATE 4% CLEANSER FOR DECOLONIZATION TP SCH (21:31)
[2021-12-21] MEDS ORDERED: MELATONIN 5 MG TABLETS PO SCH (22:00)
[2021-12-21] MEDS ORDERED: OLANZapine 5 MG TABLET PO SCH (22:00)
[2021-12-21] MEDS ORDERED: PHENYTOIN NA EXTENDED 100 MG CAPSULE (FP) PO SCH (22:00)
[2021-12-22] MEDS: HYDROCORTISONE SOD SUCCINATE 100 MG/2 ML VIAL IVPUSH SCH ×2 (05:25→12:51)
[2021-12-22] MEDS: HEPARIN NA (PORCINE) 5,000 UNITS/ML 1ML VIAL SQ SCH ×2 (05:25→14:51)
[2021-12-22] MEDS: GABAPENTIN 300 MG CAPSULE PO SCH ×2 (05:27→14:51)
[2021-12-22] MEDS: NYSTATIN 500,000 UNITS/5 ML SUSPENSION PO SCH ×2 (05:28→12:51)
[2021-12-22] MEDS: INSULIN SLIDING SCALE (NOVOLOG) 1 VIAL SQ SCH ×3 (08:54→17:12)
[2021-12-22] MEDS: MUPIROCIN 2% TOPICAL OINTMENT FOR DECOLONIZATION NS SCH (09:54)
[2021-12-22] MEDS: MINERAL OIL/PET HY-PHL TOPICAL OINTMENT 454 GM JAR TP SCH (09:54)
[2021-12-22] MEDS: ASPIRIN 81 MG CHEWABLE TABLETS PO SCH (09:54)
[2021-12-22] MEDS: AZTREONAM 1 GM in DEXTROSE 5%-WATER - 50 ML IVPB SCH (09:54)
[2021-12-22] MEDS: AMINO ACIDS/PROTEIN HYDROLYS 30 ML LIQUID.PKT PO SCH (09:54)
[2021-12-22] MEDS: VITAMIN B COMP W-C 1 EA TABLET (NEPHRO-VITE) PO SCH (09:55)
[2021-12-22] MEDS: ZINC SULFATE 220 MG CAPSULE (FP) PO SCH (09:55)
[2021-12-22] MEDS: TORSEMIDE 100 MG TABLET PO SCH (09:55)
[2021-12-22] MEDS: CALCIUM (OYSTER SHELL) 500 MG TABLET (FP) PO SCH (09:55)
[2021-12-22] MEDS: SACUBITRIL/VALSARTAN 24 MG-26 MG TABLET PO SCH (09:55)
[2021-12-22] MEDS: levETIRAcetam 500 MG/5 ML INJECTION VIAL IVPB SCH (09:55)
[2021-12-22] MEDS: CALCITRIOL 0.25 MCG CAPSULE (FP) PO SCH (09:56)
[2021-12-22] MEDS: FAMOTIDINE 20 MG TABLET PO SCH (09:56)
[2021-12-22] MEDS: SILVER SULFADIAZINE 1% TOP CREAM 50 GM JAR TP SCH (09:56)
[2021-12-22] MEDS: metoPROLOL SUCCINATE 25 MG TAB.SR.24H (FP) PO SCH (09:56)
[2021-12-22] MEDS: LEVOTHYROXINE SODIUM 100 MCG VIAL IVPUSH SCH (09:56)
[2021-12-22] MEDS: MULTIVITAMINS (DAILY MVI) TABLET (FP) PO SCH (09:56)
[2021-12-22] MEDS ORDERED: DEXTROSE 50%-WATER - 25 GM/50 ML VIAL IVPUSH PRN (16:18)
[2021-12-22] MEDS ORDERED: DEXTROSE 50%-WATER 25 GM/50 ML DISP.SYRIN ONE (16:29)
[2021-12-24] MEDS: MORPHINE SULFATE/0.9% NACL/PF 100 MG/100 ML BAG IVPB SCH (02:50)
[2021-12-24 12:14] VITALS: BP 93/68; TEMP 97
[2021-12-24 20:16] VITALS: PULSE 63
[2021-12-25] MEDS: MORPHINE SULFATE/0.9% NACL/PF 100 MG/100 ML BAG IVPB SCH (02:55)
[2021-12-26] MEDS: MORPHINE SULFATE/0.9% NACL/PF 100 MG/100 ML BAG IVPB SCH (02:51)
== END 2021-12-27 07:00 | disposition expired | DRG 720 ==
LOC: JER 15:00 → JERBED 16:44 → J4S 12-12 02:40 → JICU 12-20 12:56 → J5S 12-24 20:05
PROVIDERS: ADMIT Hospitalist; ATTEND Internal Medicine
PROC: 5A1D70Z Performance of Urinary Filtration, Intermittent, Less than 6 Hours Per Day (ICD-10-PCS; principal; 2021-12-19)
DX: A41.02 Sepsis due to Methicillin resistant Staphylococcus aureus (principal); G93.41 Metabolic encephalopathy; I50.23 Acute on chronic systolic (congestive) heart failure; R18.8 Other ascites; R65.21 Severe sepsis with septic shock; I42.9 Cardiomyopathy, unspecified; N17.9 Acute kidney failure, unspecified; N18.6 End stage renal disease; I13.2 Hypertensive heart and chronic kidney disease with heart failure and with stage 5 chronic kidney disease, or end stage renal disease; E88.09 Other disorders of plasma-protein metabolism, not elsewhere classified; F20.1 Disorganized schizophrenia; R56.9 Unspecified convulsions; S91.302A Unspecified open wound, left foot, initial encounter; D63.1 Anemia in chronic kidney disease; F31.9 Bipolar disorder, unspecified; R45.1 Restlessness and agitation; E87.70 Fluid overload, unspecified; E03.9 Hypothyroidism, unspecified; I95.9 Hypotension, unspecified; W19.XXXA Unspecified fall, initial encounter; Y93.9 Activity, unspecified; Y92.89 Other specified places as the place of occurrence of the external cause; Y99.9 Unspecified external cause status; D72.829 Elevated white blood cell count, unspecified; R00.1 Bradycardia, unspecified; E87.5 Hyperkalemia
CPT/HCPCS: 36415; 36600; 70450-TC; 71045-TC-FY; 80053; 82140; 82533; 82803; 82962; 83605; 83735; 84100; 84439; 84443; 84480; 84481; 84484; 85025; 85027; 86803; 87040; 87070; 87186; 87205; 87340; 93005; 93010; 93970-TC; 93971; 99285-25; C9803-CS; G0480; J1644; Q5106; U0003; U0005